=== PATIENT | male | born 1945 | race Hispanic/Latino ===

== ENCOUNTER 2018-10-29 10:38 | Inpatient (IN) | payer MEDICARE, OTHER ==
[~2018-10-29] VITALS: Ht 167.6 cm; Wt 62.6 kg
[2018-10-29] VITALS (7 sets, daily range): BP systolic 2–126; BP diastolic 56–126
[~2018-10-29 10:38] MED LIST: LORTAB 7.51 EA PO; Z.0.ASPIRIN325 MG PO; Z.0.DIOVAN HCT 3201 PO; Z.0.METOPROLOL SUCC5 PO; Z.0.NAPROXEN500 MG PO
--- OUTSIDE RECORDS SUMMARY | 2018-10-29 10:44 | XMS REPORT ---
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 Allergies, Adverse Reactions, Alerts Allergy Name Allergy Type Status Severity Reaction(s) Onset Date Inactive Date Treating Clinician Comments No Known Allergies DA Active U 2018-10-09 00:00:00 No Known Allergies DA Active U 2018-09-30 00:00:00 No Known Allergies DA Active U 2018-09-23 00:00:00 acetaminophen DA Active U 2014-04-21 00:00:00 sulfamethoxazole DA Active U 2014-04-21 00:00:00 trimethoprim DA Active U 2014-04-21 00:00:00 tramadol DA Active U 2014-04-21 00:00:00 Medications This patient has no known medications. Results Test Description Test Time Test Comments Text Results Atomic Results Result Comments CELIAC DISEASE PANEL 2018-10-28 05:09:00 IMMUNOGLOBULIN A (test code=IGA) 563 mg/dL 61-437 Performed At: [facility] [id number] Plaza MD Ph:[phone] At: [facility] [address] [id number] Salas MD Ph:[phone] TISSUE TRANSGLUTAMINASE IGA (test code=TTGIGAAB) <2 U/mL 0-3 Negative 0 - 3 Weak Positive 4 - 10 Positive >10 Tissue Transglutaminase (tTG) has been identified as the endomysial antigen. Studies have demonstr- ated that endomysial IgA antibodies have over 99% specificity for gluten sensitive enteropathy. AB ENDOMYSIAL IGA (test code=ENDOMAAB) Negative Negative TISSUE TRANSGLUTAMINASE IGG (test code=TTGIGGAB) <2 U/mL 0-5 Negative 0 - 5 Weak Positive 6 - 9 Positive >9 GLIADIN ANTIBODY, IGG (test code=GLIAB) 2 units 0-19 Negative 0 - 19 Weak Positive 20 - 30 Moderate to Strong Positive >30 GLIADIN ANTIBODY, IGA (test code=GLIAABA) 43 units 0-19 Negative 0 - 19 Weak Positive 20 - 30 Moderate to Strong Positive >30 SED [id number] 11:06:00* Test Item Value Reference Range Comments SED RATE (test code=SEDW) 6 mm/hr 0-15 WINTROBE METHOD: NORMAL RANGE FOR MEN: 0-9 MM/HR WOMAN: 0-20 MM/HR SED RATE [id number] 11:05:00* Test Item Value Reference Range Comments SED RATE WESTERGREN (test code=SEDW) 6 mm/hr 0-15 URIC [id number] 06:15:00* Test Item Value Reference Range Comments URIC ACID (test code=URIC) 4.4 mg/dL 2.6-7.2 VITAMIN [id number] 06:15:00* Test Item Value Reference Range Comments VITAMIN B12 (test code=VITB12) 405 pg/mL 193-986 THYROID PROFILE [id number] 06:15:00* Test Item Value Reference Range Comments T3 UPTAKE (test code=T3UP) 37.0 % 30.0-40.0 T4 (THYROXINE) (test code=T4) 7.3 ug/dL 4.5-13.9 T7 (FREE THYROXINE INDEX) (test code=T7) 2.70 FTI 1.3-5.1 THYROID STIMULATING HORMONE (test code=TSH) 1.610 uIU/mL 0.36-3.74 TSH REFERENCE RANGES: EUTHYROID: 0.35 - 4.3 mIU/mL HYPO : > 5.5 mIU/mL HYPER : < 0.35 mIU/mL BASIC METABOLIC [id number] 06:06:00* Test Item Value Reference Range Comments SODIUM (test code=NA) 144 mmol/L 136-145 POTASSIUM (test code=K) 3.7 mmol/L 3.5-5.1 CHLORIDE (test code=CL) 112.0 mmol/L 98-107 CARBON DIOXIDE (test code=CO2) 25.0 mmol/L 21-32 ANION GAP (test code=GAP) 10.7 10-20 GLUCOSE (test code=GLU) 96 mg/dL 74-106 BLOOD UREA NITROGEN (test code=BUN) 7 mg/dL 7-18 GLOMERULAR FILTRATION RATE (test code=GFR) > 60 mL/min >=60 Estimated GFR by using Modified MDRD formula.Chronic kidney disease is defined as either kidney damageor GFR <60 mL/min/1.73 m2 for >3 months. CREATININE (test code=CREAT) 0.60 mg/dL 0.7-1.3 BUN/CREATININE RATIO (test code=BUN/CREA) 11.0 10-20 CALCIUM (test code=CA) 8.9 mg/dL 8.5-10.1 [id number] 06:06:00* Test Item Value Reference Range Comments PHOSPHORUS (test code=PHOS) 3.5 mg/dL 2.5-4.9 [id number] 06:06:00* Test Item Value Reference Range Comments MAGNESIUM (test code=MAG) 1.6 mg/dL 1.8-2.4 FOLIC [id number] 06:06:00* Test Item Value Reference Range Comments FOLIC ACID (test code=FOL) 4.1 ng/mL 3.10-17.50 BASIC METABOLIC [id number] 05:47:00* Test Item Value Reference Range Comments SODIUM (test code=NA) 144 mmol/L 136-145 POTASSIUM (test code=K) 3.7 mmol/L 3.5-5.1 CHLORIDE (test code=CL) 112.0 mmol/L 98-107 CARBON DIOXIDE (test code=CO2) mmol/L 21-32 ANION GAP (test code=GAP) 10-20 GLUCOSE (test code=GLU) mg/dL 74-106 BLOOD UREA NITROGEN (test code=BUN) mg/dL 7-18 GLOMERULAR FILTRATION RATE (test code=GFR) mL/min >=60 CREATININE (test code=CREAT) mg/dL 0.7-1.3 BUN/CREATININE RATIO (test code=BUN/CREA) 10-20 CALCIUM (test code=CA) mg/dL 8.5-10.1 [id number] 05:47:00* Test Item Value Reference Range Comments PHOSPHORUS (test code=PHOS) mg/dL 2.5-4.9 [id number] 05:47:00* Test Item Value Reference Range Comments MAGNESIUM (test code=MAG) mg/dL 1.8-2.4 FOLIC [id number] 05:47:00* Test Item Value Reference Range Comments FOLIC ACID (test code=FOL) ng/mL 3.10-17.50 CBC W/AUTO [id number] 05:23:00* Test Item Value Reference Range Comments WHITE BLOOD CELL (test code=WBC) 11.0 K/mm3 4.5-12.5 RED BLOOD CELL (test code=RBC) 4.25 mill/mm3 4.0-5.8 HEMOGLOBIN (test code=HGB) 13.2 gram/dL 13.0-17.5 HEMATOCRIT (test code=HCT) 39.8 % 42.0-52.0 MEAN CELL VOLUME (test code=MCV) 93.6 fL 80-98 MEAN CELL HGB (test code=MCH) 31.1 picogram 27.0-33.0 MEAN CELL HGB CONCETRATION (test code=MCHC) 33.2 gram/dL 33.0-36.0 RED CELL DISTRIBUTION WIDTH (test code=RDW) 14.4 % 11.6-16.2 RED CELL DISTRIBUTION WIDTH SD (test code=RDW-SD) 49.3 fL 37.0-51.0 PLATELET COUNT (test code=PLT) 172 K/mm3 150-450 MEAN PLATELET VOLUME (test code=MPV) 11.1 fL 6.7-11.0 NEUTROPHIL % (test code=NT%) 75.5 % 39.0-69.0 IMMATURE GRANULOCYTE % (test code=IG%) 0.7 % 0.0-5.0 LYMPHOCYTE % (test code=LY%) 14.8 % 25.0-55.0 MONOCYTE % (test code=MO%) 8.0 % 0.0-10.0 EOSINOPHIL % (test code=EO%) 0.7 % 0.0-5.0 BASOPHIL % (test code=BA%) 0.3 % 0.0-1.0 NUCLEATED RBC % (test code=NRBC%) 0.0 % 0-0 NEUTROPHIL # (test code=NT#) 8.29 K/mm3 1.8-7.7 IMMATURE GRANULOCYTE # (test code=IG#) 0.08 x10 3/uL 0-0.03 LYMPHOCYTE # (test code=LY#) 1.63 K/mm3 1.0-5.0 MONOCYTE # (test code=MO#) 0.88 K/mm3 0-0.8 EOSINOPHIL # (test code=EO#) 0.08 K/mm3 0.0-0.5 BASOPHIL # (test code=BA#) 0.03 K/mm3 0.0-0.2 NUCLEATED RBC # (test code=NRBC#) 0.00 K/mm3 0.0-0.1 MANUAL DIFF REQUIRED (test code=MDIFF) NO CBC W/AUTO [id number] 05:20:00* Test Item Value Reference Range Comments WHITE BLOOD CELL (test code=WBC) K/mm3 4.5-12.5 RED BLOOD CELL (test code=RBC) mill/mm3 4.0-5.8 HEMOGLOBIN (test code=HGB) 13.2 gram/dL 13.0-17.5 HEMATOCRIT (test code=HCT) % 42.0-52.0 MEAN CELL VOLUME (test code=MCV) fL 80-98 MEAN CELL HGB (test code=MCH) picogram 27.0-33.0 MEAN CELL HGB CONCETRATION (test code=MCHC) gram/dL 33.0-36.0 RED CELL DISTRIBUTION WIDTH (test code=RDW) % 11.6-16.2 RED CELL DISTRIBUTION WIDTH SD (test code=RDW-SD) fL 37.0-51.0 PLATELET COUNT (test code=PLT) K/mm3 150-450 MEAN PLATELET VOLUME (test code=MPV) fL 6.7-11.0 NEUTROPHIL % (test code=NT%) % 39.0-69.0 IMMATURE GRANULOCYTE % (test code=IG%) % 0.0-5.0 LYMPHOCYTE % (test code=LY%) % 25.0-55.0 MONOCYTE % (test code=MO%) % 0.0-10.0 EOSINOPHIL % (test code=EO%) % 0.0-5.0 BASOPHIL % (test code=BA%) % 0.0-1.0 NEUTROPHIL # (test code=NT#) K/mm3 1.8-7.7 LYMPHOCYTE # (test code=LY#) K/mm3 1.0-5.0 MONOCYTE # (test code=MO#) K/mm3 0-0.8 EOSINOPHIL # (test code=EO#) K/mm3 0.0-0.5 BASOPHIL # (test code=BA#) K/mm3 0.0-0.2 BASIC METABOLIC [id number] 07:02:00* Test Item Value Reference Range Comments SODIUM (test code=NA) 146 mmol/L 136-145 POTASSIUM (test code=K) 3.8 mmol/L 3.5-5.1 CHLORIDE (test code=CL) 118.0 mmol/L 98-107 CARBON DIOXIDE (test code=CO2) 19.0 mmol/L 21-32 ANION GAP (test code=GAP) 12.8 10-20 GLUCOSE (test code=GLU) 99 mg/dL 74-106 BLOOD UREA NITROGEN (test code=BUN) 5 mg/dL 7-18 GLOMERULAR FILTRATION RATE (test code=GFR) > 60 mL/min >=60 Estimated GFR by using Modified MDRD formula.Chronic kidney disease is defined as either kidney damageor GFR <60 mL/min/1.73 m2 for >3 months. CREATININE (test code=CREAT) 0.60 mg/dL 0.7-1.3 BUN/CREATININE RATIO (test code=BUN/CREA) 8.3 10-20 CALCIUM (test code=CA) 8.9 mg/dL 8.5-10.1 BASIC METABOLIC [id number] 06:48:00* Test Item Value Reference Range Comments SODIUM (test code=NA) 146 mmol/L 136-145 POTASSIUM (test code=K) 3.8 mmol/L 3.5-5.1 CHLORIDE (test code=CL) 118.0 mmol/L 98-107 CARBON DIOXIDE (test code=CO2) mmol/L 21-32 ANION GAP (test code=GAP) 10-20 GLUCOSE (test code=GLU) mg/dL 74-106 BLOOD UREA NITROGEN (test code=BUN) mg/dL 7-18 GLOMERULAR FILTRATION RATE (test code=GFR) mL/min >=60 CREATININE (test code=CREAT) mg/dL 0.7-1.3 BUN/CREATININE RATIO (test code=BUN/CREA) 10-20 CALCIUM (test code=CA) mg/dL 8.5-10.1 BASIC METABOLIC [id number] 06:00:00* Test Item Value Reference Range Comments SODIUM (test code=NA) 146 mmol/L 136-145 POTASSIUM (test code=K) 3.6 mmol/L 3.5-5.1 CHLORIDE (test code=CL) 118.0 mmol/L 98-107 CARBON DIOXIDE (test code=CO2) 18.0 mmol/L 21-32 ANION GAP (test code=GAP) 13.6 10-20 GLUCOSE (test code=GLU) 95 mg/dL 74-106 BLOOD UREA NITROGEN (test code=BUN) 7 mg/dL 7-18 GLOMERULAR FILTRATION RATE (test code=GFR) > 60 mL/min >=60 Estimated GFR by using Modified MDRD formula.Chronic kidney disease is defined as either kidney damageor GFR <60 mL/min/1.73 m2 for >3 months. CREATININE (test code=CREAT) 0.60 mg/dL 0.7-1.3 BUN/CREATININE RATIO (test code=BUN/CREA) 11.9 10-20 CALCIUM (test code=CA) 9.3 mg/dL 8.5-10.1 BASIC METABOLIC [id number] 05:49:00* Test Item Value Reference Range Comments SODIUM (test code=NA) 146 mmol/L 136-145 POTASSIUM (test code=K) 3.6 mmol/L 3.5-5.1 CHLORIDE (test code=CL) 118.0 mmol/L 98-107 CARBON DIOXIDE (test code=CO2) mmol/L 21-32 ANION GAP (test code=GAP) 10-20 GLUCOSE (test code=GLU) mg/dL 74-106 BLOOD UREA NITROGEN (test code=BUN) mg/dL 7-18 GLOMERULAR FILTRATION RATE (test code=GFR) mL/min >=60 CREATININE (test code=CREAT) mg/dL 0.7-1.3 BUN/CREATININE RATIO (test code=BUN/CREA) 10-20 CALCIUM (test code=CA) mg/dL 8.5-10.1 CBC W/AUTO [id number] 05:34:00* Test Item Value Reference Range Comments WHITE BLOOD CELL (test code=WBC) 5.4 K/mm3 4.5-12.5 RED BLOOD CELL (test code=RBC) 3.97 mill/mm3 4.0-5.8 HEMOGLOBIN (test code=HGB) 12.5 gram/dL 13.0-17.5 HEMATOCRIT (test code=HCT) 37.5 % 42.0-52.0 MEAN CELL VOLUME (test code=MCV) 94.5 fL 80-98 MEAN CELL HGB (test code=MCH) 31.5 picogram 27.0-33.0 MEAN CELL HGB CONCETRATION (test code=MCHC) 33.3 gram/dL 33.0-36.0 RED CELL DISTRIBUTION WIDTH (test code=RDW) 14.4 % 11.6-16.2 RED CELL DISTRIBUTION WIDTH SD (test code=RDW-SD) 49.5 fL 37.0-51.0 PLATELET COUNT (test code=PLT) 177 K/mm3 150-450 MEAN PLATELET VOLUME (test code=MPV) 11.2 fL 6.7-11.0 NEUTROPHIL % (test code=NT%) 59.7 % 39.0-69.0 IMMATURE GRANULOCYTE % (test code=IG%) 0.6 % 0.0-5.0 LYMPHOCYTE % (test code=LY%) 26.1 % 25.0-55.0 MONOCYTE % (test code=MO%) 10.2 % 0.0-10.0 EOSINOPHIL % (test code=EO%) 2.8 % 0.0-5.0 BASOPHIL % (test code=BA%) 0.6 % 0.0-1.0 NUCLEATED RBC % (test code=NRBC%) 0.0 % 0-0 NEUTROPHIL # (test code=NT#) 3.24 K/mm3 1.8-7.7 IMMATURE GRANULOCYTE # (test code=IG#) 0.03 x10 3/uL 0-0.03 LYMPHOCYTE # (test code=LY#) 1.41 K/mm3 1.0-5.0 MONOCYTE # (test code=MO#) 0.55 K/mm3 0-0.8 EOSINOPHIL # (test code=EO#) 0.15 K/mm3 0.0-0.5 BASOPHIL # (test code=BA#) 0.03 K/mm3 0.0-0.2 NUCLEATED RBC # (test code=NRBC#) 0.00 K/mm3 0.0-0.1 MANUAL DIFF REQUIRED (test code=MDIFF) NO BASIC METABOLIC [id number] 05:38:00* Test Item Value Reference Range Comments SODIUM (test code=NA) 146 mmol/L 136-145 POTASSIUM (test code=K) 4.3 mmol/L 3.5-5.1 CHLORIDE (test code=CL) 117.0 mmol/L 98-107 CARBON DIOXIDE (test code=CO2) 21.0 mmol/L 21-32 ANION GAP (test code=GAP) 12.3 10-20 GLUCOSE (test code=GLU) 86 mg/dL 74-106 BLOOD UREA NITROGEN (test code=BUN) 3 mg/dL 7-18 GLOMERULAR FILTRATION RATE (test code=GFR) > 60 mL/min >=60 Estimated GFR by using Modified MDRD formula.Chronic kidney disease is defined as either kidney damageor GFR <60 mL/min/1.73 m2 for >3 months. CREATININE (test code=CREAT) 0.70 mg/dL 0.7-1.3 BUN/CREATININE RATIO (test code=BUN/CREA) 4.3 10-20 CALCIUM (test code=CA) 9.0 mg/dL 8.5-10.1 BASIC METABOLIC [id number] 05:27:00* Test Item Value Reference Range Comments SODIUM (test code=NA) 146 mmol/L 136-145 POTASSIUM (test code=K) 4.3 mmol/L 3.5-5.1 CHLORIDE (test code=CL) 117.0 mmol/L 98-107 CARBON DIOXIDE (test code=CO2) mmol/L 21-32 ANION GAP (test code=GAP) 10-20 GLUCOSE (test code=GLU) mg/dL 74-106 BLOOD UREA NITROGEN (test code=BUN) mg/dL 7-18 GLOMERULAR FILTRATION RATE (test code=GFR) mL/min >=60 CREATININE (test code=CREAT) mg/dL 0.7-1.3 BUN/CREATININE RATIO (test code=BUN/CREA) 10-20 CALCIUM (test code=CA) mg/dL 8.5-10.1 CBC W/AUTO [id number] 05:03:00* Test Item Value Reference Range Comments WHITE BLOOD CELL (test code=WBC) 5.7 K/mm3 4.5-12.5 RED BLOOD CELL (test code=RBC) 4.34 mill/mm3 4.0-5.8 HEMOGLOBIN (test code=HGB) 13.6 gram/dL 13.0-17.5 HEMATOCRIT (test code=HCT) 40.9 % 42.0-52.0 MEAN CELL VOLUME (test code=MCV) 94.2 fL 80-98 MEAN CELL HGB (test code=MCH) 31.3 picogram 27.0-33.0 MEAN CELL HGB CONCETRATION (test code=MCHC) 33.3 gram/dL 33.0-36.0 RED CELL DISTRIBUTION WIDTH (test code=RDW) 14.2 % 11.6-16.2 RED CELL DISTRIBUTION WIDTH SD (test code=RDW-SD) 49.3 fL 37.0-51.0 PLATELET COUNT (test code=PLT) 149 K/mm3 150-450 MEAN PLATELET VOLUME (test code=MPV) 11.5 fL 6.7-11.0 NEUTROPHIL % (test code=NT%) 47.6 % 39.0-69.0 IMMATURE GRANULOCYTE % (test code=IG%) 0.9 % 0.0-5.0 LYMPHOCYTE % (test code=LY%) 29.5 % 25.0-55.0 MONOCYTE % (test code=MO%) 13.9 % 0.0-10.0 EOSINOPHIL % (test code=EO%) 7.4 % 0.0-5.0 BASOPHIL % (test code=BA%) 0.7 % 0.0-1.0 NUCLEATED RBC % (test code=NRBC%) 0.0 % 0-0 NEUTROPHIL # (test code=NT#) 2.70 K/mm3 1.8-7.7 IMMATURE GRANULOCYTE # (test code=IG#) 0.05 x10 3/uL 0-0.03 LYMPHOCYTE # (test code=LY#) 1.67 K/mm3 1.0-5.0 MONOCYTE # (test code=MO#) 0.79 K/mm3 0-0.8 EOSINOPHIL # (test code=EO#) 0.42 K/mm3 0.0-0.5 BASOPHIL # (test code=BA#) 0.04 K/mm3 0.0-0.2 NUCLEATED RBC # (test code=NRBC#) 0.00 K/mm3 0.0-0.1 MANUAL DIFF REQUIRED (test code=MDIFF) NO CBC W/AUTO [id number] 04:52:00* Test Item Value Reference Range Comments WHITE BLOOD CELL (test code=WBC) K/mm3 4.5-12.5 RED BLOOD CELL (test code=RBC) mill/mm3 4.0-5.8 HEMOGLOBIN (test code=HGB) 13.6 gram/dL 13.0-17.5 HEMATOCRIT (test code=HCT) % 42.0-52.0 MEAN CELL VOLUME (test code=MCV) fL 80-98 MEAN CELL HGB (test code=MCH) picogram 27.0-33.0 MEAN CELL HGB CONCETRATION (test code=MCHC) gram/dL 33.0-36.0 RED CELL DISTRIBUTION WIDTH (test code=RDW) % 11.6-16.2 RED CELL DISTRIBUTION WIDTH SD (test code=RDW-SD) fL 37.0-51.0 PLATELET COUNT (test code=PLT) K/mm3 150-450 MEAN PLATELET VOLUME (test code=MPV) fL 6.7-11.0 NEUTROPHIL % (test code=NT%) % 39.0-69.0 IMMATURE GRANULOCYTE % (test code=IG%) % 0.0-5.0 LYMPHOCYTE % (test code=LY%) % 25.0-55.0 MONOCYTE % (test code=MO%) % 0.0-10.0 EOSINOPHIL % (test code=EO%) % 0.0-5.0 BASOPHIL % (test code=BA%) % 0.0-1.0 NEUTROPHIL # (test code=NT#) K/mm3 1.8-7.7 LYMPHOCYTE # (test code=LY#) K/mm3 1.0-5.0 MONOCYTE # (test code=MO#) K/mm3 0-0.8 EOSINOPHIL # (test code=EO#) K/mm3 0.0-0.5 BASOPHIL # (test code=BA#) K/mm3 0.0-0.2 AB CMV [id number] 13:09:00* Test Item Value Reference Range Comments AB CMV IGM (test code=CMVMAB) <30.0 AU/mL 0.0-29.9 Negative <30.0 Equivocal 30.0 - 34.9 Positive >34.9A positive result is generally indicative of acuteinfection, reactivation or persistent IgM production.Performed At: [facility] [id number] Plaza MD Ph:[phone] -CMVMAB-EBVABAB EBSTEIN LOVE VIRUS [id number] 13:09:00* Test Item Value Reference Range Comments EBV VIRAL CAPSID AB IGM (test code=EBVCAM) <36.0 U/mL 0.0-35.9 Negative <36.0 Equivocal 36.0 - 43.9 Positive >43.9 EBV VIRAL CAPSID AB IGG (test code=EBVCAG) >600.0 U/mL 0.0-17.9 Negative <18.0 Equivocal 18.0 - 21.9 Positive >21.9 DAT-LOVE INTERPRETATION (test code=EBVI) () EBV Interpretation ChartInterpretation EBV-IgM EA(D)-IgG VCA-IgG EBNA-IgGEBV Seronegative - - - -Early Phase + - - -Acute Primary + +or- + -InfectionConvalescence/Past - +or- + +InfectionReactivated +or- +or- + +Infection + Antibody Present - Antibody AbsentPerformed At: [facility] [id number] Kyle L MD Ph:[phone] reported result: Edited by: ALLY on 10/13/18:[id number] 1309: EBVI previously reported as: AB DAT LOVE EARLY AG (test code=EBVEAB) <9.0 U/mL 0.0-8.9 Negative < 9.0 Equivocal 9.0 - 10.9 Positive >10.9 AB DAT LOVE NUCLEAR AG (test code=EBVNAAB) 131.0 U/mL 0.0-17.9 Negative <18.0 Equivocal 18.0 - 21.9 Positive >21.9 -CMVMAB-EBVABAB CMV [id number] 12:09:00* Test Item Value Reference Range Comments AB CMV IGM (test code=CMVMAB) <30.0 AU/mL 0.0-29.9 Negative <30.0 Equivocal 30.0 - 34.9 Positive >34.9A positive result is generally indicative of acuteinfection, reactivation or persistent IgM production.Performed At: [facility] [address] [place], [place] [id number] Plaza MD Ph:[phone] -CMVMAB-EBVABAB EBSTEIN LOVE VIRUS [id number] 12:09:00* Test Item Value Reference Range Comments EBV VIRAL CAPSID AB IGM (test code=EBVCAM) U/mL EBV VIRAL CAPSID AB IGG (test code=EBVCAG) U/mL AB DAT LOVE EARLY AG (test code=EBVEAB) U/mL AB DAT LOVE NUCLEAR AG (test code=EBVNAAB) U/mL -CMVMAB-EBVABBASIC METABOLIC [id number] 08:46:00* Test Item Value Reference Range Comments SODIUM (test code=NA) 144 mmol/L 136-145 POTASSIUM (test code=K) 4.1 mmol/L 3.5-5.1 CHLORIDE (test code=CL) 118.0 mmol/L 98-107 CARBON DIOXIDE (test code=CO2) 17.0 mmol/L 21-32 ANION GAP (test code=GAP) 13.1 10-20 GLUCOSE (test code=GLU) 74 mg/dL 74-106 BLOOD UREA NITROGEN (test code=BUN) 4 mg/dL 7-18 GLOMERULAR FILTRATION RATE (test code=GFR) > 60 mL/min >=60 Estimated GFR by using Modified MDRD formula.Chronic kidney disease is defined as either kidney damageor GFR <60 mL/min/1.73 m2 for >3 months. CREATININE (test code=CREAT) 0.70 mg/dL 0.7-1.3 BUN/CREATININE RATIO (test code=BUN/CREA) 6.1 10-20 CALCIUM (test code=CA) 8.5 mg/dL 8.5-10.1 BASIC METABOLIC [id number] 08:41:00* Test Item Value Reference Range Comments SODIUM (test code=NA) 144 mmol/L 136-145 POTASSIUM (test code=K) 4.1 mmol/L 3.5-5.1 CHLORIDE (test code=CL) 118.0 mmol/L 98-107 CARBON DIOXIDE (test code=CO2) mmol/L 21-32 ANION GAP (test code=GAP) 10-20 GLUCOSE (test code=GLU) mg/dL 74-106 BLOOD UREA NITROGEN (test code=BUN) mg/dL 7-18 GLOMERULAR FILTRATION RATE (test code=GFR) mL/min >=60 CREATININE (test code=CREAT) mg/dL 0.7-1.3 BUN/CREATININE RATIO (test code=BUN/CREA) 10-20 CALCIUM (test code=CA) mg/dL 8.5-10.1 CBC W/AUTO [id number] 08:03:00* Test Item Value Reference Range Comments WHITE BLOOD CELL (test code=WBC) 5.8 K/mm3 4.5-12.5 RED BLOOD CELL (test code=RBC) 4.35 mill/mm3 4.0-5.8 HEMOGLOBIN (test code=HGB) 13.5 gram/dL 13.0-17.5 HEMATOCRIT (test code=HCT) 41.8 % 42.0-52.0 MEAN CELL VOLUME (test code=MCV) 96.1 fL 80-98 MEAN CELL HGB (test code=MCH) 31.0 picogram 27.0-33.0 MEAN CELL HGB CONCETRATION (test code=MCHC) 32.3 gram/dL 33.0-36.0 RED CELL DISTRIBUTION WIDTH (test code=RDW) 15.0 % 11.6-16.2 RED CELL DISTRIBUTION WIDTH SD (test code=RDW-SD) 53.3 fL 37.0-51.0 PLATELET COUNT (test code=PLT) 144 K/mm3 150-450 MEAN PLATELET VOLUME (test code=MPV) 11.5 fL 6.7-11.0 NEUTROPHIL % (test code=NT%) 55.8 % 39.0-69.0 IMMATURE GRANULOCYTE % (test code=IG%) 0.5 % 0.0-5.0 LYMPHOCYTE % (test code=LY%) 28.1 % 25.0-55.0 MONOCYTE % (test code=MO%) 9.4 % 0.0-10.0 EOSINOPHIL % (test code=EO%) 5.5 % 0.0-5.0 BASOPHIL % (test code=BA%) 0.7 % 0.0-1.0 NUCLEATED RBC % (test code=NRBC%) 0.0 % 0-0 NEUTROPHIL # (test code=NT#) 3.25 K/mm3 1.8-7.7 IMMATURE GRANULOCYTE # (test code=IG#) 0.03 x10 3/uL 0-0.03 LYMPHOCYTE # (test code=LY#) 1.64 K/mm3 1.0-5.0 MONOCYTE # (test code=MO#) 0.55 K/mm3 0-0.8 EOSINOPHIL # (test code=EO#) 0.32 K/mm3 0.0-0.5 BASOPHIL # (test code=BA#) 0.04 K/mm3 0.0-0.2 NUCLEATED RBC # (test code=NRBC#) 0.00 K/mm3 0.0-0.1 MANUAL DIFF REQUIRED (test code=MDIFF) NO CBC W/AUTO [id number] 08:02:00* Test Item Value Reference Range Comments WHITE BLOOD CELL (test code=WBC) K/mm3 4.5-12.5 RED BLOOD CELL (test code=RBC) mill/mm3 4.0-5.8 HEMOGLOBIN (test code=HGB) 13.5 gram/dL 13.0-17.5 HEMATOCRIT (test code=HCT) % 42.0-52.0 MEAN CELL VOLUME (test code=MCV) fL 80-98 MEAN CELL HGB (test code=MCH) picogram 27.0-33.0 MEAN CELL HGB CONCETRATION (test code=MCHC) gram/dL 33.0-36.0 RED CELL DISTRIBUTION WIDTH (test code=RDW) % 11.6-16.2 RED CELL DISTRIBUTION WIDTH SD (test code=RDW-SD) fL 37.0-51.0 PLATELET COUNT (test code=PLT) K/mm3 150-450 MEAN PLATELET VOLUME (test code=MPV) fL 6.7-11.0 NEUTROPHIL % (test code=NT%) % 39.0-69.0 IMMATURE GRANULOCYTE % (test code=IG%) % 0.0-5.0 LYMPHOCYTE % (test code=LY%) % 25.0-55.0 MONOCYTE % (test code=MO%) % 0.0-10.0 EOSINOPHIL % (test code=EO%) % 0.0-5.0 BASOPHIL % (test code=BA%) % 0.0-1.0 NEUTROPHIL # (test code=NT#) K/mm3 1.8-7.7 LYMPHOCYTE # (test code=LY#) K/mm3 1.0-5.0 MONOCYTE # (test code=MO#) K/mm3 0-0.8 EOSINOPHIL # (test code=EO#) K/mm3 0.0-0.5 BASOPHIL # (test code=BA#) K/mm3 0.0-0.2 - MRA ABD [id number] 21:16:00 FAX: Brian Lowe [phone] [place]: St: ADM Name: CHARLY GONSALVES [facility] : [birth year] Age/S: 73/M [address] [facility] Unit #: [id number] Loc: [address] [place] [id number] Phys: Brian Lowe MD Acct: [id number] Dis Date: Status: ADM IN PHONE #: [phone] Exam Date: 10/12/2018 1557 FAX #: [phone] Reason: PAIN / COLITIS EXAMS: CPT CODE: [id number] MRA ABD W/CONT 86806 HISTORY: PAIN / COLITIS TECHNIQUE: Axial T2 fat saturation, axial postcontrast fat saturation T1, and coronal postcontrast T1 fat saturation images. COMPARISON: CT of the abdomen and pelvis October 09, 2018 FINDINGS: Hepatobiliary system: There are multiple noncalcified stones within the gallbladder. The liver is within normal limits. Spleen: Grossly normal. Pancreas: Mild fatty replacement. Adrenal g lands: Grossly normal. Kidneys: Multiple simple appearing cortical cysts bilaterally. Visualized gastrointestinal tract: The stomach is within normal limits. Previously seen colonic distention has improved. For example the transverse colon previously was distended up to 5.3 cm but now measures up to 4.1 cm. There are a few fluid filled loops of small bowel but no abnormal small bowel distention. Vascular struct ures: Normal caliber of the abdominal aorta and IVC. No occlusion or steno sis is seen in the abdominal aorta or the proximal branches of the mesente pradeep arteries. Musculoskeletal structures: Degenerative changes are seen throughout the visualized spine. Peritoneum and retrop eritoneum: No abnormal-appearing fluid collections. IMPRESSION: Improvement in the previously seen colonic dist ention. No abnormal bowel wall thickening is seen on this exam to sugges t an infectious or inflammatory or ischemic process involving the bowel. No abnormal caliber, stenosis, or occlusion involving the visualized portions of the aorta or the proximal mesenteric arteries. Choleli thiasis. No pericholecystic fluid or pericholecystic PAGE 1 Signed Report (CONTINUED) FAX: Brian Lowe [phone] [place]: St: ADM Name: CHARLY FLORES [facility] : 1945 Age/S: 73/M 41 [address] [facility] Unit #: [id number] Loc: V.2064 [place] [address] Phys: Brian Lowe MD Acct: [id number] Dis Date: Status: ADM IN PHONE #: [phone] Exam Date: 10/12/2018 1557 FAX #: [phone] Reason: PAIN / COLITIS EXAMS: CPT CODE: [id number] MRA ABD W/CONT 12014 <Continued> inflammatory changes to suggest cholecystitis however. at 2115 Reported and signed by: Joon Wick MD CC: Brian Lowe Technologist: RT COLUM[facility] - TRINH Trnarrd Date/Time/By: 10/12/2018 (2115) : By: [email or web address] Orig Print D/T: S: 10/12/2018 (2118) PAGE 2 Signed Report [id number] 12:40:00* Test Item Value Reference Range Comments GLUBED (test code=GLUBED) 82 mg/dL 74-106 Performed by certified stretching machine operator at [facility] AG GIARDIA [id number] 11:09:00* Test Item Value Reference Range Comments AG GIARDIA FECES (test code=GIARDAG) Negative Negative Performed At: [facility] [address] [id number] Eduardo Salas MD Ph:[phone] SPECIMEN COMMENTS: StoolsBASIC METABOLIC [id number] 05:44:00* Test Item Value Reference Range Comments SODIUM (test code=NA) 144 mmol/L 136-145 POTASSIUM (test code=K) 4.1 mmol/L 3.5-5.1 CHLORIDE (test code=CL) 122.0 mmol/L 98-107 CARBON DIOXIDE (test code=CO2) 17.0 mmol/L 21-32 ANION GAP (test code=GAP) 9.1 10-20 GLUCOSE (test code=GLU) 78 mg/dL 74-106 BLOOD UREA NITROGEN (test code=BUN) 9 mg/dL 7-18 GLOMERULAR FILTRATION RATE (test code=GFR) > 60 mL/min >=60 Estimated GFR by using Modified MDRD formula.Chronic kidney disease is defined as either kidney damageor GFR <60 mL/min/1.73 m2 for >3 months. CREATININE (test code=CREAT) 0.80 mg/dL 0.7-1.3 BUN/CREATININE RATIO (test code=BUN/CREA) 11.2 10-20 CALCIUM (test code=CA) 8.5 mg/dL 8.5-10.1 BASIC METABOLIC [id number] 05:33:00* Test Item Value Reference Range Comments SODIUM (test code=NA) 144 mmol/L 136-145 POTASSIUM (test code=K) 4.1 mmol/L 3.5-5.1 CHLORIDE (test code=CL) 122.0 mmol/L 98-107 CARBON DIOXIDE (test code=CO2) mmol/L 21-32 ANION GAP (test code=GAP) 10-20 GLUCOSE (test code=GLU) mg/dL 74-106 BLOOD UREA NITROGEN (test code=BUN) mg/dL 7-18 GLOMERULAR FILTRATION RATE (test code=GFR) mL/min >=60 CREATININE (test code=CREAT) mg/dL 0.7-1.3 BUN/CREATININE RATIO (test code=BUN/CREA) 10-20 CALCIUM (test code=CA) mg/dL 8.5-10.1 CBC W/AUTO [id number] 05:16:00* Test Item Value Reference Range Comments WHITE BLOOD CELL (test code=WBC) 5.9 K/mm3 4.5-12.5 RED BLOOD CELL (test code=RBC) 3.92 mill/mm3 4.0-5.8 HEMOGLOBIN (test code=HGB) 12.3 gram/dL 13.0-17.5 HEMATOCRIT (test code=HCT) 38.3 % 42.0-52.0 MEAN CELL VOLUME (test code=MCV) 97.7 fL 80-98 MEAN CELL HGB (test code=MCH) 31.4 picogram 27.0-33.0 MEAN CELL HGB CONCETRATION (test code=MCHC) 32.1 gram/dL 33.0-36.0 RED CELL DISTRIBUTION WIDTH (test code=RDW) 15.3 % 11.6-16.2 RED CELL DISTRIBUTION WIDTH SD (test code=RDW-SD) 55.2 fL 37.0-51.0 PLATELET COUNT (test code=PLT) 146 K/mm3 150-450 MEAN PLATELET VOLUME (test code=MPV) 11.5 fL 6.7-11.0 NEUTROPHIL % (test code=NT%) 53.7 % 39.0-69.0 IMMATURE GRANULOCYTE % (test code=IG%) 0.5 % 0.0-5.0 LYMPHOCYTE % (test code=LY%) 27.8 % 25.0-55.0 MONOCYTE % (test code=MO%) 11.7 % 0.0-10.0 EOSINOPHIL % (test code=EO%) 5.6 % 0.0-5.0 BASOPHIL % (test code=BA%) 0.7 % 0.0-1.0 NUCLEATED RBC % (test code=NRBC%) 0.0 % 0-0 NEUTROPHIL # (test code=NT#) 3.17 K/mm3 1.8-7.7 IMMATURE GRANULOCYTE # (test code=IG#) 0.03 x10 3/uL 0-0.03 LYMPHOCYTE # (test code=LY#) 1.64 K/mm3 1.0-5.0 MONOCYTE # (test code=MO#) 0.69 K/mm3 0-0.8 EOSINOPHIL # (test code=EO#) 0.33 K/mm3 0.0-0.5 BASOPHIL # (test code=BA#) 0.04 K/mm3 0.0-0.2 NUCLEATED RBC # (test code=NRBC#) 0.00 K/mm3 0.0-0.1 MANUAL DIFF REQUIRED (test code=MDIFF) NO AB HIV 1 20:51:00* Test Item Value Reference Range Comments AB HIV 1 2 (test code=XBL75HF) Nonreactive NonReactive It is recognized that currently available assays for thedetection of antibodies to HIV-1 and/or HIV-2 may notdetect all infected individuals. A negative test result doesnot exclude the possibility of exposure to or infection withHIV. HIV antibodies may be undetectable in some stages ofthe infection and in some clinical conditions. CBC W/MANUAL [id number] 06:50:00* Test Item Value Reference Range Comments WHITE BLOOD CELL (test code=WBC) 6.2 K/mm3 4.5-12.5 RED BLOOD CELL (test code=RBC) 4.10 mill/mm3 4.0-5.8 HEMOGLOBIN (test code=HGB) 12.9 gram/dL 13.0-17.5 RESULT VERIFIED BY REPEAT ANALYSIS HEMATOCRIT (test code=HCT) 39.0 % 42.0-52.0 MEAN CELL VOLUME (test code=MCV) 95.1 fL 80-98 MEAN CELL HGB (test code=MCH) 31.5 picogram 27.0-33.0 MEAN CELL HGB CONCETRATION (test code=MCHC) 33.1 gram/dL 33.0-36.0 RED CELL DISTRIBUTION WIDTH (test code=RDW) 15.1 % 11.6-16.2 RED CELL DISTRIBUTION WIDTH SD (test code=RDW-SD) 52.6 fL 37.0-51.0 PLATELET COUNT (test code=PLT) 150 K/mm3 150-450 MEAN PLATELET VOLUME (test code=MPV) 11.5 fL 6.7-11.0 IMMATURE GRANULOCYTE % (test code=IG%) 0.3 % 0.0-5.0 NUCLEATED RBC % (test code=NRBC%) 0.0 % 0-0 NEUTROPHIL # (test code=NT#) 3.97 K/mm3 1.8-7.7 IMMATURE GRANULOCYTE # (test code=IG#) 0.02 x10 3/uL 0-0.03 LYMPHOCYTE # (test code=LY#) 1.39 K/mm3 1.0-5.0 MONOCYTE # (test code=MO#) 0.71 K/mm3 0-0.8 EOSINOPHIL # (test code=EO#) 0.06 K/mm3 0.0-0.5 BASOPHIL # (test code=BA#) 0.04 K/mm3 0.0-0.2 NUCLEATED RBC # (test code=NRBC#) 0.00 K/mm3 0.0-0.1 MANUAL DIFF REQUIRED (test code=MDIFF) YES STAIN ACCEPTABILITY (test code=STN ACCEPTABLE) STAIN ACCEPTABLE TOTAL CELLS COUNTED (test code=TCC) 115 #CELLS SEGMENTED NEUTROPHILS (test code=SEG) 65.2 % 39-69 BAND NEUTROPHIL (test code=BAND) 8.7 % 0-10 LYMPHOCYTE (test code=LYMPH) 10.4 % 25-55 REACTIVE LYMPH (test code=RELYMPH) 7.8 % MONOCYTE (test code=MON) 6.1 % 0-10 EOSINOPHIL (test code=EOS) 1.8 % 0.0-5.0 BASOPHIL (test code=BASO) 0 % 0-1.0 METAMYELOCYTE (test code=META) 0 % 0-0 MYELOCYTE (test code=MYELO) 0 % 0.0-0.0 PROMYELOCYTE (test code=PROM) 0 % 0-0 POIKILOCYTOSIS (test code=POIK) 3+ MORPHOLOGY COMMENT (test code=MOC) NORMAL PLATELET ESTIMATE (test code=PLTEST) ADEQUATE PLATELET MORPHOLOGY (test code=PLTMORPH) NORMAL IMMATURE FORMS (test code=IMMAT) 0 % 0-0 CBC W/MANUAL [id number] 05:26:00* Test Item Value Reference Range Comments WHITE BLOOD CELL (test code=WBC) 6.2 K/mm3 4.5-12.5 RED BLOOD CELL (test code=RBC) 4.10 mill/mm3 4.0-5.8 HEMOGLOBIN (test code=HGB) 12.9 gram/dL 13.0-17.5 RESULT VERIFIED BY REPEAT ANALYSIS HEMATOCRIT (test code=HCT) 39.0 % 42.0-52.0 MEAN CELL VOLUME (test code=MCV) 95.1 fL 80-98 MEAN CELL HGB (test code=MCH) 31.5 picogram 27.0-33.0 MEAN CELL HGB CONCETRATION (test code=MCHC) 33.1 gram/dL 33.0-36.0 RED CELL DISTRIBUTION WIDTH (test code=RDW) 15.1 % 11.6-16.2 RED CELL DISTRIBUTION WIDTH SD (test code=RDW-SD) 52.6 fL 37.0-51.0 PLATELET COUNT (test code=PLT) 150 K/mm3 150-450 MEAN PLATELET VOLUME (test code=MPV) 11.5 fL 6.7-11.0 IMMATURE GRANULOCYTE % (test code=IG%) 0.3 % 0.0-5.0 NUCLEATED RBC % (test code=NRBC%) 0.0 % 0-0 NEUTROPHIL # (test code=NT#) 3.97 K/mm3 1.8-7.7 IMMATURE GRANULOCYTE # (test code=IG#) 0.02 x10 3/uL 0-0.03 LYMPHOCYTE # (test code=LY#) 1.39 K/mm3 1.0-5.0 MONOCYTE # (test code=MO#) 0.71 K/mm3 0-0.8 EOSINOPHIL # (test code=EO#) 0.06 K/mm3 0.0-0.5 BASOPHIL # (test code=BA#) 0.04 K/mm3 0.0-0.2 NUCLEATED RBC # (test code=NRBC#) 0.00 K/mm3 0.0-0.1 MANUAL DIFF REQUIRED (test code=MDIFF) YES STAIN ACCEPTABILITY (test code=STN ACCEPTABLE) TOTAL CELLS COUNTED (test code=TCC) #CELLS SEGMENTED NEUTROPHILS (test code=SEG) % 39-69 LYMPHOCYTE (test code=LYMPH) % 25-55 MONOCYTE (test code=MON) % 0-10 EOSINOPHIL (test code=EOS) % 0.0-5.0 CABOT RINGS (test code=CAB) MORPHOLOGY COMMENT (test code=MOC) PLATELET ESTIMATE (test code=PLTEST) PLATELET MORPHOLOGY (test code=PLTMORPH) CBC W/MANUAL [id number] 05:26:00* Test Item Value Reference Range Comments WHITE BLOOD CELL (test code=WBC) 6.2 K/mm3 4.5-12.5 RED BLOOD CELL (test code=RBC) 4.10 mill/mm3 4.0-5.8 HEMOGLOBIN (test code=HGB) 12.9 gram/dL 13.0-17.5 RESULT VERIFIED BY REPEAT ANALYSIS HEMATOCRIT (test code=HCT) 39.0 % 42.0-52.0 MEAN CELL VOLUME (test code=MCV) 95.1 fL 80-98 MEAN CELL HGB (test code=MCH) 31.5 picogram 27.0-33.0 MEAN CELL HGB CONCETRATION (test code=MCHC) 33.1 gram/dL 33.0-36.0 RED CELL DISTRIBUTION WIDTH (test code=RDW) 15.1 % 11.6-16.2 RED CELL DISTRIBUTION WIDTH SD (test code=RDW-SD) 52.6 fL 37.0-51.0 PLATELET COUNT (test code=PLT) 150 K/mm3 150-450 MEAN PLATELET VOLUME (test code=MPV) 11.5 fL 6.7-11.0 IMMATURE GRANULOCYTE % (test code=IG%) 0.3 % 0.0-5.0 NUCLEATED RBC % (test code=NRBC%) 0.0 % 0-0 NEUTROPHIL # (test code=NT#) 3.97 K/mm3 1.8-7.7 IMMATURE GRANULOCYTE # (test code=IG#) 0.02 x10 3/uL 0-0.03 LYMPHOCYTE # (test code=LY#) 1.39 K/mm3 1.0-5.0 MONOCYTE # (test code=MO#) 0.71 K/mm3 0-0.8 EOSINOPHIL # (test code=EO#) 0.06 K/mm3 0.0-0.5 BASOPHIL # (test code=BA#) 0.04 K/mm3 0.0-0.2 NUCLEATED RBC # (test code=NRBC#) 0.00 K/mm3 0.0-0.1 MANUAL DIFF REQUIRED (test code=MDIFF) YES STAIN ACCEPTABILITY (test code=STN ACCEPTABLE) TOTAL CELLS COUNTED (test code=TCC) #CELLS SEGMENTED NEUTROPHILS (test code=SEG) % 39-69 LYMPHOCYTE (test code=LYMPH) % 25-55 MONOCYTE (test code=MON) % 0-10 EOSINOPHIL (test code=EOS) % 0.0-5.0 MORPHOLOGY COMMENT (test code=MOC) PLATELET ESTIMATE (test code=PLTEST) PLATELET MORPHOLOGY (test code=PLTMORPH) CBC W/MANUAL [id number] 05:26:00* Test Item Value Reference Range Comments WHITE BLOOD CELL (test code=WBC) 6.2 K/mm3 4.5-12.5 RED BLOOD CELL (test code=RBC) 4.10 mill/mm3 4.0-5.8 HEMOGLOBIN (test code=HGB) 12.9 gram/dL 13.0-17.5 RESULT VERIFIED BY REPEAT ANALYSIS HEMATOCRIT (test code=HCT) 39.0 % 42.0-52.0 MEAN CELL VOLUME (test code=MCV) 95.1 fL 80-98 MEAN CELL HGB (test code=MCH) 31.5 picogram 27.0-33.0 MEAN CELL HGB CONCETRATION (test code=MCHC) 33.1 gram/dL 33.0-36.0 RED CELL DISTRIBUTION WIDTH (test code=RDW) 15.1 % 11.6-16.2 RED CELL DISTRIBUTION WIDTH SD (test code=RDW-SD) 52.6 fL 37.0-51.0 PLATELET COUNT (test code=PLT) 150 K/mm3 150-450 MEAN PLATELET VOLUME (test code=MPV) 11.5 fL 6.7-11.0 IMMATURE GRANULOCYTE % (test code=IG%) 0.3 % 0.0-5.0 NUCLEATED RBC % (test code=NRBC%) 0.0 % 0-0 NEUTROPHIL # (test code=NT#) 3.97 K/mm3 1.8-7.7 IMMATURE GRANULOCYTE # (test code=IG#) 0.02 x10 3/uL 0-0.03 LYMPHOCYTE # (test code=LY#) 1.39 K/mm3 1.0-5.0 MONOCYTE # (test code=MO#) 0.71 K/mm3 0-0.8 EOSINOPHIL # (test code=EO#) 0.06 K/mm3 0.0-0.5 BASOPHIL # (test code=BA#) 0.04 K/mm3 0.0-0.2 NUCLEATED RBC # (test code=NRBC#) 0.00 K/mm3 0.0-0.1 MANUAL DIFF REQUIRED (test code=MDIFF) YES STAIN ACCEPTABILITY (test code=STN ACCEPTABLE) TOTAL CELLS COUNTED (test code=TCC) #CELLS SEGMENTED NEUTROPHILS (test code=SEG) % 39-69 LYMPHOCYTE (test code=LYMPH) % 25-55 MONOCYTE (test code=MON) % 0-10 MORPHOLOGY COMMENT (test code=MOC) PLATELET ESTIMATE (test code=PLTEST) PLATELET MORPHOLOGY (test code=PLTMORPH) BASIC METABOLIC [id number] 05:25:00* Test Item Value Reference Range Comments SODIUM (test code=NA) 149 mmol/L 136-145 POTASSIUM (test code=K) 4.1 mmol/L 3.5-5.1 CHLORIDE (test code=CL) 124.0 mmol/L 98-107 CARBON DIOXIDE (test code=CO2) 17.0 mmol/L 21-32 ANION GAP (test code=GAP) 12.1 10-20 GLUCOSE (test code=GLU) 84 mg/dL 74-106 BLOOD UREA NITROGEN (test code=BUN) 13 mg/dL 7-18 GLOMERULAR FILTRATION RATE (test code=GFR) > 60 mL/min >=60 Estimated GFR by using Modified MDRD formula.Chronic kidney disease is defined as either kidney damageor GFR <60 mL/min/1.73 m2 for >3 months. CREATININE (test code=CREAT) 1.00 mg/dL 0.7-1.3 BUN/CREATININE RATIO (test code=BUN/CREA) 12.9 10-20 CALCIUM (test code=CA) 7.9 mg/dL 8.5-10.1 [id number] 05:25:00* Test Item Value Reference Range Comments PHOSPHORUS (test code=PHOS) 3.3 mg/dL 2.5-4.9 [id number] 05:25:00* Test Item Value Reference Range Comments MAGNESIUM (test code=MAG) 1.3 mg/dL 1.8-2.4 FOLIC [id number] 05:25:00* Test Item Value Reference Range Comments FOLIC ACID (test code=FOL) 8.1 ng/mL 3.10-17.50 CBC W/MANUAL [id number] 05:25:00* Test Item Value Reference Range Comments WHITE BLOOD CELL (test code=WBC) 6.2 K/mm3 4.5-12.5 RED BLOOD CELL (test code=RBC) 4.10 mill/mm3 4.0-5.8 HEMOGLOBIN (test code=HGB) 12.9 gram/dL 13.0-17.5 RESULT VERIFIED BY REPEAT ANALYSIS HEMATOCRIT (test code=HCT) 39.0 % 42.0-52.0 MEAN CELL VOLUME (test code=MCV) 95.1 fL 80-98 MEAN CELL HGB (test code=MCH) 31.5 picogram 27.0-33.0 MEAN CELL HGB CONCETRATION (test code=MCHC) 33.1 gram/dL 33.0-36.0 RED CELL DISTRIBUTION WIDTH (test code=RDW) 15.1 % 11.6-16.2 RED CELL DISTRIBUTION WIDTH SD (test code=RDW-SD) 52.6 fL 37.0-51.0 PLATELET COUNT (test code=PLT) 150 K/mm3 150-450 MEAN PLATELET VOLUME (test code=MPV) 11.5 fL 6.7-11.0 IMMATURE GRANULOCYTE % (test code=IG%) 0.3 % 0.0-5.0 NUCLEATED RBC % (test code=NRBC%) 0.0 % 0-0 NEUTROPHIL # (test code=NT#) 3.97 K/mm3 1.8-7.7 IMMATURE GRANULOCYTE # (test code=IG#) 0.02 x10 3/uL 0-0.03 LYMPHOCYTE # (test code=LY#) 1.39 K/mm3 1.0-5.0 MONOCYTE # (test code=MO#) 0.71 K/mm3 0-0.8 EOSINOPHIL # (test code=EO#) 0.06 K/mm3 0.0-0.5 BASOPHIL # (test code=BA#) 0.04 K/mm3 0.0-0.2 NUCLEATED RBC # (test code=NRBC#) 0.00 K/mm3 0.0-0.1 MANUAL DIFF REQUIRED (test code=MDIFF) YES STAIN ACCEPTABILITY (test code=STN ACCEPTABLE) TOTAL CELLS COUNTED (test code=TCC) #CELLS SEGMENTED NEUTROPHILS (test code=SEG) % 39-69 LYMPHOCYTE (test code=LYMPH) % 25-55 MONOCYTE (test code=MON) % 0-10 EOSINOPHIL (test code=EOS) % 0.0-5.0 CABOT RINGS (test code=CAB) MORPHOLOGY COMMENT (test code=MOC) PLATELET ESTIMATE (test code=PLTEST) PLATELET MORPHOLOGY (test code=PLTMORPH) CBC W/MANUAL [id number] 05:25:00* Test Item Value Reference Range Comments WHITE BLOOD CELL (test code=WBC) 6.2 K/mm3 4.5-12.5 RED BLOOD CELL (test code=RBC) 4.10 mill/mm3 4.0-5.8 HEMOGLOBIN (test code=HGB) 12.9 gram/dL 13.0-17.5 RESULT VERIFIED BY REPEAT ANALYSIS HEMATOCRIT (test code=HCT) 39.0 % 42.0-52.0 MEAN CELL VOLUME (test code=MCV) 95.1 fL 80-98 MEAN CELL HGB (test code=MCH) 31.5 picogram 27.0-33.0 MEAN CELL HGB CONCETRATION (test code=MCHC) 33.1 gram/dL 33.0-36.0 RED CELL DISTRIBUTION WIDTH (test code=RDW) 15.1 % 11.6-16.2 RED CELL DISTRIBUTION WIDTH SD (test code=RDW-SD) 52.6 fL 37.0-51.0 PLATELET COUNT (test code=PLT) 150 K/mm3 150-450 MEAN PLATELET VOLUME (test code=MPV) 11.5 fL 6.7-11.0 IMMATURE GRANULOCYTE % (test code=IG%) 0.3 % 0.0-5.0 NUCLEATED RBC % (test code=NRBC%) 0.0 % 0-0 NEUTROPHIL # (test code=NT#) 3.97 K/mm3 1.8-7.7 IMMATURE GRANULOCYTE # (test code=IG#) 0.02 x10 3/uL 0-0.03 LYMPHOCYTE # (test code=LY#) 1.39 K/mm3 1.0-5.0 MONOCYTE # (test code=MO#) 0.71 K/mm3 0-0.8 EOSINOPHIL # (test code=EO#) 0.06 K/mm3 0.0-0.5 BASOPHIL # (test code=BA#) 0.04 K/mm3 0.0-0.2 NUCLEATED RBC # (test code=NRBC#) 0.00 K/mm3 0.0-0.1 MANUAL DIFF REQUIRED (test code=MDIFF) YES STAIN ACCEPTABILITY (test code=STN ACCEPTABLE) TOTAL CELLS COUNTED (test code=TCC) #CELLS SEGMENTED NEUTROPHILS (test code=SEG) % 39-69 LYMPHOCYTE (test code=LYMPH) % 25-55 MONOCYTE (test code=MON) % 0-10 EOSINOPHIL (test code=EOS) % 0.0-5.0 CABOT RINGS (test code=CAB) MORPHOLOGY COMMENT (test code=MOC) PLATELET ESTIMATE (test code=PLTEST) PLATELET MORPHOLOGY (test code=PLTMORPH) BASIC METABOLIC [id number] 05:04:00* Test Item Value Reference Range Comments SODIUM (test code=NA) 149 mmol/L 136-145 POTASSIUM (test code=K) 4.1 mmol/L 3.5-5.1 CHLORIDE (test code=CL) 124.0 mmol/L 98-107 CARBON DIOXIDE (test code=CO2) mmol/L 21-32 ANION GAP (test code=GAP) 10-20 GLUCOSE (test code=GLU) mg/dL 74-106 BLOOD UREA NITROGEN (test code=BUN) mg/dL 7-18 GLOMERULAR FILTRATION RATE (test code=GFR) mL/min >=60 CREATININE (test code=CREAT) mg/dL 0.7-1.3 BUN/CREATININE RATIO (test code=BUN/CREA) 10-20 CALCIUM (test code=CA) mg/dL 8.5-10.1 [id number] 05:04:00* Test Item Value Reference Range Comments PHOSPHORUS (test code=PHOS) mg/dL 2.5-4.9 [id number] 05:04:00* Test Item Value Reference Range Comments MAGNESIUM (test code=MAG) mg/dL 1.8-2.4 FOLIC [id number] 05:04:00* Test Item Value Reference Range Comments FOLIC ACID (test code=FOL) ng/mL 3.10-17.50 - XR ABD ACUTE [id number] 13:06:00 FAX: Jazzmine Coyle MD [phone] [place]: [address] St: ADM Name: Gloria [facility]LY JONES [facility] : [birth year] Age/S: 73/M [address] Unit #: [id number] Loc: [place] [address] Phys: Jazzmine Coyle MD Acct: [id number] Dis Date: Status: ADM IN PHONE #: [phone] Exam Date: 10/09/2018 1220 FAX #: [phone] Reason: abd pain EXAMS: CPT CODE: [id number] XR ABD ACUTE W/CHEST [id number] REASON FOR EXAM: abd pain Exam Order Date: 10/09/2018 10:11 AM Ordering M.DHawa: Mumtaz Coyle MD PROCEDURE: - XR ABD ACUTE W/CHEST COMPARISON: CT of the abdomen and pelvis earlier today at 12:03 PM FINDINGS: The lungs are clear. There is no pleural effusion or pneu mothorax. Pulmonary vascularity is within normal limits. Car diomediastinal silhouette is normal in size for technique. The mediastinal contours are within normal limits. Musculoskeletal structures are within normal limits. Gaseous distention of the transverse colon is present. There is also gas within the rectum and descending colon. The fluid distended loops of ascending colon and small bowel are not appreciat ed on this examination. IMPRESSION: No ac axel cardiopulmonary process. Gaseous distention of the transverse colon. There is also gas within the descending colon and rectum. These findings are better characterized on the previous CT of the abdomen and pelvis. at 1306 Reported and signed by: Joon Wick MD CC: Jazzmine Coyle MD Technologist: CINDY SALAZAR, RT(R); Aileen Hutchison RT(R) Trnscrd Date/Time/By: 10/09/2018 (2973) : By: [email or web address] Orig Print D/T: S: 10/09/2018 (2514) PAGE 1 Signed Report - CT ABD PELVIS [id number] 12:52:00 Name: CHARLY FLORES [facility] : 1945 Age/S: 73 / M [address] Unit #: [id number] Loc: [place] [address] Phys: Jazzmine Coyle MD Acct: [id number] Dis Date: Status: ADM IN PHONE #: [phone] Exam Date: 10/09/2018 1156 FAX #: [phone] Reason: PAIN, HEMATEMESIS EXAMS: CPT CODE: [id number] CT ABD PELVIS W/CONT [id number] REASON FOR EXAM: PAIN, HEMATEMESIS EXAM ORDER DATE: 10/09/2018 11:35 AM Ordering M.D.: Jazzmine Coyle MD PROCEDURE: - CT ABD PELVIS W/CONT contrast-enhanced axial CT images were acquired through the abdomen/pelvis at 5 mm intervals. Sagittal and coronal reformatted images were generated. Automated exposure control was utilized for this reduction. Phases of contrast: venous and delayed COMPARISON: Contrast-enhanced CT scan September 30, 2018 FINDINGS: Visualized thorax: There is subsegmental atelectasis in the lung bases. Hepatobiliary system: Normal Pancreas: Mild fatty replacement Spleen: Normal Adrenal glands: Normal Genitourinary system: There are multiple cysts in both kidneys. The largest cyst is located in the mid to inferior pole and measures 1.6 cm in diameter, similar to the prior exam. Bladder and prostate are within normal limits. Gastrointestinal tract and appendix: There is a copious amount of stool in the rectum. There is severe diverticulosis of the sigmoid colon with mural thickening but no pericolonic inflammatory changes. There is also a copious amount of stool and gas within the ascending and transverse and descending colon. Small bowel is distended up to 3 cm in diameter. In the distal small bowel (series 2 image 60) the small bowel caliber narrows to a diameter of 1 cm. The small bowel is distended but proximal and distal to this narrowed segment. Abdominal vascular structures: Atherosclerotic disease is scattered throughout the abdominal aorta and th e iliac arteries. PAGE 1 Signed Report (CONTINUED) Name: CHARLY FLORES [facility] : 1945 Age/S: 73 / M [address] Unit #: [id number] Loc: [place] [address] Phys: Jazzmine Coyle MD Acct: [id number] Dis Date: Status: ADM IN PHONE #: [phone] Exam Date: 10/09/2018 1156 FAX #: [phone] Reason: PAIN, HEMATEMESIS EXAMS: CPT CODE: [id number] CT ABD PELVIS W/CONT 23939 < Continued> Peritoneum and retroperitoneum: No free fluid or free air. No omental or mesenteric masses. No abnormal lymph nodes. Musculoskeletal structures and abdominal wall: Degenerative changes are scattered throughout the spine. Bilateral L5 pars defects are present and there is grade 2 anterolisthesis of L5-S1. There is also retrolisthesis of L2-L3 by distance of 6 mm and marked disc degeneration at L2-L3. Disc degeneration is also present at L4-L5. Bilateral inguinal hernias are present and contains both fat and fluid. IMPRESSION: Multiple mildly distended loops of small bowel measuring up to 2.4 cm with a segment of narrowed small bowel distally. Distal to this narrowed segment, the small bowel is distended up to 2.5 cm and there is a copious amount of stool and gas throughout the colon. These findings may represent a combination of low-grade small bowel obstruction and ileus. Diverticulosis of the sigmoid colon with mural thickening which is likely sequela of prior inflammatory episodes. No pericolonic fat stranding to suggest acute inflammation however. at 1252 Reported and signed by: Joon Wick MD CC: Jazzmine Coyle MD Technologist:Pal Lawton RT(R),(MR),(CT) CTDI: DLP: Trnscb Date/Time: 10/09/2018 (6244) [email or web address] Orig Print D/T: S: 10/09/2018 (8846) PAGE 2 Signed Report BASIC METABOLIC [id number] 10:56:00* Test Item Value Reference Range Comments SODIUM (test code=NA) 145 mmol/L 136-145 POTASSIUM (test code=K) 2.9 mmol/L 3.5-5.1 Results called to by [email or web address] 10/09/18 1056Critical results verified and read back by Nurse? Y CHLORIDE (test code=CL) 114.0 mmol/L 98-107 CARBON DIOXIDE (test code=CO2) 19.0 mmol/L 21-32 ANION GAP (test code=GAP) 14.9 10-20 GLUCOSE (test code=GLU) 121 mg/dL 74-106 BLOOD UREA NITROGEN (test code=BUN) 7 mg/dL 7-18 GLOMERULAR FILTRATION RATE (test code=GFR) > 60 mL/min >=60 Estimated GFR by using Modified MDRD formula.Chronic kidney disease is defined as either kidney damageor GFR <60 mL/min/1.73 m2 for >3 months. CREATININE (test code=CREAT) 1.00 mg/dL 0.7-1.3 BUN/CREATININE RATIO (test code=BUN/CREA) 6.7 10-20 CALCIUM (test code=CA) 9.0 mg/dL 8.5-10.1 HEPATIC FUNCTION [id number] 10:56:00* Test Item Value Reference Range Comments TOTAL PROTEIN (test code=PROT) 7.0 gram/dL 6.4-8.2 ALBUMIN (test code=ALB) 3.2 g/dL 3.4-5.0 GLOBULIN (test code=GLOB) 3.8 gram/dL 2.7-4.2 ALBUMIN/GLOBULIN RATIO (test code=A/G) 0.8 0.75-1.50 BILIRUBIN TOTAL (test code=BILT) 1.10 mg/dL 0.0-1.0 BILIRUBIN DIRECT (test code=BILD) 0.34 mg/dL 0.0-0.20 SGOT/AST (test code=AST) 39 IUnit/L 15-37 SGPT/ALT (test code=ALT) 33 IUnit/L 12-78 ALKALINE PHOSPHATASE TOTAL (test code=ALKP) 74 IUnit/L 45-117 Note change in reference range due to change in reagent. [id number] 10:56:00* Test Item Value Reference Range Comments LIPASE (test code=LIP) 243 U/L 73.0-393.0 PROTHROMBIN [id number] 10:51:00* Test Item Value Reference Range Comments PROTHROMBIN TIME PATIENT (test code=PTP) 14.4 seconds 9.0-14.0 INTERNATIONAL NORMAL RATIO (test code=INR) 1.2 0.8-1.2 The therapeutic range for oral anticoagulant therapy formost indications is an international normalized ratio (INR)of between 2.0 and 3.0. The recommended therapeutic INRrange for various clinical situations is listed below: Clinical Situation INR range Pulmonary e mbolism treatment (2.0-3.0)Venous thrombosis treatmentVenous thrombosis prophylaxis (high risk surgery)Prevention of systemic embolism from: Acute myocardial infarction Valvular heart disease Atrial fibrillation Mechanical prosthetic heart valves (2.5-3.5) IS PATIENT ON ANTICOAGULANTS? NTHROMBOPLASTIN TIME [id number] 10:51:00* Test Item Value Reference Range Comments THROMBOPLASTIN TIME PARTIAL (test code=PTT) 31.6 seconds 25.0-36.5 IS PATIENT ON ANTICOAGULANTS? NCBC W/O [id number] 10:27:00* Test Item Value Reference Range Comments WHITE BLOOD CELL (test code=WBC) 8.5 K/mm3 4.5-12.5 RED BLOOD CELL (test code=RBC) 4.77 mill/mm3 4.0-5.8 HEMOGLOBIN (test code=HGB) 15.1 gram/dL 13.0-17.5 HEMATOCRIT (test code=HCT) 45.5 % 42.0-52.0 MEAN CELL VOLUME (test code=MCV) 95.4 fL 80-98 MEAN CELL HGB (test code=MCH) 31.7 picogram 27.0-33.0 MEAN CELL HGB CONCETRATION (test code=MCHC) 33.2 gram/dL 33.0-36.0 RED CELL DISTRIBUTION WIDTH (test code=RDW) 15.0 % 11.6-16.2 PLATELET COUNT (test code=PLT) 189 K/mm3 150-450 MEAN PLATELET VOLUME (test code=MPV) 10.6 fL 6.7-11.0 COLON [id number] 14:18:00 RUN DATE: 10/08/18 [facility] PAGE 1 RUN TIME: 1418 Specimen Inqui ry RUN USER: INTERFACE PATIENT: CHARLY FLORES ACCT #: V [id number] LOC: [place] U #: [id number] AGE/SX: 73/M ROOM: [facility] RE10/01/18[facility] DR: Brian Lowe MD : 46 BED: A DIS: STATUS: ADM IN TLOC: SPEC #: [id number] RECD: 10/07/18 STATUS: KALIA REQ #: [id number] LUIS FERNANDO: 10/06/181427 [place] DR: Mohamud Gonzalez MD ENTERED: 10/07/180095 SP TYPE: COLONBX OTHR DR: Tammy Story MD ORDERED: DON COPIES TO: Mohamud Gonzalez MD [address] [address] Tammy Ordaz MD [address] 1957 #[address] [place] [id number] PROCEDURES: DON (10/08/18-1158) LOIS SUES: ASCENDING COLON - RANDOM CLINICAL HISTORY COLLECTION DATE: 10/06/2018 ANEMIA, DIARRHEA POST-OP DIAGNOSIS: INTERNAL HEMORRHOID S, COLITIS COMMENT The requisition sheet and specimen container id entified the tissue source as "random ascending colon". Review of the operativ e report indicates the biopsy was taken from the transverse colon. The finding s show biopsies of colonic mucosa with increased inflammation in the lamina pro pria with extension of lymphocytes into the glandular epithelium. Focal acute inflammation and reactive epithelial change are present as well. Pronounced gl andular changes are not noted. The changes present could be seen with microsco pic colitis or a resolving infectious colitis. Features diagnostic of inflamma tory bowel disease are not identified. Clinical correlation is necessary. I ntradepartmental consultation: DMW FINAL DIAGNOSIS Random colon, biop sy: COLITIS WITH CHRONIC AND ACUTE COMPONENTS AND REACTIVE EPITHELIAL CHANGE, see comment NO DISCRETE AREAS OF MUCOSAL EROSION/ULCERATION CONTINUED ON NEXT PAGE RUN WICHO E: 10/08/18 [place] - Lab PAGE 2 RUN TIME: 1418 Specimen Inquiry RUN USER: INTERFACE SPEC #: [id number] PATIENT: CHARLY FLORES # [id number] (Continued) FINAL DIAGNOSIS (Continu ed) NO HYPERPLASTIC OR ADENOMATOUS CHANGE PRESENT NEGATIVE FOR MA JESUS RRB/jus D 97914 MACROSCOPIC The specimen is received in formalin, labeled with the patient's name, identified as "random a scending bx", and consists of multiple valderrama biopsy tissue measuring 1.0 x 0.4 x 0.1 cm, submitted in a single cassette. GROSS PERFORMED AT [facility] [address] [place] [address] [phone])[phone] MICROSCOPIC All of the stains, in cluding any controls performed, stain appropriately. MICROSCOPIC PERFORMED AT [facility] [address] [place] [address] [phone])[phone] PERFORMING SITE Diagnosis per formed at: [facility] KATIA Wade [address] [place] [address] [phone] Signed SIGNATURE ON FILE Ginger Christina MD 10/08/18 1418 EN D OF REPORT BASIC METABOLIC [id number] 04:33:00* Test Item Value Reference Range Comments SODIUM (test code=NA) 144 mmol/L 136-145 POTASSIUM (test code=K) 3.8 mmol/L 3.5-5.1 CHLORIDE (test code=CL) 120.0 mmol/L 98-107 CARBON DIOXIDE (test code=CO2) 17.0 mmol/L 21-32 ANION GAP (test code=GAP) 10.8 10-20 GLUCOSE (test code=GLU) 97 mg/dL 74-106 BLOOD UREA NITROGEN (test code=BUN) 3 mg/dL 7-18 GLOMERULAR FILTRATION RATE (test code=GFR) > 60 mL/min >=60 Estimated GFR by using Modified MDRD formula.Chronic kidney disease is defined as either kidney damageor GFR <60 mL/min/1.73 m2 for >3 months. CREATININE (test code=CREAT) 0.90 mg/dL 0.7-1.3 BUN/CREATININE RATIO (test code=BUN/CREA) 3.4 10-20 CALCIUM (test code=CA) 8.1 mg/dL 8.5-10.1 BASIC METABOLIC [id number] 04:31:00* Test Item Value Reference Range Comments SODIUM (test code=NA) 144 mmol/L 136-145 POTASSIUM (test code=K) 3.8 mmol/L 3.5-5.1 CHLORIDE (test code=CL) 120.0 mmol/L 98-107 CARBON DIOXIDE (test code=CO2) mmol/L 21-32 ANION GAP (test code=GAP) 10-20 GLUCOSE (test code=GLU) mg/dL 74-106 BLOOD UREA NITROGEN (test code=BUN) mg/dL 7-18 GLOMERULAR FILTRATION RATE (test code=GFR) mL/min >=60 CREATININE (test code=CREAT) mg/dL 0.7-1.3 BUN/CREATININE RATIO (test code=BUN/CREA) 10-20 CALCIUM (test code=CA) 8.1 mg/dL 8.5-10.1 BASIC METABOLIC [id number] 12:16:00* Test Item Value Reference Range Comments SODIUM (test code=NA) 146 mmol/L 136-145 POTASSIUM (test code=K) 3.6 mmol/L 3.5-5.1 CHLORIDE (test code=CL) 121.0 mmol/L 98-107 CARBON DIOXIDE (test code=CO2) 16.0 mmol/L 21-32 ANION GAP (test code=GAP) 12.6 10-20 GLUCOSE (test code=GLU) 96 mg/dL 74-106 BLOOD UREA NITROGEN (test code=BUN) 5 mg/dL 7-18 GLOMERULAR FILTRATION RATE (test code=GFR) > 60 mL/min >=60 Estimated GFR by using Modified MDRD formula.Chronic kidney disease is defined as either kidney damageor GFR <60 mL/min/1.73 m2 for >3 months. CREATININE (test code=CREAT) 0.80 mg/dL 0.7-1.3 BUN/CREATININE RATIO (test code=BUN/CREA) 6.4 10-20 CALCIUM (test code=CA) 8.6 mg/dL 8.5-10.1 BASIC METABOLIC [id number] 12:10:00* Test Item Value Reference Range Comments SODIUM (test code=NA) 146 mmol/L 136-145 POTASSIUM (test code=K) 3.6 mmol/L 3.5-5.1 CHLORIDE (test code=CL) 121.0 mmol/L 98-107 CARBON DIOXIDE (test code=CO2) mmol/L 21-32 ANION GAP (test code=GAP) 10-20 GLUCOSE (test code=GLU) mg/dL 74-106 BLOOD UREA NITROGEN (test code=BUN) mg/dL 7-18 GLOMERULAR FILTRATION RATE (test code=GFR) mL/min >=60 CREATININE (test code=CREAT) mg/dL 0.7-1.3 BUN/CREATININE RATIO (test code=BUN/CREA) 10-20 CALCIUM (test code=CA) mg/dL 8.5-10.1 CBC W/O [id number] 11:13:00* Test Item Value Reference Range Comments WHITE BLOOD CELL (test code=WBC) 6.3 K/mm3 4.5-12.5 RED BLOOD CELL (test code=RBC) 4.23 mill/mm3 4.0-5.8 HEMOGLOBIN (test code=HGB) 13.2 gram/dL 13.0-17.5 HEMATOCRIT (test code=HCT) 40.2 % 42.0-52.0 MEAN CELL VOLUME (test code=MCV) 95.0 fL 80-98 MEAN CELL HGB (test code=MCH) 31.2 picogram 27.0-33.0 MEAN CELL HGB CONCETRATION (test code=MCHC) 32.8 gram/dL 33.0-36.0 RED CELL DISTRIBUTION WIDTH (test code=RDW) 14.6 % 11.6-16.2 PLATELET COUNT (test code=PLT) 205 K/mm3 150-450 MEAN PLATELET VOLUME (test code=MPV) 11.2 fL 6.7-11.0 CBC W/O [id number] 11:09:00* Test Item Value Reference Range Comments WHITE BLOOD CELL (test code=WBC) K/mm3 4.5-12.5 RED BLOOD CELL (test code=RBC) mill/mm3 4.0-5.8 HEMOGLOBIN (test code=HGB) 13.2 gram/dL 13.0-17.5 HEMATOCRIT (test code=HCT) % 42.0-52.0 MEAN CELL VOLUME (test code=MCV) fL 80-98 MEAN CELL HGB (test code=MCH) picogram 27.0-33.0 MEAN CELL HGB CONCETRATION (test code=MCHC) gram/dL 33.0-36.0 RED CELL DISTRIBUTION WIDTH (test code=RDW) % 11.6-16.2 PLATELET COUNT (test code=PLT) K/mm3 150-450 MEAN PLATELET VOLUME (test code=MPV) fL 6.7-11.0 URINALYSIS [id number] 22:38:00* Test Item Value Reference Range Comments UA COLOR (test code=COLU) YELLOW YELLOW UA APPEARANCE (test code=APPU) CLEAR CLEAR UA GLUCOSE DIPSTICK (test code=DGLUU) NEGATIVE mg/dL NEGATIVE UA BILIRUBIN DIPSTICK (test code=BILU) NEGATIVE mg/dL NEGATIVE UA KETONE DIPSTICK (test code=KETU) NEGATIVE mg/dL NEGATIVE UA SPECIFIC GRAVITY (test code=SGU) >1.050 1.001-1.035 UA BLOOD DIPSTICK (test code=GRETA) Negative mg/dL NEGATIVE UA PH DIPSTICK (test code=GIANA) 5.5 5.0-8.0 UA PROTEIN DIPSTICK (test code=PROU) 10 (Trace) mg/dL NEGATIVE UA UROBILINIOGEN DIPSTICK (test code=URO) Normal mg/dL NEGATIVE UA NITRITE DIPSTICK (test code=JESSIE) NEGATIVE NEGATIVE UA LEUKOCYTE ESTERASE W REFLEX (test code=LEUUR) NEGATIVE Suzan/uL NEGATIVE UA WBC (test code=WBCU) 0-5 per HPF 0-5 UA RBC (test code=RBCU) 0-2 #/HPF 0-5 UA EPITHELIAL CELLS (test code=EPIU) None seen per HPF FEW UA BACTERIA (test code=BACU) NONE SEEN #/HPF NONE UA MUCUS (test code=MUCU) FEW #/LPF FEW Urine Source? Clean CatchLACTIC [id number] 15:05:00* Test Item Value Reference Range Comments LACTIC ACID (test code=LACT) 1.7 mmol/L 0.4-1.9 - CT ABD PELVIS [id number] 14:42:00 Name: CHARLY FLORES [facility] : 1945 Age/S: 73 / M [address] [facility] Unit #: [id number] Loc: [place] [address] Phys: Zoey Arredondo DO Acct: [id number] Dis Date: Status: REG ER PHONE #: [phone] Exam Date: 09/30/2018 1414 FAX #: [phone] Reason: CODE SEPSIS EXAMS: CPT CODE: [id number] CT ABD PELVIS W/CONT 61757 REASON FOR EXAM: CODE SEPSIS EXAM ORDER DATE: 09/30/2018 12:17 PM Ordering M.D.: Zoey Arredondo DO PROCEDURE: - CT ABD PELVIS W/CONT COMPARISON: FINDINGS: CT images of the abdomen and pelvis were obtained with IV and without oral contrast at 5mm. Dose modulation, iterative reconstruction, and/or weight based adjustment of the MA/KV was utilized to reduce the radiation dose to as low as reasonably achievable. Intravenous contrast: 100cc of Omnipaque 370. The liver, spleen, pancreas are grossly within normal limits. The gallbladder is unremarkable by CT 2 cm cyst in the inferior pole of the right kidney. The urinary bladder is unremarkable. Minimal diffuse fluid distention of small bowel loops and of the colon. The a ppendix is unremarkable. No evidence of free air or free fluid. IMPRESSION: Minimal fluid distention of small bowel loops and colon suggestive of ileus at 1442 Reported and signed by: Shankar Louis M.D. CC: Zoey Arredondo DO Technologi st:[place] RT(R),(MR),(CT) CTDI: DLP: Trnscb Date/Time: (0184) Nereyda Orig Print D/T: S: 09/30/2018 ( 4689) PAGE 1 Signed Report LACTIC [id number] 13:39:00* Test Item Value Reference Range Comments LACTIC ACID (test code=LACT) 2.8 mmol/L 0.4-1.9 Results called to [id number] by VHawaLABBRIONNA 09/30/18 1338Critical results verified and read back by Nurse? Y BASIC METABOLIC [id number] 13:34:00* Test Item Value Reference Range Comments SODIUM (test code=NA) 145 mmol/L 136-145 POTASSIUM (test code=K) 3.4 mmol/L 3.5-5.1 CHLORIDE (test code=CL) 114.0 mmol/L 98-107 CARBON DIOXIDE (test code=CO2) 20.0 mmol/L 21-32 ANION GAP (test code=GAP) 14.4 10-20 GLUCOSE (test code=GLU) 116 mg/dL 74-106 BLOOD UREA NITROGEN (test code=BUN) 7 mg/dL 7-18 GLOMERULAR FILTRATION RATE (test code=GFR) > 60 mL/min >=60 Estimated GFR by using Modified MDRD formula.Chronic kidney disease is defined as either kidney damageor GFR <60 mL/min/1.73 m2 for >3 months. CREATININE (test code=CREAT) 1.00 mg/dL 0.7-1.3 BUN/CREATININE RATIO (test code=BUN/CREA) 7.0 10-20 CALCIUM (test code=CA) 8.8 mg/dL 8.5-10.1 HEPATIC FUNCTION [id number] 13:34:00* Test Item Value Reference Range Comments TOTAL PROTEIN (test code=PROT) 7.0 gram/dL 6.4-8.2 ALBUMIN (test code=ALB) 3.2 g/dL 3.4-5.0 GLOBULIN (test code=GLOB) 3.8 gram/dL 2.7-4.2 ALBUMIN/GLOBULIN RATIO (test code=A/G) 0.8 0.75-1.50 BILIRUBIN TOTAL (test code=BILT) 0.90 mg/dL 0.0-1.0 BILIRUBIN DIRECT (test code=BILD) 0.17 mg/dL 0.0-0.20 SGOT/AST (test code=AST) 50 IUnit/L 15-37 SGPT/ALT (test code=ALT) 36 IUnit/L 12-78 ALKALINE PHOSPHATASE TOTAL (test code=ALKP) 69 IUnit/L 45-117 Note change in reference range due to change in reagent. [id number] 13:34:00* Test Item Value Reference Range Comments TROPONIN-I (test code=TROPI) <0.015 ng/mL 0-0.045 BASIC METABOLIC [id number] 13:23:00* Test Item Value Reference Range Comments SODIUM (test code=NA) 145 mmol/L 136-145 POTASSIUM (test code=K) 3.4 mmol/L 3.5-5.1 CHLORIDE (test code=CL) 114.0 mmol/L 98-107 CARBON DIOXIDE (test code=CO2) mmol/L 21-32 ANION GAP (test code=GAP) 10-20 GLUCOSE (test code=GLU) mg/dL 74-106 BLOOD UREA NITROGEN (test code=BUN) mg/dL 7-18 GLOMERULAR FILTRATION RATE (test code=GFR) mL/min >=60 CREATININE (test code=CREAT) mg/dL 0.7-1.3 BUN/CREATININE RATIO (test code=BUN/CREA) 10-20 CALCIUM (test code=CA) mg/dL 8.5-10.1 HEPATIC FUNCTION [id number] 13:23:00* Test Item Value Reference Range Comments TOTAL PROTEIN (test code=PROT) gram/dL 6.4-8.2 ALBUMIN (test code=ALB) g/dL 3.4-5.0 GLOBULIN (test code=GLOB) gram/dL 2.7-4.2 ALBUMIN/GLOBULIN RATIO (test code=A/G) 0.75-1.50 BILIRUBIN TOTAL (test code=BILT) mg/dL 0.0-1.0 BILIRUBIN DIRECT (test code=BILD) mg/dL 0.0-0.20 SGOT/AST (test code=AST) IUnit/L 15-37 SGPT/ALT (test code=ALT) IUnit/L 12-78 ALKALINE PHOSPHATASE TOTAL (test code=ALKP) IUnit/L 45-117 [id number] 13:23:00* Test Item Value Reference Range Comments TROPONIN-I (test code=TROPI) ng/mL 0-0.045 - XR CHEST 1 [id number] 13:19:00 FAX: Zoey Arredondo DO [place]: B St: REG Name: CHARLY GONSALVES [facility] : [birth year] Age/S: 73/M [address] Unit #: [id number] Loc: ROSI [place] [address] Phys: Zoey Arredondo DO Acct: [id number] Dis Date: Status: REG ER PHONE #: [phone] Exam Date: 09/30/2018 1230 FAX #: [phone] Reason: CODE SEPSIS EXAMS: CPT CODE: [id number] XR CHEST 1 V 72961 REASON FOR EXAM: CODE SEPSIS Exam Order Date: 09/30/2018 12:17 PM Ordering M.Gulshan.: Zoey Arredondo DO PROCEDURE: - XR CHEST 1 V COMP ARISON: Frontal chest radiograph September 27, 2018 FINDINGS: The lungs are clear. There is no pleural effusion or pneumothorax. Pulmon cuong vascularity is within normal limits. Cardiomediastinal silhoue tte is normal in size for technique. Mild tortuosity of the thoracic aorta is unchanged. Musculoskeletal structures are within normal limits. The visualized upper abdomen is within normal limits. IMPRESSION: No acute cardiopulmonary process. Electron ically Signed by Joon Wick MD on 09/30/2018 at 3621 Re ported and signed by: Joon Wick MD CC: Zoey Arredondo DO Technologist: SNEHA MURRELL JR Trnscrd Date/Time/By: 09/30/2018 (8220) : By: [email or web address] Orig Print D/T: S: 09/30/2018 (2338) PAGE 1 Signed Report CBC W/AUTO DIFF 2018-09-30 12:33:00* Test Item Value Reference Range Comments WHITE BLOOD CELL (test code=WBC) 7.2 K/mm3 4.5-12.5 RED BLOOD CELL (test code=RBC) 4.79 mill/mm3 4.0-5.8 HEMOGLOBIN (test code=HGB) 14.9 gram/dL 13.0-17.5 HEMATOCRIT (test code=HCT) 46.7 % 42.0-52.0 MEAN CELL VOLUME (test code=MCV) 97.5 fL 80-98 MEAN CELL HGB (test code=MCH) 31.1 picogram 27.0-33.0 MEAN CELL HGB CONCETRATION (test code=MCHC) 31.9 gram/dL 33.0-36.0 RED CELL DISTRIBUTION WIDTH (test code=RDW) 14.5 % 11.6-16.2 RED CELL DISTRIBUTION WIDTH SD (test code=RDW-SD) 52.1 fL 37.0-51.0 PLATELET COUNT (test code=PLT) 209 K/mm3 150-450 MEAN PLATELET VOLUME (test code=MPV) 10.8 fL 6.7-11.0 NEUTROPHIL % (test code=NT%) 78.6 % 39.0-69.0 IMMATURE GRANULOCYTE % (test code=IG%) 0.8 % 0.0-5.0 LYMPHOCYTE % (test code=LY%) 10.6 % 25.0-55.0 MONOCYTE % (test code=MO%) 7.9 % 0.0-10.0 EOSINOPHIL % (test code=EO%) 1.5 % 0.0-5.0 BASOPHIL % (test code=BA%) 0.6 % 0.0-1.0 NUCLEATED RBC % (test code=NRBC%) 0.0 % 0-0 NEUTROPHIL # (test code=NT#) 5.66 K/mm3 1.8-7.7 IMMATURE GRANULOCYTE # (test code=IG#) 0.06 x10 3/uL 0-0.03 LYMPHOCYTE # (test code=LY#) 0.76 K/mm3 1.0-5.0 MONOCYTE # (test code=MO#) 0.57 K/mm3 0-0.8 EOSINOPHIL # (test code=EO#) 0.11 K/mm3 0.0-0.5 BASOPHIL # (test code=BA#) 0.04 K/mm3 0.0-0.2 NUCLEATED RBC # (test code=NRBC#) 0.00 K/mm3 0.0-0.1 MANUAL DIFF REQUIRED (test code=MDIFF) NO POC LACTIC [id number] 12:24:00* Test Item Value Reference Range Comments POC LACTIC ACID (test code=POCLAC) 2.92 MMOL/L 0.4-2.2 DUODENUM,[id number] 10:33:00 RUN DATE: 09/29/18 [place] [facility] PAGE 1 RUN TIME: 1033 Specimen Inqui ry RUN USER: INTERFACE PATIENT: CHARLY FLORES ACCT #: [id number] LOC: [place] U #: [id number] AGE/SX: 73/M ROOM: [facility] RE09/24/18REG DR: Pavan Spivey MD : 47 BED: 4 DIS: 09/26/18 STATUS: DIS IN TLOC: SPEC #: [id number] RECD: 09/25/18 STATUS: KALIA KRUGER #: [id number] LUIS FERNANDO: 09/25/[address] [place] [address]: Pavan Spivey MD ENTERED: 09/25/18144 SP TYPE: BX DUODEN OTHR DR: Doris Kyleigh isabella or Family Physician Mohamud Gonzalez MDORDERED: GROSS COPIES TO: Doris Primary or Family Physician Pavan Spivey MD [address] [place] [address]. [address] [address] Mohamud Gonzalez MD [address] [place], [place] [id number] PROCEDURES: GROSS (09/28/18-153) TISSUES: 1. DUODENUM, NOS - BX 2. ANTRUM - BX 3. FUNDUS - NODULE BX 4. FUNDUS - AND PYLORI BX 5. CECUM, NOS - POLYP HS 6. ASCENDING COLON - BX 7. ASCENDING COLON - POLYP BX 8. COLON, NOS - RANDOM BX CLINICAL HISTORY COLLECTION DATE: 09/25/2018 DIARRHEA, GATROENTENTIS POST-OP DIAGNOSIS:GASTRITIS, HIATAL HERNIAGASTRIC NODULE AND FUNDUS: INTERNAL HEMORRHOIDS DIVERTICULOSIS, COLON P[OLYP, COLITIS COMMENT Mixed inflammation is seen in biopsies from the colon. The inflammatory infiltrate p resent consists of lymphocytes, plasma cells, patchy increased neutrophils and eosinophils. Acute inflammatory cells extend into the glandular epithelium in s ome areas but well formed crypt abscess are not seen. No granulomas are identi fied. Scattered branched glands and slightly curved glands are present. Rach er, the glands CONTINUED ON NEXT PAGE ----- -------RUN DATE: 09/29/18 [place] [facility] PAGE 2 RUN TIME: 1033 Specimen Inquiry RUN USER: INTERFACE SPEC #: [id number] PATIENT: CHARLY FLORES #[id number] (Continued) COMMENT (Continued) are not markedly shortened. The inflammtory changes are more marked in the ascending colon biopsy compared to the random colon biopsies. A lthough the features are somewhat nonspecific, they are suggestive of an infect ious etiology. The mild glandular changes suggest some chronicity to the proce ss and inflammatory bowel disease is not entirely excluded. Clinical correlati on is necessary. Intradepartmental consultation: DMW. FINAL DIAGNOSI S Duodenum, biopsy: DUODENAL MUCOSA WITH MILD VILLOUS BLUNTING, MODERA TE MIXED INFLAMMATION AND REACTIVE EPITHELIAL CHANGE (PEPTIC DUODENITI S) NEGATIVE FOR MALIGNANCY Gastric antrum and body, biopsy: CHRONIC ACTIVE GASTRITIS WITH REACTIVE EPITHELIAL CHANGE NEGATIVE FOR INT ESTINAL METAPLASIA NO HELICOBACTER ORGANISMS IDENTIFIED BY GIEMSA STAIN IMMUNOPEROXIDASE STAIN FOR HELICOBACTER ORGANISMS PENDING, ADDENDUM REPORT TO FOLLOW NEGATIVE FOR MALIGNANCY Fundus nodule, biopsy: GASTRIC MUCOSA WITH MODERATE ACUTE INFLAMMATION, MILD CHRONIC IN FLAMMATION AND EDEMA NEGATIVE FOR INTESTINAL METAPLASIA NEGATIVE F OR MALIGNANCY Fundus and pylori's, biopsy: CHRONIC ACTIVE GASTRITIS WITH REACTIVE EPITHELIAL CHANGE NEGATIVE FOR INTESTINAL METAPLASIA NO HELICOBACTER ORGANISMS IDENTIFIED BY GIEMSA STAIN IMMUNOPEROXIDASE S TAIN FOR HELICOBACTER ORGANISMS PENDING, ADDENDUM REPORT TO FOLLOW NEGATIVE FOR MALIGNANCY Cecal polyp, hot snare: TUBULAR ADENOMA NEGATIVE FOR HIGH GRADE DYSPLASIA AND MALIGNANCY Ascending colon, b iopsy: ACUTE COLITIS WITH MILD CRYPTITIS, MILD GLANDULAR DISTORTION AND F OCAL MUCOSAL EROSION, see comment NEGATIVE FOR DYSPLASIA AND MAL IGNANCY Ascending colon polyp, biopsy: TUBULAR ADENOMA NEGAT BIBI FOR HIGH GRADE DYSPLASIA AND MALIGNANCY CO NTINUED ON NEXT PAGE RUN DATE: 09/29/18 [facility] RUN TIME: 1033 Specimen Inquiry RUN USER: INTERFACE SPEC #: [id number] PATIENT: CHARLY FLORES #[id number] (Continued) FINAL DIAGNOSIS (Continued) Random colon, biopsy: COLONIC MUCOSA WITH MODERATE CHRONIC INFLAMMATION, PATCHY ACUTE INFLAMMATION AND FIBROSIS, see comment MILD GLANDULAR DISTORTION AND JORDANA CTIVE EPITHELIAL CHANGE PRESENT NEGATIVE FOR MALIGNANCY RRB/sm D [id number], [id number], [id number] MACROSCOPIC The first specimen is r eceived in formalin, labeled with the patient's name, identified as "duodenum" , and consists of pink-valderrama biopsy tissue measuring 0.35 cm in aggregate, submi tted as (1). The second specimen is received in formalin, labeled with the patient's name, identified as "antrum and body", and consists of pink biopsy tissue measuring 0.35 cm in aggregate, submitted as (2) for H E and Giemsa sta ins. The third specimen is received in formalin, labeled with the patient' s name, identified as "fundus nodule", and consists of a single red-pink biops y tissue measuring 0.25 cm, submitted as (3). The fourth specimen is rec eived in formalin, labeled with the patient's name, identified as "fundus and poloris", and consists of pink biopsy tissue measuring 0.35 cm in aggregate, s ubmitted as (4) for H E and Giemsa stains. The fifth specimen is received in formalin, labeled with the patient's name, identified as "cecal polyp ", an d consists of a nodular red-pink biopsy tissue measuring 0.3 cm, bisected and submitted as (5). The sixth specimen is received in formalin, labeled with the patient's name, identified as "ascending colon", and consists of valderrama-pink biopsy tissue measuring 0.35 cm in aggregate, submitted as (6). The sev enth specimen is received in formalin, labeled with the patient's name, identi fied as "ascending colon polyp", and consists of valderrama-pink biopsy tissue measur ing 0.2 cm, submitted as (7). The eight specimen is received in formalin, labeled with the patient's name, identified as "random colon", and consists of multiple valderrama-pink biopsy tissue measuring 0.5 cm in aggregate, submitted as ( 8). GROSS PERFORMED AT [facility] [address] [facility] CONTIN[facility] D ON NEXT PAGE RUN DATE: 09/29/18 [facility] PAGE 4 RUN TIME: 1033 Specimen Inquiry RUN USER: INTERFACE SPEC #: [id number] [facility]: CHARLY FLORES #[id number] (Continued) MACROSCOPIC (Continued) [place] [address] (P)[phone] MICROSCOPIC All of the stains, including any controls performed, jamison mattson appropriately. MICROSCOPIC PERFORMED AT [facility] [address] [place] [address] (P) PERFORMING SITE Diagnosis performed at: [facility] [address] [facility] [place] [address] Signed SIGNATU RE ON FILE Edilson Christina MD 09/29/18 1033 - END OF REPORT DUODENUM,[id number] 10:33:00 RUN DATE: 10/02/18 [facility] PAGE 1 RUN TIME: 1336 Specimen Inqui ry RUN USER: INTERFACE PATIENT: CHARLY FLORES ACCT #: V [id number] LOC: FIONAROBERTA U #: [id number] AGE/SX: 73/M ROOM: MARIELLA RE09/24/18REG DR: Pavan Spivey MD : 47 BED: 4 DIS: 09/26/18 STATUS: DIS IN TLOC: SPEC #: [id number] RECD: 09/25/187305 STATUS: KALIA KRUGER #: [id number] LUIS FERNANDO: 09/25/[address] [place] [address]: Pavan Spivey MD ENTERED: 09/25/184345 SP TYPE: CHALO SHEEHAN DR: Doris mason or Family Physician Mohamud Gonzalez MDORDERED: GROSS COPIES TO: No Primary or Family Physici an Stephon Diaz,Pavan I MD [address] [place] [address]. #[place] [address] Mohamud Gonzalez MD [address] [place], [place] [id number] PROCEDURES: GROSS (09/28/18-1539) TISSUES: 1. DUODENUM, NOS - BX 2. ANTRUM - BX 3. FUNDUS - NODULE BX 4. FUNDUS - AND PYLORI BX 5. CECUM, NOS - POLYP HS 6. ASCENDING COLON - BX 7. ASCENDING COLON - POLYP BX 8. COLON, NOS - RANDOM BX ADDENDUM FINDINGS Addendum #1 Entered: 10/02/18 Immunoperox idase stains for helicobacter pylori were performed on specimens 2 and 4. The slides were reviewed at [facility]. The controls stain a ppropriately. No organisms are identified. The diagnosis remains otherwise unc hanged. Addendum Signed SIGNATURE ON FILE Edilson Christina MD 11/12 1336 CONTINUED ON NEXT PA GE RUN DATE: 10/02/18 [place] [facility] [facility] PAGE 2 RUN TIME: 1335 Specimen Inquiry RUN USER: INTERFACE SPEC #: [id number] PATIENT: CHARLY FLORES #[id number] (Continued) CLINICAL HISTORY COLLECTION DATE: 09/25/2018 DIARRHEA, GATROENTENTIS POST-OP DIAGNOSIS:GASTRITIS, HIATAL HERNIAGASTRIC NODULE AND FUNDUS: INTERNAL HEMORRH OIDS DIVERTICULOSIS, COLON P[OLYP, COLITIS COMMENT Mixed inflammat ion is seen in biopsies from the colon. The inflammatory infiltrate present co nsists of lymphocytes, plasma cells, patchy increased neutrophils and eosinophi ls. Acute inflammatory cells extend into the glandular epithelium in some area s but well formed crypt abscess are not seen. No granulomas are identified. S cattered branched glands and slightly curved glands are present. However, the g lands are not markedly shortened. The inflammtory changes are more marked in th e ascending colon biopsy compared to the random colon biopsies. Although the f eatures are somewhat nonspecific, they are suggestive of an infectious etiology . The mild glandular changes suggest some chronicity to the process and inflam matory bowel disease is not entirely excluded. Clinical correlation is necessa ry. Intradepartmental consultation: [facility]. FINAL DIAGNOSIS Duodenum , biopsy: DUODENAL MUCOSA WITH MILD VILLOUS BLUNTING, MODERATE MIXED INFL AMMATION AND REACTIVE EPITHELIAL CHANGE (PEPTIC DUODENITIS) NEG ATIVE FOR MALIGNANCY Gastric antrum and body, biopsy: CHRONIC ACTIV E GASTRITIS WITH REACTIVE EPITHELIAL CHANGE NEGATIVE FOR INTESTINAL METAP LASIA NO HELICOBACTER ORGANISMS IDENTIFIED BY GIEMSA STAIN IMMUNOP EROXIDASE STAIN FOR HELICOBACTER ORGANISMS PENDING, ADDENDUM REPORT TO FOLLOW NEGATIVE FOR MALIGNANCY Fundus nodule, biopsy: GASTRI C MUCOSA WITH MODERATE ACUTE INFLAMMATION, MILD CHRONIC INFLAMMATION AN D EDEMA NEGATIVE FOR INTESTINAL METAPLASIA NEGATIVE FOR MALIGNANCY Fundus and pylori's, biopsy: CHRONIC ACTIVE GASTRITIS WITH REACTIV E EPITHELIAL CHANGE NEGATIVE FOR INTESTINAL METAPLASIA NO HELICOBA CTER ORGANISMS IDENTIFIED BY GIEMSA STAIN IMMUNOPEROXIDASE STAIN FOR ZAIRE COBACTER ORGANISMS PENDING, ADDENDUM REPORT TO FOLLOW CONTINUED ON NEXT PAGE RUN DATE: 10/02/18 [place] [facility] PAGE 3 RUN TIME: 133 6 Specimen Inquiry RUN USER: INTER FACE SPEC #: [id number] PATIENT: CHARLY FLORES #[id number] (Con tinued) FINAL DIAGNOSIS (Continued) NEGATI VE FOR MALIGNANCY Cecal polyp, hot snare: TUBULAR ADENOMA NE GATIVE FOR HIGH GRADE DYSPLASIA AND MALIGNANCY Ascending colon, biopsy: ACUTE COLITIS WITH MILD CRYPTITIS, MILD GLANDULAR DISTORTION AND FOCAL MUCOSAL EROSION, see comment NEGATIVE FOR DYSPLASIA AND MALIGNANCY Ascending colon polyp, biopsy: TUBULAR ADENOMA NEGATIVE FOR H IGH GRADE DYSPLASIA AND MALIGNANCY Random colon, biopsy: COLONI C MUCOSA WITH MODERATE CHRONIC INFLAMMATION, PATCHY ACUTE INFLAMMATION AND FIBROSIS, see comment MILD GLANDULAR DISTORTION AND REACTIVE EPITHEL IAL CHANGE PRESENT NEGATIVE FOR MALIGNANCY RRB/sm D [id number] , [id number], [id number] MACROSCOPIC The first specimen is received in fo rmalin, labeled with the patient's name, identified as "duodenum", and consist s of pink-valderrama biopsy tissue measuring 0.35 cm in aggregate, submitted as (1). The second specimen is received in formalin, labeled with the patient's na me, identified as "antrum and body", and consists of pink biopsy tissue measur ing 0.35 cm in aggregate, submitted as (2) for H E and Giemsa stains. Th e third specimen is received in formalin, labeled with the patient's name, chris ntified as "fundus nodule", and consists of a single red-pink biopsy tissue me asuring 0.25 cm, submitted as (3). The fourth specimen is received in form zaida, labeled with the patient's name, identified as "fundus and poloris", and consists of pink biopsy tissue measuring 0.35 cm in aggregate, submitted as ( 4) for H E and Giemsa stains. The fifth specimen is received in formalin, labeled with the patient's name, identified as "cecal polyp ", and consists of a nodular red-pink biopsy tissue measuring 0.3 cm, bisected and submitted as (5). The sixth specimen is received in formalin, labeled with the patient' s name, CONTINUED ON NEXT PAGE RUN DATE: 10/02/18 [facility] PAGE 4 RUN TIME: 1336 Specimen Inquiry RUN USER: INTERFACE SPEC #: [id number] PATIENT: MARKCHARLY #[id number] (Continued) MACROSCOPIC ( Continued) identified as "ascending colon", and consists of valderrama-pink biopsy t issue measuring 0.35 cm in aggregate, submitted as (6). The seventh spec imen is received in formalin, labeled with the patient's name, identified as " ascending colon polyp", and consists of valderrama-pink biopsy tissue measuring 0.2 c m, submitted as (7). The eight specimen is received in formalin, labeled w ith the patient's name, identified as "random colon", and consists of multiple valderrama-pink biopsy tissue measuring 0.5 cm in aggregate, submitted as (8). GROSS PERFORMED AT [facility] [address] [place] [id number] [phone])[phone] [place] CROSCOPIC All of the stains, including any controls performed, stain appropri ately. MICROSCOPIC PERFORMED AT [facility] [address] [place] [address] [phone])[phone] PERFORMING SITE Diagnosis performed at: [facility] [address] [place] [address] Signed SIGNATURE ON FILE Edilson Christina MD 09/29/18 1033 END OF REPORT BASIC METABOLIC PANEL 2018-09-28 03:12:00* Test Item Value Reference Range Comments SODIUM (test code=NA) 146 mmol/L 136-145 POTASSIUM (test code=K) 3.6 mmol/L 3.5-5.1 CHLORIDE (test code=CL) 116.7 mmol/L 98-107 CARBON DIOXIDE (test code=CO2) 19.0 mmol/L 21-32 ANION GAP (test code=GAP) 13.9 10-20 GLUCOSE (test code=GLU) 87 mg/dL 74-106 BLOOD UREA NITROGEN (test code=BUN) 8 mg/dL 7-18 GLOMERULAR FILTRATION RATE (test code=GFR) > 60 mL/min >=60 Estimated GFR by using Modified MDRD formula.Chronic kidney disease is defined as either kidney damageor GFR <60 mL/min/1.73 m2 for >3 months. CREATININE (test code=CREAT) 0.70 mg/dL 0.7-1.3 BUN/CREATININE RATIO (test code=BUN/CREA) 11.4 10-20 CALCIUM (test code=CA) 7.9 mg/dL 8.5-10.1 CBC W/AUTO [id number] 02:19:00* Test Item Value Reference Range Comments WHITE BLOOD CELL (test code=WBC) 4.0 K/mm3 4.5-12.5 RED BLOOD CELL (test code=RBC) 3.90 mill/mm3 4.0-5.8 HEMOGLOBIN (test code=HGB) 12.0 gram/dL 13.0-17.5 RESULT VERIFIED BY REPEAT ANALYSIS HEMATOCRIT (test code=HCT) 36.8 % 42.0-52.0 MEAN CELL VOLUME (test code=MCV) 94.4 fL 80-98 MEAN CELL HGB (test code=MCH) 30.8 picogram 27.0-33.0 MEAN CELL HGB CONCETRATION (test code=MCHC) 32.6 gram/dL 33.0-36.0 RED CELL DISTRIBUTION WIDTH (test code=RDW) 14.6 % 11.6-16.2 RED CELL DISTRIBUTION WIDTH SD (test code=RDW-SD) 50.7 fL 37.0-51.0 PLATELET COUNT (test code=PLT) 189 K/mm3 150-450 RESULT VERIFIED BY REPEAT ANALYSIS MEAN PLATELET VOLUME (test code=MPV) 11.6 fL 6.7-11.0 NEUTROPHIL % (test code=NT%) 55.5 % 39.0-69.0 IMMATURE GRANULOCYTE % (test code=IG%) 0.8 % 0.0-5.0 LYMPHOCYTE % (test code=LY%) 28.3 % 25.0-55.0 MONOCYTE % (test code=MO%) 10.1 % 0.0-10.0 EOSINOPHIL % (test code=EO%) 4.8 % 0.0-5.0 BASOPHIL % (test code=BA%) 0.5 % 0.0-1.0 NUCLEATED RBC % (test code=NRBC%) 0.0 % 0-0 NEUTROPHIL # (test code=NT#) 2.20 K/mm3 1.8-7.7 IMMATURE GRANULOCYTE # (test code=IG#) 0.03 x10 3/uL 0-0.03 LYMPHOCYTE # (test code=LY#) 1.12 K/mm3 1.0-5.0 MONOCYTE # (test code=MO#) 0.40 K/mm3 0-0.8 EOSINOPHIL # (test code=EO#) 0.19 K/mm3 0.0-0.5 BASOPHIL # (test code=BA#) 0.02 K/mm3 0.0-0.2 NUCLEATED RBC # (test code=NRBC#) 0.00 K/mm3 0.0-0.1 MANUAL DIFF REQUIRED (test code=MDIFF) NO LACTIC [id number] 18:40:00* Test Item Value Reference Range Comments LACTIC ACID (test code=LACT) 1.5 mmol/L 0.4-1.9 LACTIC [id number] 15:23:00* Test Item Value Reference Range Comments LACTIC ACID (test code=LACT) 1.3 mmol/L 0.4-1.9 - CT ABD PELVIS [id number] 14:30:00 Name: CHARLY FLORES [facility] : 1945 Age/S: 73 / M [address] [facility] Unit #: [id number] Loc: [place] [address] Phys: Damon Portillo DO Acct: [id number] Dis Date: Status: REG ER PHONE #: [phone] Exam Date: 09/27/2018 1405 FAX #: [phone] Reason: lower abd pain EXAMS: CPT CODE: [id number] CT ABD PELVIS W/CONT 70771 HISTORY: lower abdominal pain TECHNIQUE: Immediate and delayed [address] images were obtained through the abdomen and pelvis after IV administration of 100 mL of Isovue-370 contrast. Sagittal and coronal reformatted images were generated. Automated exposure control for dose reduction. COMPAR RONNY: 09/23/18 FINDINGS: Bibasilar dependent subsegm ental atelectasis. Cardiomegaly. Liver, gallbladder, pancreas, spl een, adrenal glands are unremarkable. Bilateral renal cysts measuring up t o 1.8 cm. Limited evaluation the GI tract without oral contrast. S tomach, small bowel, and appendix are unremarkable. Fluid-filled ascending colon with mild wall thickening. Severe distal colon diverticulosis. No free air or free fluid. No lymphadenopathy. Aortoiliac athero sclerotic vascular calcification without aneurysm. Urinary bladder is unremarkable. Seminal vesicles and prostate gland are unremarkable. No pelvic free fluid. Fat-containing left inguinal hernia. Gra de 2 spondylolisthesis at L5-S1. Degenerative changes of the spine, sacroi liac joints, and hips. IMPRESSION: Fl uid-filled ascending colon with mild wall thickening. Correlate with cli nical evidence of colitis. Severe distal colon diverticulosis without evidence of acute diverticulitis. * * at 1430 Reported and signed by: Sita Villasenor D.O. PAGE 1 Signed Report (CONTINUED) Name: CHARLY FLORES [facility] : 1945 Age/S: 73 / M [address] Unit #: [id number] Loc: [place] [address] Phys: Damon Portillo DO Acct: [id number] Dis Date: Status: REG ER PHONE #: [phone] Exam Date: 2018 1405 FAX #: [phone] Reason: lower abd pain EXAMS: CPT CODE: [id number] CT ABD PELVIS W/CONT 741 77 <Continued> CC: Damon Portillo DO Technologist:Barbie Dobson RT(R)(CT) CTDI: DLP: Trnscb Date/Time: 09/27/2018 (1430) [email or web address] Orig Print D/T: S: 09/27/2018 (1065) PAGE 2 Signed Report URINALYSIS [id number] 13:58:00* Test Item Value Reference Range Comments UA COLOR (test code=COLU) Light-Yellow YELLOW UA APPEARANCE (test code=APPU) CLEAR CLEAR UA GLUCOSE DIPSTICK (test code=DGLUU) NEGATIVE mg/dL NEGATIVE UA BILIRUBIN DIPSTICK (test code=BILU) NEGATIVE mg/dL NEGATIVE UA KETONE DIPSTICK (test code=KETU) NEGATIVE mg/dL NEGATIVE UA SPECIFIC GRAVITY (test code=SGU) 1.009 1.001-1.035 UA BLOOD DIPSTICK (test code=GRETA) 0.03 mg/dL (Trace) mg/dL NEGATIVE UA PH DIPSTICK (test code=GIANA) 6.0 5.0-8.0 UA PROTEIN DIPSTICK (test code=PROU) NEGATIVE mg/dL NEGATIVE UA UROBILINIOGEN DIPSTICK (test code=URO) Normal mg/dL NEGATIVE UA NITRITE DIPSTICK (test code=JESSIE) NEGATIVE NEGATIVE UA LEUKOCYTE ESTERASE W REFLEX (test code=LEUUR) NEGATIVE Suzan/uL NEGATIVE UA WBC (test code=WBCU) 0-5 per HPF 0-5 UA RBC (test code=RBCU) 3-5 #/HPF 0-5 UA EPITHELIAL CELLS (test code=EPIU) FEW per HPF FEW UA BACTERIA (test code=BACU) FEW #/HPF NONE UA MUCUS (test code=MUCU) FEW #/LPF FEW Urine Source? Clean CatchLACTIC [id number] 13:41:00* Test Item Value Reference Range Comments LACTIC ACID (test code=LACT) 2.1 mmol/L 0.4-1.9 Results called to [id number] by NAY 09/27/18 1336Critical results verified and read back by Nurse? Y BASIC METABOLIC [id number] 13:41:00* Test Item Value Reference Range Comments SODIUM (test code=NA) 144 mmol/L 136-145 POTASSIUM (test code=K) 3.1 mmol/L 3.5-5.1 CHLORIDE (test code=CL) 112.0 mmol/L 98-107 CARBON DIOXIDE (test code=CO2) 21.0 mmol/L 21-32 ANION GAP (test code=GAP) 14.1 10-20 GLUCOSE (test code=GLU) 121 mg/dL 74-106 BLOOD UREA NITROGEN (test code=BUN) 10 mg/dL 7-18 GLOMERULAR FILTRATION RATE (test code=GFR) > 60 mL/min >=60 Estimated GFR by using Modified MDRD formula.Chronic kidney disease is defined as either kidney damageor GFR <60 mL/min/1.73 m2 for >3 months. CREATININE (test code=CREAT) 1.10 mg/dL 0.7-1.3 BUN/CREATININE RATIO (test code=BUN/CREA) 8.8 10-20 CALCIUM (test code=CA) 9.0 mg/dL 8.5-10.1 HEPATIC FUNCTION [id number] 13:41:00* Test Item Value Reference Range Comments TOTAL PROTEIN (test code=PROT) 7.3 gram/dL 6.4-8.2 ALBUMIN (test code=ALB) 3.1 g/dL 3.4-5.0 GLOBULIN (test code=GLOB) 4.2 gram/dL 2.7-4.2 ALBUMIN/GLOBULIN RATIO (test code=A/G) 0.7 0.75-1.50 BILIRUBIN TOTAL (test code=BILT) 0.70 mg/dL 0.0-1.0 BILIRUBIN DIRECT (test code=BILD) 0.21 mg/dL 0.0-0.20 SGOT/AST (test code=AST) 30 IUnit/L 15-37 SGPT/ALT (test code=ALT) 32 IUnit/L 12-78 ALKALINE PHOSPHATASE TOTAL (test code=ALKP) 74 IUnit/L 45-117 Note change in reference range due to change in reagent. [id number] 13:41:00* Test Item Value Reference Range Comments LIPASE (test code=LIP) 537 U/L 73.0-393.0 [id number] 13:41:00* Test Item Value Reference Range Comments TROPONIN-I (test code=TROPI) <0.015 ng/mL 0-0.045 BASIC METABOLIC [id number] 13:28:00* Test Item Value Reference Range Comments SODIUM (test code=NA) 144 mmol/L 136-145 POTASSIUM (test code=K) 3.1 mmol/L 3.5-5.1 CHLORIDE (test code=CL) 112.0 mmol/L 98-107 CARBON DIOXIDE (test code=CO2) mmol/L 21-32 ANION GAP (test code=GAP) 10-20 GLUCOSE (test code=GLU) mg/dL 74-106 BLOOD UREA NITROGEN (test code=BUN) mg/dL 7-18 GLOMERULAR FILTRATION RATE (test code=GFR) mL/min >=60 CREATININE (test code=CREAT) mg/dL 0.7-1.3 BUN/CREATININE RATIO (test code=BUN/CREA) 10-20 CALCIUM (test code=CA) mg/dL 8.5-10.1 HEPATIC FUNCTION [id number] 13:28:00* Test Item Value Reference Range Comments TOTAL PROTEIN (test code=PROT) gram/dL 6.4-8.2 ALBUMIN (test code=ALB) g/dL 3.4-5.0 GLOBULIN (test code=GLOB) gram/dL 2.7-4.2 ALBUMIN/GLOBULIN RATIO (test code=A/G) 0.75-1.50 BILIRUBIN TOTAL (test code=BILT) mg/dL 0.0-1.0 BILIRUBIN DIRECT (test code=BILD) mg/dL 0.0-0.20 SGOT/AST (test code=AST) IUnit/L 15-37 SGPT/ALT (test code=ALT) IUnit/L 12-78 ALKALINE PHOSPHATASE TOTAL (test code=ALKP) IUnit/L 45-117 [id number] 13:28:00* Test Item Value Reference Range Comments LIPASE (test code=LIP) U/L 73.0-393.0 [id number] 13:28:00* Test Item Value Reference Range Comments TROPONIN-I (test code=TROPI) ng/mL 0-0.045 CBC W/O [id number] 13:21:00* Test Item Value Reference Range Comments WHITE BLOOD CELL (test code=WBC) 7.7 K/mm3 4.5-12.5 RED BLOOD CELL (test code=RBC) 4.97 mill/mm3 4.0-5.8 HEMOGLOBIN (test code=HGB) 15.3 gram/dL 13.0-17.5 HEMATOCRIT (test code=HCT) 47.6 % 42.0-52.0 MEAN CELL VOLUME (test code=MCV) 95.8 fL 80-98 MEAN CELL HGB (test code=MCH) 30.8 picogram 27.0-33.0 MEAN CELL HGB CONCETRATION (test code=MCHC) 32.1 gram/dL 33.0-36.0 RED CELL DISTRIBUTION WIDTH (test code=RDW) 14.6 % 11.6-16.2 PLATELET COUNT (test code=PLT) 258 K/mm3 150-450 MEAN PLATELET VOLUME (test code=MPV) 10.4 fL 6.7-11.0 CBC W/O [id number] 13:20:00* Test Item Value Reference Range Comments WHITE BLOOD CELL (test code=WBC) K/mm3 4.5-12.5 RED BLOOD CELL (test code=RBC) mill/mm3 4.0-5.8 HEMOGLOBIN (test code=HGB) 15.3 gram/dL 13.0-17.5 HEMATOCRIT (test code=HCT) 47.6 % 42.0-52.0 MEAN CELL VOLUME (test code=MCV) fL 80-98 MEAN CELL HGB (test code=MCH) picogram 27.0-33.0 MEAN CELL HGB CONCETRATION (test code=MCHC) gram/dL 33.0-36.0 RED CELL DISTRIBUTION WIDTH (test code=RDW) % 11.6-16.2 PLATELET COUNT (test code=PLT) K/mm3 150-450 MEAN PLATELET VOLUME (test code=MPV) fL 6.7-11.0 - XR CHEST 1 [id number] 13:20:00 FAX: Damon Portillo DO [place]: B St: REG Name: CHARLY GONSALVES [facility] : [birth year] Age/S: 73/M [address] Unit #: [id number] Loc: [place] [address] Phys: Damon Portillo DO Acct: [id number] Dis Date: Status: REG ER PHONE #: [phone] Exam Date: 09/27/2018 1301 FAX #: [phone] Reason: CODE SEPSIS EXAMS: CPT CODE: [id number] XR CHEST 1 V 84331 HISTORY: CODE SEPSIS TECHNIQUE: AP chest x-ray COMPARISON: 09/23/18 FINDI NGS: No airspace consolidation or pleural effusion. Normal heart s ize. Mediastinal silhouette is unremarkable. Visualized osseous structures are grossly intact. IMPRESSION: No radi ographic evidence of acute cardiopulmonary process. Electronically S igned by Sita Villasenor D.O. on 09/27/2018 at 1320 Reported a nd signed by: Sita Villasenor D.O. CC: Damon Portillo DO Technologist: CHANTELLE NEGRON (R) Trnscrd Date/Time/By: 09/27/2018 (1320) : By: [email or web address] Orig Print D/T: S: 09/27/2018 (1204) PAGE 1 Signed Report POC LACTIC ACID 2018-09-27 13:13:00* Test Item Value Reference Range Comments POC LACTIC ACID (test code=POCLAC) 2.10 MMOL/L 0.4-2.2 AG GIARDIA [id number] 15:08:00* Test Item Value Reference Range Comments AG GIARDIA FECES (test code=GIARDAG) Negative Negative Performed At: [facility] [id number] Kyle L MD Ph:[phone] BASIC METABOLIC [id number] 02:03:00* Test Item Value Reference Range Comments SODIUM (test code=NA) 142 mmol/L 136-145 POTASSIUM (test code=K) 3.6 mmol/L 3.5-5.1 CHLORIDE (test code=CL) 115.0 mmol/L 98-107 CARBON DIOXIDE (test code=CO2) 22.0 mmol/L 21-32 ANION GAP (test code=GAP) 8.6 10-20 GLUCOSE (test code=GLU) 104 mg/dL 74-106 BLOOD UREA NITROGEN (test code=BUN) 8 mg/dL 7-18 GLOMERULAR FILTRATION RATE (test code=GFR) > 60 mL/min >=60 Estimated GFR by using Modified MDRD formula.Chronic kidney disease is defined as either kidney damageor GFR <60 mL/min/1.73 m2 for >3 months. CREATININE (test code=CREAT) 0.80 mg/dL 0.7-1.3 BUN/CREATININE RATIO (test code=BUN/CREA) 10.1 10-20 CALCIUM (test code=CA) 8.3 mg/dL 8.5-10.1 [id number] 02:03:00* Test Item Value Reference Range Comments MAGNESIUM (test code=MAG) 1.6 mg/dL 1.8-2.4 BASIC METABOLIC [id number] 02:02:00* Test Item Value Reference Range Comments SODIUM (test code=NA) 142 mmol/L 136-145 POTASSIUM (test code=K) 3.6 mmol/L 3.5-5.1 CHLORIDE (test code=CL) 115.0 mmol/L 98-107 CARBON DIOXIDE (test code=CO2) mmol/L 21-32 ANION GAP (test code=GAP) 10-20 GLUCOSE (test code=GLU) mg/dL 74-106 BLOOD UREA NITROGEN (test code=BUN) mg/dL 7-18 GLOMERULAR FILTRATION RATE (test code=GFR) mL/min >=60 CREATININE (test code=CREAT) mg/dL 0.7-1.3 BUN/CREATININE RATIO (test code=BUN/CREA) 10-20 CALCIUM (test code=CA) 8.3 mg/dL 8.5-10.1 [id number] 02:02:00* Test Item Value Reference Range Comments MAGNESIUM (test code=MAG) mg/dL 1.8-2.4 LIPID PROFILE (CORONARY RISK)2018-09-24 03:37:00* Test Item Value Reference Range Comments TRIGLYCERIDES (test code=TRIG) 66 mg/dL 20-150 CHOLESTEROL (test code=CHOL) 75 mg/dL 0-200 CHOLESTEROL/HDL RATIO (test code=CHOLHDL) 2.0 RATIO 0-4.9 RISK ASSOCIATED WITH CHOL/HDL RATIOS: Risk Male Female1/2 AVERAGE 3.43 3.27AVERAGE 4.97 4.442X AVERAGE 9.55 7.053X AVERAGE 23.39 11.04 REFERENCE VALUE IS RELATED TO RISK LEVELS ASRECOMMENDED BY THE DAY. HEART, LUNG, AND BLOOD INST. HDL CHOLESTEROL (test code=HDL) 27 mg/dL 40-60 LIPOPROTEIN LDL (test code=LDL) 53 mg/dL 100-129 Reference Interval: mg/dL mmol/L Optimal <100 <2.6Near/above optimal 100-129 2.6- 3.3Borderline High 130-159 3.4-4.1High 160-189 4.1-4.9Very High >=190 >=4.9=========This LDL result is a direct measurement.========= [id number] 03:37:00* Test Item Value Reference Range Comments LIPASE (test code=LIP) 576 U/L 73.0-393.0 THYROID PROFILE [id number] 03:37:00* Test Item Value Reference Range Comments T3 UPTAKE (test code=T3UP) 34.0 % 30.0-40.0 T4 (THYROXINE) (test code=T4) 9.4 ug/dL 4.5-13.9 T7 (FREE THYROXINE INDEX) (test code=T7) 3.19 FTI 1.3-5.1 THYROID STIMULATING HORMONE (test code=TSH) 1.580 uIU/mL 0.36-3.74 TSH REFERENCE RANGES: EUTHYROID: 0.35 - 4.3 mIU/mL HYPO : > 5.5 mIU/mL HYPER : < 0.35 mIU/mL - CT ABD PELVIS [id number] 19:40:00 Name: CHARLY FLORES [facility] : 1945 Age[facility]S: 73 [facility] M [address] [facility] [id number] Loc: [place] [address] Phys: Tawnya Morel MD Acct: [id number] Dis Date: Status: REG ER PHONE #: [phone] Exam Date: 09/23/2018 193 FAX #: [phone] Reason: vomiting, weakness EXAMS: CPT CODE: [id number] CT ABD PELVIS W/CONT 09657 REASON FOR EXAM: vomiting, weakness EXAM ORDER DATE: 09/23/2018 6:58 PM Ordering Jocelyn: Tawnya Morel MD PROCEDURE: - CT ABD PELVIS W/CONT COMPARISON: FINDINGS: CT images of the abdomen and pelvis were obtained with IV and without oral contrast at 5mm. Dose modulation, iterative reconstruction, and/or weight based adjustment of the MA/KV was utilized to reduce the radiation dose to as low as reasonably achievable. Intravenous contrast: 100cc of Omnipaque 370. The liver, spleen, pancreas are grossly within normal limits. The gallbladder is unremarkable by CT Small bilateral renal cysts with the largest cyst measures 2 cm in the midpole the right kidney The urinary bladder is unremarkable. The colon and stomach are within normal limits without evidence of obstruction. The appendix is unremark able. Diffuse sigmoid colon diverticulosis without evidence of acute dive rticulitis No evidence of free air or free fluid. IMPRESSION: Nonspecific minimal fluid distention of small bowel loops rebollar ggestive of ileus Electronically Signed by Jocelyn Louis on 9 at 1940 Reported and signed by: Shankar Louis M.D. CC: Tawnya Morel MD Technologist:Nancy patel RT(R) CTDI: DLP: Trnscb Date/Time: 09/23/2018 (194 0) MoniqueVTL Orig Print D/T: S: 09/23/2018 (194) KATIA GE 1 Signed Report URINALYSIS [id number] 19:22:00* Test Item Value Reference Range Comments UA COLOR (test code=COLU) YELLOW YELLOW UA APPEARANCE (test code=APPU) Cloudy CLEAR UA GLUCOSE DIPSTICK (test code=DGLUU) NEGATIVE mg/dL NEGATIVE UA BILIRUBIN DIPSTICK (test code=BILU) NEGATIVE mg/dL NEGATIVE UA KETONE DIPSTICK (test code=KETU) NEGATIVE mg/dL NEGATIVE UA SPECIFIC GRAVITY (test code=SGU) 1.015 1.001-1.035 UA BLOOD DIPSTICK (test code=GRETA) 1.0 mg/dL (3+) mg/dL NEGATIVE UA PH DIPSTICK (test code=GIANA) 5.5 5.0-8.0 UA PROTEIN DIPSTICK (test code=PROU) 30 (1+) mg/dL NEGATIVE UA UROBILINIOGEN DIPSTICK (test code=URO) Normal mg/dL NEGATIVE UA NITRITE DIPSTICK (test code=JESSIE) NEGATIVE NEGATIVE UA LEUKOCYTE ESTERASE W REFLEX (test code=LEUUR) NEGATIVE Suzan/uL NEGATIVE UA WBC (test code=WBCU) 6-10 per HPF 0-5 UA RBC (test code=RBCU) 25-50 #/HPF 0-5 UA EPITHELIAL CELLS (test code=EPIU) FEW per HPF FEW UA BACTERIA (test code=BACU) FEW #/HPF NONE UA HYALINE CAST (test code=HYALU) 3-5 #/LPF 0-5 UA MUCUS (test code=MUCU) FEW #/LPF FEW Urine Source? Clean CatchBASIC METABOLIC [id number] 16:02:00* Test Item Value Reference Range Comments SODIUM (test code=NA) 143 mmol/L 136-145 POTASSIUM (test code=K) 3.2 mmol/L 3.5-5.1 CHLORIDE (test code=CL) 113.0 mmol/L 98-107 CARBON DIOXIDE (test code=CO2) 21.0 mmol/L 21-32 ANION GAP (test code=GAP) 12.2 10-20 GLUCOSE (test code=GLU) 108 mg/dL 74-106 BLOOD UREA NITROGEN (test code=BUN) 10 mg/dL 7-18 GLOMERULAR FILTRATION RATE (test code=GFR) > 60 mL/min >=60 Estimated GFR by using Modified MDRD formula.Chronic kidney disease is defined as either kidney damageor GFR <60 mL/min/1.73 m2 for >3 months. CREATININE (test code=CREAT) 1.10 mg/dL 0.7-1.3 BUN/CREATININE RATIO (test code=BUN/CREA) 8.8 10-20 CALCIUM (test code=CA) 9.0 mg/dL 8.5-10.1 HEPATIC FUNCTION [id number] 16:02:00* Test Item Value Reference Range Comments TOTAL PROTEIN (test code=PROT) 7.5 gram/dL 6.4-8.2 ALBUMIN (test code=ALB) 3.4 g/dL 3.4-5.0 GLOBULIN (test code=GLOB) 4.1 gram/dL 2.7-4.2 ALBUMIN/GLOBULIN RATIO (test code=A/G) 0.8 0.75-1.50 BILIRUBIN TOTAL (test code=BILT) 0.50 mg/dL 0.0-1.0 BILIRUBIN DIRECT (test code=BILD) 0.17 mg/dL 0.0-0.20 SGOT/AST (test code=AST) 39 IUnit/L 15-37 SGPT/ALT (test code=ALT) 39 IUnit/L 12-78 ALKALINE PHOSPHATASE TOTAL (test code=ALKP) 77 IUnit/L 45-117 Note change in reference range due to change in reagent. CREATINE KINASE (CK)2018-09-23 16:02:00* Test Item Value Reference Range Comments CREATINE KINASE (CK) (test code=CK) 56 IUnit/L 26-208 [id number] 16:02:00* Test Item Value Reference Range Comments LIPASE (test code=LIP) 806 U/L 73.0-393.0 [id number] 16:02:00* Test Item Value Reference Range Comments MAGNESIUM (test code=MAG) 1.9 mg/dL 1.8-2.4 [id number] 16:02:00* Test Item Value Reference Range Comments TROPONIN-I (test code=TROPI) <0.015 ng/mL 0-0.045 BASIC METABOLIC [id number] 15:49:00* Test Item Value Reference Range Comments SODIUM (test code=NA) 143 mmol/L 136-145 POTASSIUM (test code=K) 3.2 mmol/L 3.5-5.1 CHLORIDE (test code=CL) 113.0 mmol/L 98-107 CARBON DIOXIDE (test code=CO2) mmol/L 21-32 ANION GAP (test code=GAP) 10-20 GLUCOSE (test code=GLU) mg/dL 74-106 BLOOD UREA NITROGEN (test code=BUN) mg/dL 7-18 GLOMERULAR FILTRATION RATE (test code=GFR) mL/min >=60 CREATININE (test code=CREAT) mg/dL 0.7-1.3 BUN/CREATININE RATIO (test code=BUN/CREA) 10-20 CALCIUM (test code=CA) mg/dL 8.5-10.1 HEPATIC FUNCTION [id number] 15:49:00* Test Item Value Reference Range Comments TOTAL PROTEIN (test code=PROT) gram/dL 6.4-8.2 ALBUMIN (test code=ALB) g/dL 3.4-5.0 GLOBULIN (test code=GLOB) gram/dL 2.7-4.2 ALBUMIN/GLOBULIN RATIO (test code=A/G) 0.75-1.50 BILIRUBIN TOTAL (test code=BILT) mg/dL 0.0-1.0 BILIRUBIN DIRECT (test code=BILD) mg/dL 0.0-0.20 SGOT/AST (test code=AST) IUnit/L 15-37 SGPT/ALT (test code=ALT) IUnit/L 12-78 ALKALINE PHOSPHATASE TOTAL (test code=ALKP) IUnit/L 45-117 CREATINE KINASE (CK)2018-09-23 15:49:00* Test Item Value Reference Range Comments CREATINE KINASE (CK) (test code=CK) IUnit/L 26-208 [id number] 15:49:00* Test Item Value Reference Range Comments LIPASE (test code=LIP) U/L 73.0-393.0 [id number] 15:49:00* Test Item Value Reference Range Comments MAGNESIUM (test code=MAG) mg/dL 1.8-2.4 [id number] 15:49:00* Test Item Value Reference Range Comments TROPONIN-I (test code=TROPI) ng/mL 0-0.045 CBC W/O [id number] 15:38:00* Test Item Value Reference Range Comments WHITE BLOOD CELL (test code=WBC) 5.9 K/mm3 4.5-12.5 RED BLOOD CELL (test code=RBC) 4.78 mill/mm3 4.0-5.8 HEMOGLOBIN (test code=HGB) 15.0 gram/dL 13.0-17.5 HEMATOCRIT (test code=HCT) 46.6 % 42.0-52.0 MEAN CELL VOLUME (test code=MCV) 97.5 fL 80-98 MEAN CELL HGB (test code=MCH) 31.4 picogram 27.0-33.0 MEAN CELL HGB CONCETRATION (test code=MCHC) 32.2 gram/dL 33.0-36.0 RED CELL DISTRIBUTION WIDTH (test code=RDW) 15.2 % 11.6-16.2 PLATELET COUNT (test code=PLT) 265 K/mm3 150-450 MEAN PLATELET VOLUME (test code=MPV) 10.4 fL 6.7-11.0 CBC W/O [id number] 15:36:00* Test Item Value Reference Range Comments WHITE BLOOD CELL (test code=WBC) K/mm3 4.5-12.5 RED BLOOD CELL (test code=RBC) mill/mm3 4.0-5.8 HEMOGLOBIN (test code=HGB) 15.0 gram/dL 13.0-17.5 HEMATOCRIT (test code=HCT) 46.6 % 42.0-52.0 MEAN CELL VOLUME (test code=MCV) fL 80-98 MEAN CELL HGB (test code=MCH) picogram 27.0-33.0 MEAN CELL HGB CONCETRATION (test code=MCHC) gram/dL 33.0-36.0 RED CELL DISTRIBUTION WIDTH (test code=RDW) % 11.6-16.2 PLATELET COUNT (test code=PLT) K/mm3 150-450 MEAN PLATELET VOLUME (test code=MPV) fL 6.7-11.0 - XR CHEST 1 [id number] 15:33:00 FAX: Tawnya Alicea [phone] [place]: [address]: REG Name: CHARLY GONSALVES [facility] : [birth year] Age/S: 73/M [address] Unit #: [id number] Loc: [place] [address] Phys: Tawnya Morel Acct: [id number] Dis Date: Status: REG ER PHONE #: [phone] Exam Date: 09/23/2018 1532 FAX #: [phone] Reason: weakness EXAMS: CPT CODE: [id number] XR CHEST 1 V [id number] REASON FOR EXAM: weakness EXAM ORDER DATE: 09/23/2018 3:16 PM Ordering Jocelyn: Shakeel Morel MD PROCEDURE: - XR CHEST 1 V COMP ARISON: FINDINGS: Portable AP frontal view of the chest obtained at 3:27 PM shows clear lungs without evidence of consolidation. There is n o evidence of effusion. The heart size is within normal limits. Pulm onary vasculatures are unremarkable. IMPRESSION: No active dise ase. at 1533 Reported and signed by: Shankar Louis M.D. CC: Tawnya Morel MD Technologist: Mendoza Hutchison RT(R) Trnscrd Date/Time/By: 09/24/19 19 (1533) : By: Nereyda Orig Print D/T: S: 09/23/2018 (0191) PAGE 1 Signed Report
[2018-10-29] MEDS ORDERED: SODIUM CHLORIDE 0.9% 1000ML 1,000 ML IV STA ×2 (10:48→14:25)
[2018-10-29] MEDS ORDERED: ONDANSETRON HCL INJ 2MG/ML 2ML 2 MG/ML VIAL IV NR (11:00)
[2018-10-29] MEDS ORDERED: PANTOPRAZOLE 40 MG 10ML VIAL IV NR (11:00)
--- NOTE | 2018-10-29 11:30 | NUR ---
PATIENT INCONTINENT OF STOOL. HIS ENTIRE SET OF CLOTHING (WHITE T-SHIRT, JUARES JOGGING PANTS, UNDERWEAR, JUARES SOCKS) WERE COVERED WITH STOOL. PER DAUGHTER BREANN, SHE STATED, "THROW IT AWAY". PATIENT DOES HAVE HIS JUARES JACKET AND PHONE WITH HIM
--- NOTE | 2018-10-29 12:41 | NUR ---
pt moved to room 9
--- NOTE | 2018-10-29 12:55 | NUR ---
straight cath inserted for ua via aseptic technique per md orders; urine output approx 30 cc; urine collected and sent to lab
[2018-10-29] MEDS ORDERED: SODIUM CHLORIDE 0.9% 1000ML 1,000 ML ONE ×2 (13:07→14:31)
[2018-10-29] MEDS ORDERED: ACETAMINOPHEN 1000 MG/100 ML IV NR (13:15)
[2018-10-29 13:16] LABS: OCCULT BLOOD STOOL POSITIVE (NEGATIVE)
[2018-10-29 13:26] LABS: BASOPHILS % 0.3 % (0.0-1.0); EOSINOPHILS % 0.4 % (0.0-6.0); HEMATOCRIT 41.3 % (38.2-49.6); HEMOGLOBIN 13.6 g/dL (14.0-18.0); LYMPHOCYTES # (AUTO) 0.3 (1.0-3.2); MEAN CORPUSCULAR HEMOGLOBIN 31.4 pg (28-32); MEAN CORPUSCULAR HGB CONC 32.9 g/dL (31-35); MEAN CORPUSCULAR VOLUME 95.4 fL (81-99); MONOCYTES # (AUTO) 0.6 (0.2-0.8); MONOCYTES % 8.2 % (4.4-11.3); NEUTROPHILS # (AUTO) 5.9 (2.1-6.9); NEUTROPHILS % 86.4 % (38.7-80.0); PLATELET COUNT 160 x10e3/uL (140-360); RED BLOOD COUNT 4.33 x10e6/uL (4.3-5.7); RED CELL DISTRIBUTION WIDTH 13.6 % (11.7-14.4)
--- NOTE | 2018-10-29 13:30 | Diagnostic Imaging Report ---
EXAMINATION: CHEST SINGLE (PORTABLE) INDICATION: Syncope COMPARISON: None FINDINGS: LINES/TUBES:EKG leads overlie the chest. LUNGS:The lungs are well-inflated. No focal consolidation or pulmonary edema. PLEURA:No pleural effusion or pneumothorax. MEDIASTINUM:The cardiomediastinal silhouette appears normal in size and shape. BONES/SOFT TISSUES:No acute osseous injury. ABDOMEN:No free air under the diaphragm. IMPRESSION: No focal pneumonia or pulmonary edema. Signed by: Edison Espinosa MD on 10/29/2018 1:26 PM
[2018-10-29 13:39] LABS: INR 1.25; PROTHROMBIN TIME 16.3 seconds (11.9-14.5)
[2018-10-29 13:40] LABS: PARTIAL THROMBOPLASTIN TIME 32.8 seconds (23.8-35.5)
[2018-10-29 13:48] LABS: ALANINE AMINOTRANSFERASE 22 IU/L (0-55); ALBUMIN 2.7 g/dL (3.5-5.0); ALBUMIN/GLOBULIN RATIO 0.9 (0.8-2.0); ALKALINE PHOSPHATASE 75 IU/L (40-150); ANION GAP 14.8 mmol/L (8-16); BLOOD UREA NITROGEN 12 mg/dL (7-26); BUN/CREATININE RATIO 11 (6-25); CALCIUM 8.5 mg/dL (8.4-10.2); CARBON DIOXIDE 19 mmol/L (22-29); CHLORIDE 109 mmol/L (98-107); CREATINE KINASE 32 IU/L (30-200); CREATININE, SERUM 1.14 mg/dL (0.72-1.25); EST GLOMERULAR FILTRATION RATE > 60 ML/MIN (60-); GLUCOSE 104 mg/dL (74-118); LIPASE 16 U/L (8-78); MAGNESIUM 1.4 MG/DL (1.3-2.1); POTASSIUM 3.8 mmol/L (3.5-5.1); SODIUM 139 mmol/L (136-145)
[2018-10-29 13:53] LABS: BILIRUBIN,URINE NEGATIVE (NEGATIVE); CLARITY,URINE CLEAR (CLEAR); COLOR,URINE YELLOW (YELLOW); KETONES,URINE NEGATIVE (NEGATIVE); LEUKOCYTE ESTERASE ,URINE NEGATIVE (NEGATIVE); NITRITE,URINE NEGATIVE (NEGATIVE); PROTEIN,URINE DIPSTICK NEGATIVE (NEGATIVE); URINE UROBILINOGEN 0.2 mg/dL (0.2 - 1)
[2018-10-29 13:55] LABS: B-TYPE NATRIURETIC PEPTIDE2 245.5 pg/mL (0-100)
[2018-10-29 14:14] LABS: BACTERIA,URINE FEW /HPF; EPITHELIAL CELLS,URINE FEW /LPF
[2018-10-29 14:14] LABS: C DIFFICILE TOXIN A&B AMP PROB NEGATIVE (NEGATIVE)
[2018-10-29] MEDS ORDERED: ONDANSETRON HCL INJ 2MG/ML 2ML 2 MG/ML VIAL IV PRN (14:45)
--- NOTE | 2018-10-29 15:00 | NUR ---
pt daughter signs consent for central line; culturalink used to translate for kat Ambriz and Dr Martini; pt and daughter given opportunity to ask questions and both acknowledge need for central line due to pt being hypotensive
[2018-10-29] MEDS: SODIUM CHLORIDE 0.9% 1000ML 1,000 ML IV SCH (15:25)
[2018-10-29] MEDS ORDERED: NOREPINEPHRINE INJ 4MG/4ML 8 MG in DEXTROSE 5% 250ML 250 ML IV SCH (15:30)
[2018-10-29] MEDS ORDERED: NOREPINEPHRINE 8 MG/D5W 250 ML 250 ML IV PRN (15:45)
--- NOTE | 2018-10-29 15:56 | Diagnostic Imaging Report ---
EXAMINATION: CHEST XRAY LINE PLACEMENT INDICATION: Line placement COMPARISON: Chest radiograph 10/29/2018 FINDINGS: LINES/TUBES:Interval placement of right IJ nontunneled central venous catheter terminating in the superior vena cava. EKG leads overlie the chest. LUNGS:The lungs are moderately inflated. Mild left basilar subsegmental atelectasis. PLEURA:No pleural effusion or pneumothorax. MEDIASTINUM:The cardiomediastinal silhouette appears unchanged in size and shape. BONES/SOFT TISSUES:No acute osseous injury. ABDOMEN:No free air under the diaphragm. IMPRESSION: Interval placement of right IJ nontunneled central venous catheter terminating in the superior vena cava. Signed by: Edison Espinosa MD on 10/29/2018 3:52 PM
[2018-10-29] MEDS: CEFEPIME 2 GM/NS 0.9% 100 ML 100 ML IV SCH (16:42)
[2018-10-29] MEDS: METRONIDAZOLE 500MG/NS 100ML 100 ML IV SCH ×2 (16:47→21:00)
--- NOTE | 2018-10-29 16:57 | NUR ---
dr walls at pt bedside
[2018-10-29] MEDS ORDERED: PANTOPRAZOLE 40 MG 10ML VIAL IV SCH (17:00)
--- NOTE | 2018-10-29 17:21 | Diagnostic Imaging Report ---
EXAM: CT Abdomen and Pelvis WITH intravenous contrast INDICATION: Abdominal pain, syncope COMPARISON: None. TECHNIQUE: Abdomen and pelvis were scanned utilizing a multidetector helical scanner from the lung base to the pubic symphysis after administration of IV contrast. Coronal and sagittal reformations were obtained. Routine protocol was performed. Scan was performed during portal venous phase. IV CONTRAST: 100mL of Isovue 370 ORAL CONTRAST: Water RADIATION DOSE: Total DLP: 642.3 mGy*cm Dose modulation, iterative reconstruction, and/or weight based adjustment of the mA/kV was utilized to reduce the radiation dose to as low as reasonably achievable. FINDINGS: LOWER THORAX: Bibasilar dependent subsegmental atelectasis. No focal consolidation. HEPATOBILIARY: No focal hepatic lesions. No biliary ductal dilatation. The gallbladder appears unremarkable. SPLEEN: No splenomegaly. PANCREAS: No focal masses or ductal dilatation. ADRENALS: No adrenal nodules. KIDNEYS/URETERS: No hydronephrosis, stones, or solid mass lesions. Bilateral subcentimeter renal cysts. PELVIC ORGANS/BLADDER: Prostate is mildly enlarged, measuring up to 4.7 cm with coarse internal calcifications. It appears unremarkable. PERITONEUM / RETROPERITONEUM: No free air or fluid. LYMPH NODES: No lymphadenopathy. VESSELS: Mild scattered atherosclerotic calcifications of the nonaneurysmal abdominal aorta and major branches. GI TRACT: Colonic diverticulosis with no CT evidence of diverticulitis. No abnormal bowel wall thickening. No bowel obstruction. Normal appendix. BONES AND SOFT TISSUES: No acute osseous injury. Degenerative changes of the visualized spine. Grade 1/2 anterolisthesis at L5-S1 with associated bilateral L5 pars interarticularis defects. Grade 1 retrolisthesis at L2-3. IMPRESSION: No acute findings in the abdomen or pelvis. Colonic diverticulosis with no CT evidence of diverticulitis. Lumbar spine degenerative changes most notably with grade 1/2 anterolisthesis at L5-S1 with associated bilateral L5 pars interarticularis defects. Signed by: Edison Espinosa MD on 10/29/2018 5:18 PM
[2018-10-29] MEDS: VANCOMYCIN 1GM/NS 250 ML 250 ML IV SCH (17:23)
[2018-10-29] MEDS ORDERED: XIFAXAN550 MG PO (17:29)
[2018-10-29] MEDS ORDERED: ONDANSETRON ODT8 MG PO (17:29)
[2018-10-29] MEDS ORDERED: BUDESONIDE EC3 MG PO (17:29)
[2018-10-29] MEDS ORDERED: DIPHENOXYLATE-1 EACH PO (17:29)
[2018-10-29] MEDS ORDERED: ACIDOPHILUS1 EAC1 PO (17:29)
--- NOTE | 2018-10-29 17:54 | Diagnostic Imaging Report ---
History: Syncope Comparison studies: None Technique: Axial images were obtained from the skull base to the vertex. Coronal and sagittal reconstructions obtained from the axial data. Dose modulation, iterative reconstruction, and/or weight based adjustment of the mA/kV was utilized to reduce the radiation dose to as low as reasonably achievable. Findings: Scalp/skull: No abnormalities. No fractures, blastic or lytic lesions. Extra-axial spaces: No masses. No fluid collections. Brain sulci: Appropriate for age. Ventricles: Normal in size and configuration. No hydrocephalus. Parenchyma: Cortical based hypodensity at the right orbital frontal gyrus with associated volume loss, related to remote insult. No other abnormal density. No masses, hemorrhage or acute cortical vascular insults. Sellar/suprasellar region: No abnormalities Craniocervical junction: Patent foramen magnum. No Chiari one malformation. Partially visualized opacification of the right maxillary sinus with periosteal thickening, likely related to chronic inflammation. IMPRESSION: No acute abnormalities . Signed by: DR Giovanny Webb M.D. on 10/29/2018 5:50 PM
--- NOTE | 2018-10-29 21:07 | NUR ---
Paged new consults, Dr. Hernandez, covered by Dr. Moss, and Dr. Piedra.
[2018-10-29 21:11] LABS: CREATINE KINASE 38 IU/L (30-200)
--- NOTE | 2018-10-29 21:11 | NUR ---
Dr. Alanis at pt bedside.
--- NOTE | 2018-10-29 23:49 | History and Physical ---
CHIEF COMPLAINT: Diarrhea. HISTORY OF PRESENT ILLNESS: This patient who is a 73-year-old male. The patient for the last six weeks or so after a trip, he has been in the hospital in [place] for 4 times with diarrhea and abdominal pain. No fever. No chills. The patient was admitted, started on antibiotic. He had a colonoscopy. He had CAT scans, all negative. He also had an MRA which was negative. The patient will be given antibiotic, but all his stool tests come back negative. Blood cultures are negative, and then switched to Questran and discharged home and he comes back again with nausea and vomiting. He has come here again with nausea, vomiting, and abdominal pain. The patient was seen in the emergency room. He is lying in bed comfortably. His is at the bedside. PAST MEDICAL HISTORY: Denies. PAST SURGICAL HISTORY: Denies. ALLERGIES: NKA. SOCIAL HISTORY: There is no smoking, drug abuse, or alcohol abuse. FAMILY HISTORY: Unremarkable. LABORATORY DATA: White count 6.83, hemoglobin of 13, and hematocrit of 41. His sodium 139, potassium 3.6, and creatinine 1.14. Lactic acid 24. BNP 246. Lipase is 16. CAT scan of the abdomen and pelvis was done, still pending. Chest x-ray was negative. PHYSICAL EXAMINATION: GENERAL: He is alert and oriented. He is having fever 101.9. HEENT: Not icteric. NECK: Supple. CHEST: Clear. HEART: No murmur. ABDOMEN: Soft. Bowel sounds present, no tenderness. EXTREMITIES: No edema. IMPRESSION: Recurrent abdominal pain and diarrhea, no clear source. Recommended to do colonoscopy, small intestine video workup, rule out Crohn, rule out ulcerative colitis. Obtain stools for O and P. Stools for AFB. We have checked him before for other stool pathogen, all came back negative including Escherichia coli. We will order blood cultures. We will follow. MD PARUL Costa/DIYA /[id number]
[2018-10-30] VITALS (14 sets, daily range): BP systolic 101–143; BP diastolic 61–84
[2018-10-30] MEDS: CEFEPIME 2 GM/NS 0.9% 100 ML 100 ML IV SCH (02:32)
[2018-10-30] MEDS: VANCOMYCIN 1GM/NS 250 ML 250 ML IV SCH (02:50)
--- NOTE | 2018-10-30 03:29 | History and Physical ---
This is GI CONSULT REFERRING PHYSICIAN: Mumtaz Martini MD. REASON FOR CONSULT: Nausea, vomiting, diarrhea, and profound hypotension. HISTORY OF PRESENTING ILLNESS: A 73 years old male with a history of hypertension, who is very well known to me from his admission in [place] last week. He got admitted there with recurrent bouts of nausea, vomiting, and several episodes of diarrhea every day for last one month. He has had a colonoscopy performed by my associate, Dr. Gonzalez, that showed some patchy colitis, random colon biopsies were negative for any microscopic colitis. However, there was a lymphocytic infiltration noted in lamina propria, suggestive of possible lymphocytic colitis. Based upon this biopsy result, the patient was started on budesonide, he took budesonide for few days while being in [facility]. This decreased the frequency of watery diarrhea to one or two a day. His stool was still not formed. It was also thought over that the patient might be having irritable bowel syndrome with diarrhea. Therefore, Xifaxan was also added. The patient's diarrhea almost resolved, he had one or two BM daily. After this, he was discharged from [facility] last week. Now he is coming to [facility] with one or two bouts of nausea and vomiting at home followed by one or two loose stools. His checked his blood pressure at home and he was noted to have a significant hypotension with systolic blood pressure in 80s. His decided to bring him to emergency room. Here, his blood pressure was noted 87/64 and he was tachycardiac with a heart rate of 101. Blood work revealed no significant electrolyte disbalance. Potassium level was noted normal and his creatinine was also 1.14, which is close to baseline. CT of the abdomen and pelvis with IV contrast showed no acute finding. He has colonic diverticulosis without any diverticulitis. The patient reports no associated abdominal pain. On further questioning, the patient's stated that he is not having any significant diarrhea at home, usually one or two loose stools a day. No associated fever or chills. He was taking budesonide and Xifaxan as prescribed when he was discharged from [facility]. REVIEW OF SYSTEMS: Twelve point system reviewed, symptomatology is limited to GI system. PAST MEDICAL HISTORY: Hypertension and recent chronic diarrhea. PAST SURGICAL HISTORY: Upper endoscopy and colonoscopy in [facility] a couple of weeks ago. FAMILY HISTORY: Noncontributory. SOCIAL HISTORY: No smoking, alcohol, or any illicit drug use. and lives with his . ALLERGIES: NO KNOWN DRUG ALLERGIES. HOME MEDICATION: Budesonide 3 mg three tablets daily, atropine/diphenoxylate one tablet twice daily, lactobacillus two capsules twice daily, Zofran 4 mg every 4 hours as needed, Xifaxan 550 mg twice daily, valsartan/hydrochlorothiazide one tablet daily. Inpatient medication: Currently getting vancomycin and metronidazole, as well as cefepime. He is also on norepinephrine as well. Urine culture and blood culture drawn. PHYSICAL EXAMINATION: VITAL SIGNS: Temperature 100.2, pulse 101, respirations 18. Blood pressure 87/64, this has gone to 91/64. GENERAL: Not in any acute distress. Mentating very well. HEENT: Oral mucosa is moist. Anicteric sclerae. CARDIOVASCULAR SYSTEM: S1, S2. Regular, but with 2/6 flow murmur. LUNGS: Bilaterally grossly clear. ABDOMEN: Soft, nondistended, nontender. No palpable mass or hernia. Bowel sounds slightly hyperactive. EXTREMITIES: Warm. No leg edema. LABORATORY DATA: Sodium 139, potassium 3.8, chloride 109, bicarb 19, BUN 12, creatinine 1.14. Liver enzymes normal. WBC 6.83, hemoglobin 13.6, hematocrit 41.3, MCV 95.4, and platelet count 160. PT 16.3 and INR 1.25. Urinalysis negative. Stool Clostridium difficile negative. Stool occult blood positive. Celiac serology is pending. CT of the abdomen and pelvis with IV contrast showed no acute finding in the abdomen or pelvis, no pancreatitis, colonic diverticulosis without any diverticulitis. IMPRESSION: A 73 years old male with nausea, vomiting, diarrhea, and profound hypotension. Exact cause of diarrhea is still not clear. Colonoscopy performed in [place] with colon biopsies showed some evidence of lymphocytic colitis, he has already been started on budesonide, which he has been taking close to two weeks now. There was also thought of irritable bowel syndrome diarrhea. Therefore, he is also on Xifaxan. He does not have any significant electrolyte disbalance. However, he is having significant hypotension. Although he did not have any excessive amount of watery diarrhea at home. As per patient's , he has had only one or two loose BM at home before coming to the emergency room. PLAN: Since extensive workup has already been done in [place] and those were nonconclusive except some suggestion of lymphocytic colitis, which is already being treated. Given the profound hypotension, I would like to rule out systemic disease such as Seferino. Therefore, we will check cortisol level. I do not suspect the patient is having any celiac disease, but the upper endoscopy and small bowel biopsies were negative when performed in [place]. I do not suspect the patient as the patient is already being treated with multiple broad-spectrum antibiotics for working diagnosis of any occult sepsis. I will continue to follow along with you. I thank Dr. Martini for allowing me to participate in the care of this patient. Arash Alanis MD SA/DIYA /[id number] BRANDON
[2018-10-30] MEDS: METRONIDAZOLE 500MG/NS 100ML 100 ML IV SCH (03:59)
[2018-10-30] MEDS: SODIUM CHLORIDE 0.9% 1000ML 1,000 ML IV SCH ×4 (04:05→22:16)
[2018-10-30] MEDS: PANTOPRAZOLE 40 MG 10ML VIAL IV SCH (06:31)
[2018-10-30 08:20] LABS: BASOPHILS % 0.2 % (0.0-1.0); EOSINOPHILS # (AUTO) 0.2 (0.0-0.4); EOSINOPHILS % 3.9 % (0.0-6.0); HEMATOCRIT 35.8 % (38.2-49.6); HEMOGLOBIN 11.9 g/dL (14.0-18.0); LYMPHOCYTES % 24.5 % (18.0-39.1); MEAN CORPUSCULAR HEMOGLOBIN 31.3 pg (28-32); MEAN CORPUSCULAR HGB CONC 33.2 g/dL (31-35); MEAN CORPUSCULAR VOLUME 94.2 fL (81-99); MONOCYTES # (AUTO) 0.6 (0.2-0.8); MONOCYTES % 14.5 % (4.4-11.3); NEUTROPHILS # (AUTO) 2.3 (2.1-6.9); NEUTROPHILS % 56.4 % (38.7-80.0); PLATELET COUNT 136 x10e3/uL (140-360); RED CELL DISTRIBUTION WIDTH 14.1 % (11.7-14.4)
[2018-10-30] MEDS: BUDESONIDE 3 MG CAPCR PO SCH (08:30)
[2018-10-30] MEDS: RIFAXIMIN 550 MG TABLET PO SCH ×2 (08:30→17:27)
[2018-10-30 08:37] LABS: ALANINE AMINOTRANSFERASE 19 IU/L (0-55); ALBUMIN 2.2 g/dL (3.5-5.0); ALBUMIN/GLOBULIN RATIO 0.8 (0.8-2.0); ALKALINE PHOSPHATASE 54 IU/L (40-150); ANION GAP 8.5 mmol/L (8-16); BLOOD UREA NITROGEN 12 mg/dL (7-26); BUN/CREATININE RATIO 16 (6-25); CALCIUM 8.4 mg/dL (8.4-10.2); CARBON DIOXIDE 20 mmol/L (22-29); CHLORIDE 114 mmol/L (98-107); CHOL/HDL RATIO 2.7 (3.9-4.7); CHOLESTEROL 78 MD/DL (0-199); CREATINE KINASE 34 IU/L (30-200); CREATININE, SERUM 0.76 mg/dL (0.72-1.25); EST GLOMERULAR FILTRATION RATE > 60 ML/MIN (60-); GLUCOSE 93 mg/dL (74-118); HDL CHOLESTEROL 29 MG/DL (40-60); LDL CHOLESTEROL 40 MG/DL (60-130); POTASSIUM 3.5 mmol/L (3.5-5.1); SODIUM 139 mmol/L (136-145); TRIGLYCERIDES 44 MG/DL (0-149)
[2018-10-30] MEDS ORDERED: GADOBENATE DIMEGLUMINE 1 ML IV ONE (09:30)
[2018-10-30 10:46] LABS: EOSINOPHILS % (MANUAL) 5 % (0-7); LYMPHOCYTES % (MANUAL) 10 % (19-48); MONOCYTES % (MANUAL) 9 % (3.4-9.0); NEUTROPHILS % (MANUAL) 75 % (40-74)
[2018-10-30 10:47] LABS: PLATELET ESTIMATE ADEQUATE; PLATELET MORPHOLOGY COMMENT NORMAL; RBC MORPHOLOGY COMMENT NORMAL
--- NOTE | 2018-10-30 13:01 | Consultation ---
DATE OF CONSULTATION: Pulmonary Critical Care Consultation REASON FOR THE CONSULT: ICU management. HISTORY OF PRESENT ILLNESS: Mr. Sepulveda is a 73-year-old male, who presented to the emergency room with complaints of diarrhea. The patient has been diagnosed with celiac disease. He had a colonoscopy performed by Dr. Gonzalez and there was a questionable lymphocytic colitis versus celiac disease. The patient denies any complaints. The patient was dehydrated and required multiple fluid boluses and also required Levophed, so he was transferred to ICU and hence, critical care consultation was done. He is stable now and off Levophed. His blood pressure has been stable. In the ER, the blood pressure went down to 87/64. He was tachycardic. He received IV fluid and central line was placed and IV Levophed was started. CT abdomen and pelvis done in the emergency room showed evidence of colonic diverticulosis with no evidence of diverticulitis. No acute finding in the abdomen and pelvis. REVIEW OF SYSTEMS: GENERAL: Denies any fever or chills. HEAD: Denies any head trauma. ENT: Denies any earache. CVS: Denies any chest pain. RESPIRATORY: Denies any shortness of breath. The rest of the review of systems are negative except as in HPI. PAST MEDICAL HISTORY: None. PAST SURGICAL HISTORY: Two knee surgeries and back surgery. FAMILY AND SOCIAL HISTORY: He does not smoke. Does not drink. PHYSICAL EXAMINATION: VITAL SIGNS: Temperature 98.3, pulse of 60, blood pressure 142/75, respiratory rate of 18, and O2 saturation 99% on 2 L. HEENT: Head is atraumatic and normocephalic. NECK: Supple. CHEST: Clear to auscultation bilaterally. No wheezing. HEART: S1 and S2 audible. ABDOMEN: Soft. EXTREMITIES: No pedal edema. NEUROLOGIC: Awake and alert. LABORATORY DATA: White count of 4.13, hemoglobin 11.9, and platelets 136. Chemistries within normal limits. ASSESSMENT/PLAN: Mr. Sepulveda is a 73-year-old male, who presented to the emergency room because of dizziness. The patient was hypotensive and required vasopressors. He has history of celiac disease and was having diarrhea, now doing better. Continue the patient on IV fluids. The patient is off Levophed and can be transferred out of ICU. Lactic acid is trended down to 11.4. MD JANETH Chance/DIYA /[id number]
--- NOTE | 2018-10-30 15:43 | History and Physical ---
PRIMARY CARE PHYSICIAN: Dr. Tex Sen. CONSULTANTS: 1. Dr. Cr Hernandez. 2. Dr. Kelsey Carvajal. 3. Dr. Pablo Piedra. CHIEF COMPLAINT: Hypotensive shock associated with severe dehydration secondary to acute on chronic diarrhea. SUMMARY: The patient is a 73-year-old male, known to the service. The patient had multiple readmission at [facility] for recurrent diarrhea. Extensive workup was done including multiple imaging tests. The patient had recurrent diarrhea, multiple tests were done. The patient celiac IgA is 563, which is higher than from 61 to 437 normal range and the gliadin antibody IgA is 43, normal is 0 to 219, endomysial IgA is negative, antibody TIG is less than 2 and antibody to gliadin is less than 2. The patient was started on a celiac diet at [facility] and his diarrhea completely resolved. His stool was formed. He did well, went home with a celiac diet instruction along with rifaximin and steroids, budesonide. The patient did well for a week and then yesterday the patient came in the evening with profound diarrhea. Blood pressure dropped down in the 80 to 90 systolic. The patient received multiple boluses. Noticed that the patient also was on Diovan HCT, not sure if that is correct, but that was on his home medication list. The patient is otherwise stable now. His blood pressure is maintained at 142/75. He is off pressure support. He is afebrile. He is tolerating oral intake, and he does not have any pain. The patient seemed to be stable. PAST MEDICAL HISTORY: Recurrent diarrhea since early September. Extensive workup was done. Recurrent dehydration, hypotension, nausea and vomiting. The patient already had endoscopy done, both upper and lower endoscopy. SOCIAL HISTORY: The patient does not smoke or use alcohol. No regular drugs. ALLERGIES: NO KNOWN ALLERGIES. HOME MEDICATIONS: , Zofran ODT p.r.n., rifaximin 550 mg twice a day and Diovan HCTZ 320/25 daily. REVIEW OF SYSTEMS: As above. PHYSICAL EXAMINATION: VITAL SIGNS: Temperature is 98, blood pressure 142/75, pulse rate is 59, respirations 18. GENERAL: The patient seems more comfortable now. He denies any distress. HEENT: Normocephalic, atraumatic. Pupils are reactive, anicteric. NECK: Supple grossly. PULMONARY: Clear. CARDIOVASCULAR: S1, S2. Regular rate and rhythm. ABDOMEN: Soft, non-distention. EXTREMITIES: No cyanosis or edema. NEUROLOGIC: No gross focal deficit. LABORATORY DATA: Sodium is 139, potassium 3.8, chloride 109, bicarb 19, BUN 12, creatinine 1.1, glucose 104. WBC 6.8, hemoglobin 13.6, hematocrit 41.3, platelets is 160. Imaging tests including abdominal pelvic CT, brain CT, chest x-ray otherwise all are unremarkable. IMPRESSION: 1. Acute dehydration associated with acute on chronic diarrhea superimposed on possibility of the patient taking blood pressure medication, Diovan HCTZ, not sure how he gets the prescription for blood pressure medication. Previously did instruct the patient to stop all his blood pressure medication. 2. Possible celiac disease or celiac like syndrome versus lymphocytic enteritis. We will check serologies further. PLAN: Continue with management. IV fluids. Start on celiac diet. Consultation with emotionally impaired teacher. Stop all the antibiotics for now. We will monitor the patient closely. MD JEANETTE Dickson/LISETHL /[id number]
--- NOTE | 2018-10-30 17:53 | NUR ---
Nutrition Education Notes The patient celiac IgA is 563, which is higher than from 61 to 437 normal range and the gliadin antibody IgA is 43, normal is 0 to 219, endomysial IgA is negative, antibody TIG is less than 2 and antibody to gliadin is less than 2.Pt was started on celiac diet at [facility]. Pt was given diet instruction upon discharge. Visited pt in the room today. Albanian speaking only. [employer] was used to translate. Pt had some questions regarding gluten free diet. Answered all his questions. However, pt would like RD to return for education when daughter is present. Will leave a note to RD tomorrow AM. Learner(s): pt Time spent: 30minutes Barriers: No barriers identified. Cultural/Language Modifications: Pt speaks Albanian only. [employer] service was used. Readiness: Pt eager to learn. Method: Handouts, explanation Topics: Celiac disease nutrition therapy Gluten free diet Understanding/Compliance: Expect fair understanding/compliance from pt. Will benefit from reinforcement. All questions have been answered. Signed by Katty Levy, , RD, LD
--- NOTE | 2018-10-30 18:14 | NUR ---
RECEIVED PATIENT FROM ICU. PATIENT A/O X3, EVEN RESPIRATIONS ON RA. BOWEL SOUNDS ACTIVE. SKIN INTACT, NO EDEMA. RIGHT IJ AND RIGHT EJ 18 GAUGE. NS @ 75 CC/HR. PATIENT AMBULATES INDEPENDENTLY AND VOIDS IN TOILET. NO PAIN AT THIS TIME. FAMILY AT BEDSIDE. CALL LIGHT IN REACH WILL CONTINUE TO MONITOR PATIENT.
--- NOTE | 2018-10-30 19:00 | NUR ---
RECEIVED PATIENT IN BEDSIDE REPORT. PATIENT AMBULATING AROUND ROOM, STEADY GAIT NOTED. NO PAIN REPORTED. NO S&S OF DISTRESS NOTED. BED LOCKED IN LOWEST POSITION, SIDE RAILS UPX2, CALL LIGHT IN REACH.
--- NOTE | 2018-10-30 23:59 | Progress Note ---
DATE: 10/30/2018 GI Progress Report SUBJECTIVE: The patient was successfully transferred from ICU to the medical floor. He is no longer on any vasopressors. He is maintaining systolic blood pressure above 120. He is on GI soft diet. He has had seven watery stools today. No associated abdominal pain. No nausea or vomiting. REVIEW OF SYSTEMS: GENERAL: Admits to some weakness and fatigue. No fever or chills. CVS: No chest pain or palpitation. RESPIRATORY: No cough or expectoration. MEDICATIONS: Reviewed as per APR, antibiotics which was started yesterday, all of them has been discontinued. He is on budesonide as well as Xifaxan. OBJECTIVE: VITAL SIGNS: Temperature 98.2, pulse 60, respirations 16, blood pressure 143/84, oxygen saturation 100% on room air. GENERAL: Not in any acute distress. HEENT: Oral mucosa is moist. Anicteric sclerae. CVS: S1, S2. Regular. LUNGS: Bilaterally grossly clear. ABDOMEN: Soft, nondistended, nontender. No palpable mass or hernia. Bowel sounds slightly hyperactive. No other mass or hernia. EXTREMITIES: Warm. No leg edema. LABORATORY DATA: WBC 4.13, hemoglobin 11.9 down from 13.6, hematocrit 35.8, MCV 94.2, and platelet count 136. Sodium 139, potassium 3.5, chloride 114, bicarb 20, BUN 12 and creatinine 0.76. Liver enzymes normal. Total bilirubin is 1.5. Albumin level is 2.2. TSH is 0.998. Cortisol level is pending. ASSESSMENT: Profuse watery diarrhea, likely secretory. Exact cause of diarrhea is still unknown. Budesonide is being continued based upon colon biopsies, which was performed in [facility], was suspicious for lymphocytic infiltration. There is no definite diagnosis of lymphocytic colitis. Small bowel biopsies were also negative. Celiac serology is pending. PLAN: Continue IV fluids, regular diet, follow up cortisol level. Check chromogranin level for any occult neuroendocrine tumor such as VIPoma or carcinoid. The patient will benefit from octreotide scan. If cortisone level remains normal and diarrhea still continues. I recommend the patient is to be transferred to a tertiary medical center for further evaluation and workup. The case was discussed with Dr. Carvajal over the phone. Arash Alanis MD SA/DIYA /[id number]
[2018-10-31] VITALS (8 sets, daily range): BP systolic 130–168; BP diastolic 76–92
[2018-10-31] MEDS: PANTOPRAZOLE 40 MG 10ML VIAL IV SCH (05:24)
[2018-10-31 05:30] LABS: BASOPHILS % 0.2 % (0.0-1.0); EOSINOPHILS # (AUTO) 0.1 (0.0-0.4); EOSINOPHILS % 1.8 % (0.0-6.0); HEMOGLOBIN 11.2 g/dL (14.0-18.0); LYMPHOCYTES # (AUTO) 1.2 (1.0-3.2); LYMPHOCYTES % 22.1 % (18.0-39.1); MEAN CORPUSCULAR HEMOGLOBIN 31.3 pg (28-32); MEAN CORPUSCULAR HGB CONC 32.9 g/dL (31-35); MONOCYTES # (AUTO) 0.6 (0.2-0.8); MONOCYTES % 10.6 % (4.4-11.3); NEUTROPHILS # (AUTO) 3.6 (2.1-6.9); NEUTROPHILS % 64.8 % (38.7-80.0); PLATELET COUNT 156 x10e3/uL (140-360); RED BLOOD COUNT 3.58 x10e6/uL (4.3-5.7); RED CELL DISTRIBUTION WIDTH 13.9 % (11.7-14.4)
[2018-10-31 05:47] LABS: MAGNESIUM 1.6 MG/DL (1.3-2.1); PHOSPHORUS 2.5 MG/DL (2.3-4.7)
[2018-10-31 06:02] LABS: ANION GAP 13.2 mmol/L (8-16); BLOOD UREA NITROGEN 8 mg/dL (7-26); BUN/CREATININE RATIO 11 (6-25); CALCIUM 8.7 mg/dL (8.4-10.2); CARBON DIOXIDE 16 mmol/L (22-29); CHLORIDE 117 mmol/L (98-107); CREATININE, SERUM 0.74 mg/dL (0.72-1.25); EST GLOMERULAR FILTRATION RATE > 60 ML/MIN (60-); GLUCOSE 99 mg/dL (74-118); POTASSIUM 3.2 mmol/L (3.5-5.1); SODIUM 143 mmol/L (136-145)
--- NOTE | 2018-10-31 06:18 | NUR ---
SPOKE WITH MD CAMARILLO. PATIENT REQUESTING TYLENOL FOR MILD PAIN IN NECK FROM IJ CENTRAL LINE AND IV, SITES ASSESSED, ASYMPTOMATIC, INTACT, AND PATENT. NEW ORDERS RECEIVED.
[2018-10-31] MEDS: ACETAMINOPHEN 325 MG TAB PO PRN (06:27)
--- NOTE | 2018-10-31 07:08 | NUR ---
RECEIVED PATIENT RESTING IN BED NO S/S OF DISTRESS. BED LOW, WHEELS LOCKED, SIDE RAILS X2. CALL LIGHT IN REACH WILL CONTINUE TO MONITOR PATIENT.
[2018-10-31] MEDS: RIFAXIMIN 550 MG TABLET PO SCH ×2 (08:34→16:55)
[2018-10-31] MEDS: BUDESONIDE 3 MG CAPCR PO SCH (08:34)
--- NOTE | 2018-10-31 09:40 | NUR ---
PATIENT A/O X3, EVEN RESPIRATIONS ON RA. BOWEL SOUNDS ACTIVE. SKIN INTACT, NO EDEMA. RIGHT IJ AND RIGHT EJ 18 GAUGE. NS @ 75 CC/HR. PATIENT AMBULATES INDEPENDENTLY AND VOIDS IN TOILET. NO PAIN AT THIS TIME. PATIENT HAD ONE LIQUID BOWEL MOVEMENT THIS MORNING. VITAL SIGNS STABLE. CALL LIGHT IN REACH WILL CONTINUE TO MONITOR PATIENT.
[2018-10-31] MEDS: SODIUM CHLORIDE 0.9% 1000ML 1,000 ML IV SCH (11:21)
[2018-10-31] MEDS ORDERED: MAGNESIUM SULFATE 2GM/50ML IV NR (14:45)
--- NOTE | 2018-10-31 16:40 | NUR ---
REMOVED PATIENTS CENTRAL LINE. CATHETER TIP INTACT ON REMOVAL AND PRESSURE DRESSING APPLIED.
[2018-10-31] MEDS: SOD CHL 0.45%/POT CHL 20MEQ 1,000 ML IV SCH (16:55)
--- NOTE | 2018-10-31 17:23 | Progress Note ---
DATE: SUBJECTIVE: I have been discussing his case with GI as well as with Internal Medicine almost every day. The patient is feeling better today. There is no more diarrhea. REVIEW OF SYSTEMS: Otherwise unremarkable. Apparently, he did not took any of his medications once he went home. His review of systems otherwise unremarkable. PHYSICAL EXAMINATION: GENERAL: He is currently alert, oriented, does not seem in acute distress. No fevers since admission. VITALS: Stable, currently afebrile. HEENT: Not icteric. NECK: Supple. CHEST: Clear. HEART: S1 and S2. ABDOMEN: Soft. Bowel sounds present. EXTREMITIES: No edema. LABORATORY DATA: Reviewed. White count is 5.48, hemoglobin 11. Sodium . C diff is negative. IMPRESSION: Diarrhea, etiology unclear. I do not think it is infectious. Extensive workup done here. Discussed with GI. Discussed with Internal Medicine. May need to get referral in the Medical Center for second opinion. MD PARUL Costa/DIYA /[id number]
[2018-11-01] VITALS (8 sets, daily range): BP systolic 125–167; BP diastolic 65–89
[2018-11-01] MEDS: SOD CHL 0.45%/POT CHL 20MEQ 1,000 ML IV SCH ×3 (00:45→20:45)
[2018-11-01 05:53] LABS: ANION GAP 13.1 mmol/L (8-16); BLOOD UREA NITROGEN 5 mg/dL (7-26); BUN/CREATININE RATIO 7 (6-25); CALCIUM 8.6 mg/dL (8.4-10.2); CARBON DIOXIDE 20 mmol/L (22-29); CHLORIDE 113 mmol/L (98-107); EST GLOMERULAR FILTRATION RATE > 60 ML/MIN (60-); GLUCOSE 93 mg/dL (74-118); POTASSIUM 3.1 mmol/L (3.5-5.1); SODIUM 143 mmol/L (136-145)
--- NOTE | 2018-11-01 07:15 | NUR ---
RECEIVED PATIENT RESTING IN BED NO S/S OF DISTRESS. BED LOW, WHEELS LOCKED ,SIDE RAILS X2. CALL LIGHT IN REACH WILL CONTINUE TO MONITOR PATIENT.
[2018-11-01] MEDS: BUDESONIDE 3 MG CAPCR PO SCH (08:09)
[2018-11-01] MEDS: RIFAXIMIN 550 MG TABLET PO SCH ×2 (08:09→16:35)
[2018-11-01] MEDS ORDERED: POTASSIUM CHLORIDE 10MEQ EA PO NR (09:00)
[2018-11-01] MEDS: MAGNESIUM OXIDE 400 MG TAB PO SCH ×2 (09:47→16:35)
[2018-11-01] MEDS: ACETAMINOPHEN 325 MG TAB PO PRN ×2 (09:51→16:39)
--- NOTE | 2018-11-01 10:00 | NUR ---
PATIENT A/O X3, EVEN RESPIRATIONS ON RA. BOWEL SOUNDS ACTIVE. SKIN INTACT, NO EDEMA. RIGHT EJ 18 GAUGE. IVF @ 100 CC/HR. PATIENT AMBULATES INDEPENDENTLY AND VOIDS IN TOILET. NO PAIN AT THIS TIME. PATIENT HAD BM LAST NIGHT, STATED IT WAS LIQUID AND FORMED. VITAL SIGNS STABLE. CALL LIGHT IN REACH WILL CONTINUE TO MONITOR PATIENT.
--- NOTE | 2018-11-01 13:30 | NUR ---
Visit made by the Spiritual Care Department Pastoral Visitor, Ajay Saldaña. PV provided pastoral presence, communion, hospitality, and supportive listening. Pastoral Visitor informed pt/family of the scope of Administrative Professional Services and availability. PRINCE FRASER Players Assistant Spiritual Care Department O: [phone] Pager: [phone] ([phone] number calling from)
[2018-11-01 19:08] LABS: ENDOMYSIAL ANTIBODIES, IGA Negative (Negative)
[2018-11-02] VITALS (8 sets, daily range): BP systolic 134–175; BP diastolic 79–94
[2018-11-02] MEDS: ACETAMINOPHEN 325 MG TAB PO PRN (01:37)
--- NOTE | 2018-11-02 02:15 | NUR ---
Patient complaint of pain to EJ site swelling to the neck noted. No blood return. EJ pulled out. IV gauge 20 inserted to right wrist.
[2018-11-02 06:46] LABS: ANION GAP 13.2 mmol/L (8-16); BLOOD UREA NITROGEN 7 mg/dL (7-26); BUN/CREATININE RATIO 10 (6-25); CALCIUM 8.7 mg/dL (8.4-10.2); CARBON DIOXIDE 23 mmol/L (22-29); CHLORIDE 109 mmol/L (98-107); CREATININE, SERUM 0.72 mg/dL (0.72-1.25); EST GLOMERULAR FILTRATION RATE > 60 ML/MIN (60-); GLUCOSE 90 mg/dL (74-118); POTASSIUM 3.2 mmol/L (3.5-5.1); SODIUM 142 mmol/L (136-145)
[2018-11-02 07:31] LABS: MAGNESIUM 1.6 MG/DL (1.3-2.1); PHOSPHORUS 2.9 MG/DL (2.3-4.7)
--- NOTE | 2018-11-02 07:33 | NUR ---
received report from pharmacy cashier RN, pt resting in bed, no distress noted, will continue to monitor.
[2018-11-02] MEDS ORDERED: MAGNESIUM SULFATE 2GM/50ML IV ONE (08:45)
[2018-11-02] MEDS ORDERED: MAGNESIUM SULFATE 2GM/50ML 50 ML IV ONE (09:00)
[2018-11-02] MEDS: RIFAXIMIN 550 MG TABLET PO SCH ×2 (09:10→17:36)
[2018-11-02] MEDS: BUDESONIDE 3 MG CAPCR PO SCH (09:10)
[2018-11-02] MEDS: MAGNESIUM OXIDE 400 MG TAB PO SCH ×2 (09:10→17:36)
[2018-11-02] MEDS: SOD CHL 0.45%/POT CHL 20MEQ 1,000 ML IV SCH ×3 (09:12→19:41)
[2018-11-02] MEDS ORDERED: POTASSIUM CHLORIDE 10MEQ EA PO ONE (09:30)
--- NOTE | 2018-11-02 12:03 | NUR ---
EDUCATED ABOUT IMM, SIGNED, FILED IN CHART, WITH COPY LEFT WITH FAMILY AT BEDSIDE.
[2018-11-02] MEDS ORDERED: ONDANSETRON HCL 4 MG ORAL DISINTEGRATING TAB PO PRN (12:15)
--- NOTE | 2018-11-02 16:05 | NUR ---
Nutrition Screen Note RD Recommendation for Physician: - Continue current diet Plan of Care: RD following, monitoring for tolerance and adequacy Nutrition reason for involvement: RN Consult- diet education Primary Diagnose(s): hypotension, nausea, celiac disease, sepsis, diarrhea PMH: No hx per pt Ht: 66 in Wt: 138 lb BMI: 22.3 kg/m2 IBW: [address] Assessment: (11/02) 73 YOM admitted for GI distress and hypotension found to have celiac disease per antibody testing. Pt seen per diet education consult. Celiac diet education materials in Surinamese provided to pt, pt previously educated on 10/30. Pt with no questions or concerns at this time. Pt discussed during am rounds. Pt with very good po intake, 100% of meals per chart. Diarrhea has resolved. Lytes replaced today. Chart reviewed. Labs and meds reviewed. 10/30: The patient celiac IgA is 563, which is higher than from 61 to 437 normal range and the gliadin antibody IgA is 43, normal is 0 to 219, endomysial IgA is negative, antibody TIG is less than 2 and antibody to gliadin is less than 2.Pt was started on celiac diet at [facility]. Pt was given diet instruction upon discharge. Visited pt in the room today. Surinamese speaking only. [facility] Staff Nurse was used to translate. Pt had some questions regarding gluten free diet. Answered all his questions. However, pt would like RD to return for education when daughter is present. Will leave a note to RD tomorrow AM. Learner(s): pt Time spent: 30minutes Barriers: No barriers identified. Cultural/Language Modifications: Pt speaks Surinamese only. [facility] Staff Nurse service was used. Readiness: Pt eager to learn. Method: Handouts, explanation Topics: Celiac disease nutrition therapy Gluten free diet Understanding/Compliance: Expect fair understanding/compliance from pt. Will benefit from reinforcement. All questions have been answered. Current Diet: Gluten free/celiac Malnutrition Evaluation (11/02/18) The patient does not meet criteria for a specified degree of malnutrition at this time. Will re-evaluate at follow-up as appropriate. Diet Education Needs Assessment: Diet education indicated, pt receptive and additional materials provided 11/02. Learner(s): pt Barriers: language Cultural/Language Modifications: handouts provided in Surinamese Readiness: eager Method: handouts Topics: Celiac disease nutrition therapy, label reading Understanding/Compliance: UTD Nutrition Care Level: Low Signed: Jennifer Javier RD, YU, [facility]
--- NOTE | 2018-11-02 18:56 | NUR ---
report given to oncoming assistant shift supervisor RN, pt ambulating well, no distress noted, call light within reach, family at bedside, in stable condition
--- NOTE | 2018-11-02 19:08 | Diagnostic Imaging Report ---
CARDIOVASCULAR MRI & MRA OF THE ABDOMEN Comparison: CT abdomen and pelvis 10/29/2018 Indication: ^r/o ischemic colitis Technique: Siemens Espree 1.5 T MRI scanner. * T2 Haste imaging for anatomic definition. * Contrast-enhanced volume sets acquired for three-dimensional MRA reconstructions after injection of gadolinium-chelate (Multihance, 13 cc). * For more optimal morphologic evaluation, off-line advanced post-processing of the 3-D data was performed (using multiplanar, cbykutr-rrbhcvcyy-dleclssyol, and/or volume-rendered reconstructions). FINDINGS: ABDOMINAL AORTA: The abdominal aorta is normal in course, caliber and contour. There is no evidence for acute aortic pathology. The celiac artery and SMA are widely patent. Minimal atherosclerotic changes of the proximal celiac artery without stenosis. Focal atherosclerotic plaque in the MATTHEW results at least a moderate stenosis (50-69%). Renal arteries: bilateral single renal arteries are normal in caliber and widely patent. No atherosclerotic changes or wall thickening identified. The abdominal aorta measures: 2.5 cm at the supramesenteric segment 2.7 cm at the mesenteric segment 2.2 cm at the renal segment 2.2 cm at the mid infrarenal segment 1.8 cm at the aortic bifurcation. LOWER CHEST: Unremarkable. ABDOMEN: The liver, gallbladder, spleen, and adrenal glands appear unremarkable. Few scattered subcentimeter bilateral renal cysts and unchanged. BONES AND SOFT TISSUES: Unremarkable on limited evaluation. IMPRESSION: Normal abdominal aorta. Widely patent celiac artery and SMA. At least moderate stenosis of the proximal MATTHEW (50-69%), unchanged when compared to 10/29/2018. Signed by: Dr. Osiris Garcia M.D. on 11/02/2018 7:05 PM
--- NOTE | 2018-11-02 23:25 | Progress Note ---
DATE: 11/02/2018 SUBJECTIVE: The patient reports only one bowel movement, stool soft brown. He took the picture and showed it to me. No longer having any watery diarrhea. REVIEW OF SYSTEMS: GENERAL: No fever or chills. CVS: No chest pain or palpitations. RESPIRATORY: No cough or expectoration. MEDICATIONS: Reviewed as per APR. PHYSICAL EXAMINATION: VITAL SIGNS: Temperature 97.2, pulse 54, respirations 18, blood pressure 134/91, and oxygen saturation 100% on room air. GENERAL: Not in any acute distress. HEENT: Oral mucosa is moist. Anicteric sclerae. ABDOMEN: Soft, nondistended, and nontender. No mass or hernia. Positive bowel sounds. LABORATORY DATA: WBC 5.48, hemoglobin 11.2, hematocrit 34, MCV 95, and platelet count 156. Sodium 142, potassium 3.2, chloride 109, bicarb 23, BUN 7, creatinine 0.72, glucose 90. PT 16. Serum cortisol level is still pending. Celiac serology is negative. Stool C diff toxin negative. Stool occult blood positive. IMPRESSION: 1. Diarrhea, unclear etiology has resolved. 2. Continues to have hypokalemia. PLAN: I called the Lab to find out when the cortisol level will become available. Continue present medication. Arash Alanis MD SA/DIYA /[id number] MTDD
[2018-11-03] VITALS (9 sets, daily range): BP systolic 123–164; BP diastolic 75–93
[2018-11-03 06:50] LABS: ANION GAP 13.7 mmol/L (8-16); BLOOD UREA NITROGEN 8 mg/dL (7-26); BUN/CREATININE RATIO 11 (6-25); CALCIUM 9.4 mg/dL (8.4-10.2); CARBON DIOXIDE 26 mmol/L (22-29); CHLORIDE 108 mmol/L (98-107); CREATININE, SERUM 0.73 mg/dL (0.72-1.25); EST GLOMERULAR FILTRATION RATE > 60 ML/MIN (60-); GLUCOSE 89 mg/dL (74-118); POTASSIUM 3.7 mmol/L (3.5-5.1); SODIUM 144 mmol/L (136-145)
--- NOTE | 2018-11-03 07:05 | NUR ---
pt awake resp even and unlabored at this time, pt able to make needs known no c/o pain at this time no distress noted, call light in reach.
[2018-11-03] MEDS: MAGNESIUM OXIDE 400 MG TAB PO SCH ×2 (08:28→17:05)
[2018-11-03] MEDS: BUDESONIDE 3 MG CAPCR PO SCH (08:28)
[2018-11-03] MEDS: RIFAXIMIN 550 MG TABLET PO SCH ×2 (08:28→17:05)
--- NOTE | 2018-11-03 19:00 | NUR ---
RECEIVED PATIENT IN BEDSIDE REPORT. PATIENT SITTING ON COUCH AT BEDSIDE. NO PAIN REPORTED. NO S&S OF DISTRESS NOTED. BED LOCKED IN LOWEST POSITION, SIDE RAILS UPX2, CALL LIGHT IN REACH.
--- NOTE | 2018-11-03 19:25 | NUR ---
Report given to oncoming nurse pt stable.
[2018-11-04] VITALS (9 sets, daily range): BP systolic 137–156; BP diastolic 76–87
--- NOTE | 2018-11-04 01:23 | Progress Note ---
DATE: 11/03/2018 SUBJECTIVE: The patient has had a too soft bowel movement, stool brown. Diarrhea has completely resolved. Tolerating oral diet. No nausea or vomiting. REVIEW OF SYSTEMS: GENERAL: No fever or chills. CVS: No chest pain or palpitation. RESPIRATORY: No cough or expectoration. MEDICATIONS: Reviewed as per APR. He is on budesonide and rifaximin along with acetaminophen as well as magnesium oxide. PHYSICAL EXAMINATION: VITAL SIGNS: Temperature 96.2, pulse 60, respirations 16, blood pressure 163/91, oxygen saturation 96% on room air. GENERAL: Not in any acute distress. Oral mucosa is moist. EYES: Anicteric sclerae. ABDOMEN: Soft, nondistended, nontender. No palpable mass or hernia. Positive bowel sounds. LABORATORY DATA: Electrolytes showed sodium 144, potassium 3.7, chloride 108, bicarb 26. BUN 8, creatinine 0.73. IMPRESSION: Diarrhea is due to lymphocytic colitis. PLAN: I discussed the case with Dr. Lowe today. I found out that the patient could not refill budesonide when he was discharged from the hospital. He was not able to afford it. It was too expensive for him. Ever since he is hospitalized here, after starting budesonide, his diarrhea has resolved. Therefore, this establishes the diagnosis of lymphocytic colitis. Since the patient cannot afford budesonide, therefore alternative would be to use mesalamine or Pepto-Bismol. I suggested Dr. Lowe that when he discharged the patient home, then he advises the patient to take [id number] Pepto-Bismol tablets or liquids. I would prefer tablets. The patient also has a followup appointment to see my associate, Dr. Gonzalez within one week. The patient can be discharged home from GI standpoint. Arash Alanis MD SA/DIYA /[id number]
[2018-11-04 06:24] LABS: ANION GAP 13.8 mmol/L (8-16); BLOOD UREA NITROGEN 10 mg/dL (7-26); BUN/CREATININE RATIO 13 (6-25); CALCIUM 9.1 mg/dL (8.4-10.2); CARBON DIOXIDE 26 mmol/L (22-29); CHLORIDE 107 mmol/L (98-107); CREATININE, SERUM 0.76 mg/dL (0.72-1.25); EST GLOMERULAR FILTRATION RATE > 60 ML/MIN (60-); GLUCOSE 90 mg/dL (74-118); POTASSIUM 3.8 mmol/L (3.5-5.1); SODIUM 143 mmol/L (136-145)
[2018-11-04 06:44] LABS: MAGNESIUM 1.8 MG/DL (1.3-2.1); PHOSPHORUS 3.7 MG/DL (2.3-4.7)
--- NOTE | 2018-11-04 07:13 | NUR ---
RECEIVED PATIENT RESTING IN BED NO SIGNS OF DISTRESS. BED LOW, WHEELS LOCKED, SIDE RAILS X2. CALL LIGHT IN REACH WILL CONTINUE TO MONITOR PATIENT.
[2018-11-04] MEDS: RIFAXIMIN 550 MG TABLET PO SCH (08:10)
[2018-11-04] MEDS: MAGNESIUM OXIDE 400 MG TAB PO SCH ×2 (08:10→17:09)
[2018-11-04] MEDS: BUDESONIDE 3 MG CAPCR PO SCH (08:10)
--- NOTE | 2018-11-04 09:18 | NUR ---
EDUCATED ABOUT IMM, SIGNED, FILED IN CHART, WITH COPY LEFT WITH FAMILY AT BEDSIDE.
--- NOTE | 2018-11-04 10:16 | NUR ---
PATIENT A/O X3, EVEN RESPIRATIONS ON RA. BOWEL SOUNDS ACTIVE, SKIN INTACT, NO EDEMA. RIGHT WRIST 20 GAUGE IV SL. IV INTACT AND PATENT. PATIENT AMBULATORY. NO PAIN OR DISCOMFORT AT THIS TIME. VS STABLE. CALL LIGHT IN REACH WILL CONTINUE TO MONITOR PATIENT.
[2018-11-04] MEDS: BISMUTH SUBSALICYLATE 262 MG TAB PO SCH ×3 (13:06→21:02)
--- NOTE | 2018-11-04 18:45 | NUR ---
Received bedside report from day RN. The patient is sitting up on the chair, not in distress. Family member at bedside. Call light within reach, bed height low, side rails up x2 and wheels lock.
[2018-11-05] VITALS (9 sets, daily range): BP systolic 139–178; BP diastolic 77–86
--- NOTE | 2018-11-05 07:08 | NUR ---
RECEIVED PATIENT RESTING IN BED NO S/S OF DISTRESS. BED LOW, WHEELS LOCKED, SIDE RAILS X2. CALL LIGHT IN REACH WILL CONTINUE TO MONITOR PATIENT.
[2018-11-05] MEDS: MAGNESIUM OXIDE 400 MG TAB PO SCH ×2 (08:42→16:46)
[2018-11-05] MEDS: BUDESONIDE 3 MG CAPCR PO SCH (08:42)
[2018-11-05] MEDS: BISMUTH SUBSALICYLATE 262 MG TAB PO SCH ×3 (08:42→22:47)
[2018-11-05] MEDS: ACETAMINOPHEN 325 MG TAB PO PRN ×2 (08:54→23:16)
--- NOTE | 2018-11-05 14:45 | NUR ---
spoke to [facility] about prescription for entocort xr 9mg capsule. Birdie Inman at [facility] states that budeside dr 3 mg is on formulary and gave contreras of $331.34 for 90 tablets ( ). notified dr. paez of need for new prescription and to expect patient to come to clinic for it. 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 md calls for d/c order just now and states he will come in and d/c patient and provide new prescription. nurse states patient's daughter states she is looking for drug in [place]. patient given pharmacies in area that are in network.
--- NOTE | 2018-11-05 19:11 | NUR ---
received patient aaox3, ambulating hallways- steady gait. resp even and unlabored. family members in room. no needs voiced at this time.
--- NOTE | 2018-11-06 01:24 | Progress Note ---
DATE: 11/05/2018 SUBJECTIVE: The patient reports no more diarrhea. One or two soft brown stool daily. Tolerating oral diet. Anxious to go home. REVIEW OF SYSTEMS: GENERAL: No fever or chills. CVS: No chest pain or palpitation. RESPIRATORY: No cough or expectoration. MEDICINES: Reviewed the MAR. He is getting magnesium oxide 400 mg twice daily, Pepto-Bismol 524 mg q.8 hours daily, acetaminophen 650 mg q.6 hours as needed, budesonide 9 mg p.o. daily, and Zofran 4 mg every 4 hours as needed. PHYSICAL EXAMINATION: VITAL SIGNS: Temperature 97.4, pulse 64, respirations 16, blood pressure 147/82, oxygen saturation 98% on room air. GENERAL: Not in any acute distress. HEENT: Oral mucosa is moist. Anicteric sclerae. ABDOMEN: Soft, nondistended, nontender. No mass or hernia. LABORATORY DATA: The patient's current cortisol level on 10/30/2018 was noted normal. IMPRESSION: Lymphocytic colitis, responding very well to budesonide, this is being switched with Pepto-Bismol. PLAN: The patient can be discharged home on Pepto-Bismol if he cannot afford budesonide. He already has a followup appointment to see my associate, Dr. Gonzalez next week. Arash Alanis MD SA/DIYA /[id number]
[2018-11-06 04:00] VITALS: BP 150/81
[2018-11-06] MEDS: BISMUTH SUBSALICYLATE 262 MG TAB PO SCH (06:32)
[2018-11-06] MEDS: ACETAMINOPHEN 325 MG TAB PO PRN (06:37)
--- NOTE | 2018-11-06 07:00 | NUR ---
received report from safety net maker RN, pt laying in bed, awake, alert, oriented, no distress noted, call light within reach, will continue to monitor.
[2018-11-06 08:25] VITALS: BP 117/59
[2018-11-06 08:27] VITALS: BP 155/71
[2018-11-06] MEDS: MAGNESIUM OXIDE 400 MG TAB PO SCH (08:38)
[2018-11-06] MEDS: BUDESONIDE 3 MG CAPCR PO SCH (08:38)
[2018-11-06 08:46] VITALS: BP 155/71
--- NOTE | 2018-11-06 11:59 | NUR ---
EDUCATED ABOUT IMM, SIGNED, FILED IN CHART, WITH COPY LEFT WITH FAMILY AT BEDSIDE.
[2018-11-06 12:50] VITALS: BP 161/85
--- NOTE | 2018-11-06 19:15 | Discharge Summary ---
FINAL DIAGNOSES: 1. Recurrent profound diarrhea. The patient apparently was not able to receive Entocort medication that he was given previously for possibility of lymphocytic colitis. 2. Multiple serology workup including IgA repeated for 14, endomysial IgA antibody is negative and the patient's cortisone a.m. level was normal. SUMMARY: This is a 73-year-old male came in with repeated diarrhea. This is his 5th admission within the past 1 or 2 months. The patient had an extensive workup including two colonoscopy and EGD done as well. Multiple imaging testing with MRI, MRA, CAT scan of abdomen and pelvis, and subsequent serology test. Repeated serology IgA endomysial and IgA antibody and IgA all otherwise within normal limits. The patient did better. However, the diarrhea improved with Entocort EC 9 mg once a day. Apparently, last admission, he was without diarrhea. Stool was firm when he was on the medication. When he went home, he was unable to get the medication due to the cost of the medication. Now, the patient is able to get approval authorization for 1 month supply and we will continue with medication and then follow up with Dr. Gonzalez within a week after his discharge for the patient to continue with treatment. The patient is stable, discharged home today. Discussed with patient and daughter at length. Medication has been adjusted. Discharge medication as follows. The patient can take the budesonide EC 3 mg capsule, 3 capsules daily. The Lomotil p.r.n. The acidophilus two caps b.i.d. The patient's Zofran p.r.n. He will stop the Rifaximin and the Diovan HCT. The patient may take Norvasc 5 mg daily. The patient is stable, discharged home. Follow up as an outpatient with Dr. Gonzalez within a week. MD JEANETTE Dickson/DIYA /[id number]
== END 2018-11-06 14:06 | disposition home or self-care (01) | DRG 391 ==
LOC: ER 10:38 → ERHOLD 12:05 → ICU 19:45 → MED/SURG 10-30 18:15
PROVIDERS: ADMIT Internal Medicine; ATTEND Internal Medicine
PROC: 02HV33Z Insertion of Infusion Device into Superior Vena Cava, Percutaneous Approach (ICD-10-PCS; principal; 2018-10-29)
PROC: B548ZZA Ultrasonography of Superior Vena Cava, Guidance (ICD-10-PCS; 2018-10-29)
DX: K52.832 Lymphocytic colitis (principal); R57.1 Hypovolemic shock; I10 Essential (primary) hypertension; I95.9 Hypotension, unspecified; E87.6 Hypokalemia; I95.2 Hypotension due to drugs; T50.2X5A Adverse effect of carbonic-anhydrase inhibitors, benzothiadiazides and other diuretics, initial encounter; R53.81 Other malaise
CPT/HCPCS: 36415; 36556; 70450; 71045; 74177; 74185; 80048; 80053; 80061; 81001; 82270; 82533; 82550; 82553; 82784; 83516; 83605; 83690; 83735; 83880; 84100; 84443; 84484; 85025; 85610; 85730; 86256; 87040; 87045; 87071; 87086; 87205; 87328; 87493; 93005; 93306; 96366; 99285; J2405; J3370; J3475; J7030

== ENCOUNTER 2018-11-27 10:24 | Observation (INO) | payer OTHER ==
[~2018-11-27] VITALS: Ht 162.6 cm; Wt 64.6 kg
[~2018-11-27 10:24] MED LIST changes: +ACIDOPHILUS1 EAC1 PO; +BUDESONIDE EC3 MG PO; +DIPHENOXYLATE-1 EACH PO; +ONDANSETRON ODT8 MG PO; +XIFAXAN550 MG PO
[2018-11-27] MEDS ORDERED: ONDANSETRON HCL INJ 2MG/ML 2ML 2 MG/ML VIAL IV STA (10:46)
[2018-11-27] MEDS ORDERED: SODIUM CHLORIDE 0.9% 1000ML 1,000 ML IV STA (10:46)
--- NOTE | 2018-11-27 10:47 | NUR ---
SEEN IN TRIAGE BY WAREHOUSE TRAINER
--- NOTE | 2018-11-27 10:55 | NUR ---
MD/ENROLLMENT MANAGEMENT MANAGER EVAL IN TRIAGE. VOMITING WITH FLECKS OF RED UNK SUBSTANCE NOTED. OTHERWISE YELLOW BILE LIKE FLUID VOMITED.
[2018-11-27 11:06] LABS: BASOPHILS % 0.2 % (0.0-1.0); EOSINOPHILS # (AUTO) 0.1 (0.0-0.4); EOSINOPHILS % 0.9 % (0.0-6.0); HEMATOCRIT 48.6 % (38.2-49.6); LYMPHOCYTES # (AUTO) 1.8 (1.0-3.2); LYMPHOCYTES % 21.2 % (18.0-39.1); MEAN CORPUSCULAR HEMOGLOBIN 31.3 pg (28-32); MEAN CORPUSCULAR HGB CONC 32.9 g/dL (31-35); MEAN CORPUSCULAR VOLUME 94.9 fL (81-99); MONOCYTES # (AUTO) 0.1 (0.2-0.8); MONOCYTES % 1.7 % (4.4-11.3); NEUTROPHILS # (AUTO) 6.4 (2.1-6.9); NEUTROPHILS % 75.5 % (38.7-80.0); PLATELET COUNT 147 x10e3/uL (140-360); RED BLOOD COUNT 5.12 x10e6/uL (4.3-5.7); RED CELL DISTRIBUTION WIDTH 13.9 % (11.7-14.4)
--- NOTE | 2018-11-27 11:12 | Diagnostic Imaging Report ---
EXAMINATION: CHEST SINGLE (PORTABLE) INDICATION: Hypertension COMPARISON: None FINDINGS: LINES/TUBES:None LUNGS:The lungs are well-inflated. No focal consolidation or pulmonary edema. PLEURA:No pleural effusion or pneumothorax. MEDIASTINUM:The cardiomediastinal silhouette appears normal in size and shape. The thoracic aorta appears tortuous. BONES/SOFT TISSUES:No acute osseous injury. ABDOMEN:No free air under the diaphragm. IMPRESSION: No focal pneumonia or pulmonary edema. Signed by: Edison Espinosa MD on 11/27/2018 11:09 AM
[2018-11-27 11:22] LABS: INR 0.93; PARTIAL THROMBOPLASTIN TIME 20.9 seconds (23.8-35.5)
[2018-11-27 11:30] LABS: ALANINE AMINOTRANSFERASE 35 IU/L (0-55); ALBUMIN 3.6 g/dL (3.5-5.0); ALKALINE PHOSPHATASE 86 IU/L (40-150); ANION GAP 15.7 mmol/L (8-16); BLOOD UREA NITROGEN 13 mg/dL (7-26); BUN/CREATININE RATIO 15 (6-25); CALCIUM 9.6 mg/dL (8.4-10.2); CARBON DIOXIDE 20 mmol/L (22-29); CHLORIDE 109 mmol/L (98-107); CREATININE, SERUM 0.84 mg/dL (0.72-1.25); EST GLOMERULAR FILTRATION RATE > 60 ML/MIN (60-); GLUCOSE 101 mg/dL (74-118); SODIUM 142 mmol/L (136-145)
[2018-11-27 11:35] LABS: POTASSIUM 2.7 mmol/L (3.5-5.1)
[2018-11-27] MEDS ORDERED: POTASSIUM CHLORIDE 20MEQ/100ML 200 ML IV ONE ×2 (12:00→14:30)
[2018-11-27 12:04] LABS: CREATINE KINASE MB 2.1 ng/mL (0-5.0)
--- NOTE | 2018-11-27 13:37 | NUR ---
lemon swabs to pt-npo
[2018-11-27] MEDS ORDERED: ONDANSETRON HCL INJ 2MG/ML 2ML 2 MG/ML VIAL IV PRN (14:30)
[2018-11-27] MEDS ORDERED: POTASSIUM CHLORIDE 10MEQ/100ML 200 ML IV ONE (14:30)
[2018-11-27] MEDS ORDERED: MORPHINE SULFATE 2 MG/ML SYR 1ML IV PRN (14:30)
[2018-11-27] MEDS ORDERED: MORPHINE SULFATE INJ 4 MG/ML INJ 1ML IV PRN (14:45)
[2018-11-27] MEDS ORDERED: NORVASC5 MG PO (14:54)
[2018-11-27] MEDS ORDERED: BENICAR HCT 401 EACH (14:54)
[2018-11-27] MEDS ORDERED: METOPROLOL TART25 MG PO (14:54)
--- NOTE | 2018-11-27 14:55 | NUR ---
nurse unable to take report, ophelia notified
[2018-11-27] MEDS: FAMOTIDINE 20 MG/2 ML VIAL IV SCH (15:30)
[2018-11-27] MEDS: SODIUM CHLORIDE 0.9% 1000ML 1,000 ML IV SCH ×2 (15:30→22:54)
--- NOTE | 2018-11-27 16:25 | NUR ---
Received patient from ER. Patient alert and oriented, in stable condition, no signs of distress or c/o pain at this time. All safety measures in place. Family at bedside. Will continue to monitor.
[2018-11-27] MEDS ORDERED: CHOLESTYRAMINE L4 GM PO (17:04)
--- NOTE | 2018-11-27 17:06 | NUR ---
Called Dr. Lowe for admission orders. Received orders to resume budesonide 3 mg tid. Will continue to monitor patient.
[2018-11-27 17:13] VITALS: BP 139/96
[2018-11-27 17:17] VITALS: BP 139/96
[2018-11-27 17:18] VITALS: BP 139/96
--- NOTE | 2018-11-27 19:11 | NUR ---
Bedside report given to night nurse. Patient in stable condition, no c/o pain or signs of distress at this time. All safety measures in place.
[2018-11-27 20:05] VITALS: BP 133/88
[2018-11-27] MEDS ORDERED: BUDESONIDE 3 MG CAPCR PO SCH (21:00)
[2018-11-28] VITALS (8 sets, daily range): BP systolic 110–189; BP diastolic 73–99
[2018-11-28] MEDS ORDERED: BUDESONIDE 3 MG CAPCR PO ONE
[2018-11-28] MEDS ORDERED: POTASSIUM CHLORIDE 40 MEQ in SODIUM CHLORIDE 0.45% 1,000 ML IV SCH ×2
[2018-11-28] MEDS ORDERED: SOD CHL 0.45%/POT CHL 20MEQ 1,000 ML IV SCH (00:45)
--- NOTE | 2018-11-28 02:50 | Consultation ---
DATE OF CONSULTATION: 11/27/2018 GI consult Note REASON FOR CONSULT: Multiple episodes of nausea and vomiting x1 day. HISTORY OF PRESENTING ILLNESS: A 73-year-old male, who is very well known to me. He has lymphocytic colitis. He was in this hospital last month. His diarrhea had resolved after he was started on budesonide. He has very well established histological diagnosis of lymphocytic colitis. He had a colonoscopy in [place] couple of months ago with colonic biopsies, biopsies were consistent with lymphocytic colitis. The patient has had a flu shot yesterday. He went to see his primary care doctor because his blood pressure was running high. He was started on amlodipine and metoprolol. He took just one dose of both medications today. Few hours after that he started feeling nausea, vomited couple of times. His brought him to the emergency room for further evaluation. He got admitted. He is denying any increase in the frequency of diarrhea. He has had only two loose bowel movement today. Denies any extraintestinal complaints. REVIEW OF SYSTEMS: Twelve point system reviewed. Symptomatology is limited to GI system. PAST MEDICAL HISTORY: Lymphocytic colitis, hypertension. PAST SURGICAL HISTORY: Colonoscopy done in [place] a couple of months ago. 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 SOCIAL HISTORY: , lives with his . No smoking, alcohol, or any illicit drug use. HOME MEDICATIONS: Amlodipine, metoprolol, Zofran, budesonide. INPATIENT MEDICATIONS: Famotidine, normal saline, IV fluid, budesonide, Zofran, and morphine. PHYSICAL EXAMINATION: VITAL SIGNS: Temperature 98.3, pulse 82, respiration 18, blood pressure 133/88, oxygen saturation 99% on room air. GENERAL: Not in any acute distress. HEENT: Oral mucosa is moist. Anicteric sclerae. CVS: S1, S2 regular. LUNGS: Bilaterally grossly clear. ABDOMEN: Soft, nondistended, nontender. No palpable mass or hernia. Positive bowel sounds. EXTREMITIES: Warm. No leg edema. LABORATORY DATA: WBC 8.46, hemoglobin 16, hematocrit 48.6, MCV 94.9, and platelet count 147. Sodium 142, potassium 2.7, chloride 109, bicarb 20, BUN 13, creatinine 0.84, glucose 101. Liver enzymes normal. PT 30, INR 0.93, PTT 20.9. Chest x-ray normal. IMPRESSION: 1. Acute nausea, vomiting, this has not been witnessed while he is in the hospital. This could be due to possible acute gastritis, likely due to blood pressure medication, which he started today. 2. Lymphocytic colitis, very well controlled with budesonide 3 mg three tablets daily. PLAN: Observe, IV fluids, replace potassium, PPI daily. Allow low-salt diet. If the patient do not develop further episode of any nausea, vomiting, then he can be discharged home. I thank Dr. Lowe for allowing me to participate in the care of this patient. Arash Alanis MD SA/DIYA /[id number]
[2018-11-28 05:41] LABS: BASOPHILS % 0.2 % (0.0-1.0); EOSINOPHILS # (AUTO) 0.1 (0.0-0.4); EOSINOPHILS % 1.2 % (0.0-6.0); HEMATOCRIT 40.4 % (38.2-49.6); HEMOGLOBIN 13.5 g/dL (14.0-18.0); LYMPHOCYTES # (AUTO) 1.2 (1.0-3.2); LYMPHOCYTES % 17.9 % (18.0-39.1); MEAN CORPUSCULAR HEMOGLOBIN 31.4 pg (28-32); MEAN CORPUSCULAR HGB CONC 33.4 g/dL (31-35); MONOCYTES # (AUTO) 0.5 (0.2-0.8); MONOCYTES % 8.2 % (4.4-11.3); NEUTROPHILS # (AUTO) 4.6 (2.1-6.9); PLATELET COUNT 125 x10e3/uL (140-360); RED CELL DISTRIBUTION WIDTH 14.4 % (11.7-14.4)
[2018-11-28 05:55] LABS: MAGNESIUM 1.5 MG/DL (1.3-2.1); PHOSPHORUS 2.9 MG/DL (2.3-4.7)
[2018-11-28 06:03] LABS: ALANINE AMINOTRANSFERASE 24 IU/L (0-55); ALBUMIN 2.5 g/dL (3.5-5.0); ALBUMIN/GLOBULIN RATIO 0.9 (0.8-2.0); ALKALINE PHOSPHATASE 64 IU/L (40-150); ANION GAP 10.5 mmol/L (8-16); BLOOD UREA NITROGEN 12 mg/dL (7-26); BUN/CREATININE RATIO 16 (6-25); CALCIUM 8.4 mg/dL (8.4-10.2); CARBON DIOXIDE 22 mmol/L (22-29); CHLORIDE 114 mmol/L (98-107); CREATININE, SERUM 0.74 mg/dL (0.72-1.25); EST GLOMERULAR FILTRATION RATE > 60 ML/MIN (60-); GLUCOSE 111 mg/dL (74-118); POTASSIUM 3.5 mmol/L (3.5-5.1); SODIUM 143 mmol/L (136-145)
[2018-11-28 06:04] LABS: LIPASE < 4 U/L (8-78)
--- NOTE | 2018-11-28 06:58 | NUR ---
BEDSIDE SHIFT REPORT GIVEN TO ONCOMING NURSE.PT RESTING IN BED WITH NO S/S OF DISTRESS.
--- NOTE | 2018-11-28 07:28 | NUR ---
Received bedside report from night nurse. Patient resting in bed, no signs of distress or c/o pain at this time. All safety measures in place. Family at bedside. Will continue to monitor.
[2018-11-28] MEDS ORDERED: AMLODIPINE BESYLATE 5 MG TAB PO SCH (09:00)
[2018-11-28] MEDS: FAMOTIDINE 20 MG/2 ML VIAL IV SCH (09:55)
[2018-11-28] MEDS: BUDESONIDE 3 MG CAPCR PO SCH (09:55)
[2018-11-28] MEDS ORDERED: HYDRALAZINE HCL 25 MG TAB PO PRN (11:15)
--- NOTE | 2018-11-28 13:07 | History and Physical ---
PRIMARY CARE PHYSICIAN: Tex Sen MD. BANKING ASSISTANT: Mohamud Gonzalez MD. CHIEF COMPLAINT: Nausea and vomiting and low blood pressure along with low potassium level. HISTORY OF PRESENT ILLNESS: The patient is a 73-year-old male, who is on steroids for lymphocytic colitis. The patient's colitis is stable. No diarrhea. He is on Norvasc 5 mg and increased to 10 mg daily. Apparently, the patient's blood pressure was elevated, went to see primary care physician, was told to resume metoprolol and Benicar HCT. The patient after taking those medications, blood pressure dropped down to less than 100 systolic and the patient started to have nausea and vomiting. The patient came in with basically low potassium of 2.7. His sodium level went up to 142. BUN and creatinine are 13 and 0.8 respectively. The patient was having nausea and vomiting quite a bit with blood. The patient was stable, however, IV fluids initiated and the patient is comfortable. He is not having any nausea and vomiting now. The patient is on Entocort for his lymphocytic colitis, may have increase in his blood pressure, but also at baseline, the patient is very anxious to get blood pressure monitored at home on a constant basis and blood pressure was elevated and went to PCP and reason for resume on his other blood pressure medication, which dropped the blood pressure. Discussed with the patient and his daughter numerous time repeatedly that those 3 medications, the Benicar HCT and the Lopressor should not be taken anymore, sent a note to primary and pharmacy as well. Adjustment of his blood pressure medication need to be taken from other medication, but not those 2 combination medications that was resumed. The patient is otherwise stable at this time. PAST MEDICAL HISTORY: Lymphocytic colitis and hypertension, fluctuating due to anxiety. SOCIAL HISTORY: The patient does not smoke or use alcohol. No regular drug. ALLERGIES: TO NO KNOWN ALLERGIES. HOME MEDICATIONS: List is reviewed. REVIEW OF SYSTEMS: The patient is completely asymptomatic at this time. PHYSICAL EXAMINATION: VITAL SIGNS: Temperature is 98, blood pressure 142/95 on IV fluid normal saline, pulse rate 50, and respirations 18. GENERAL: The patient is not in acute distress. He is awake. HEENT: Normocephalic and atraumatic. Pupils reactive. Anicteric. NECK: Supple grossly. PULMONARY: Clear. CARDIOVASCULAR: Regular rate and rhythm. ABDOMEN: Soft and unremarkable. EXTREMITIES: No cyanosis or edema. NEUROLOGIC: No focal deficit. LABORATORY DATA: Sodium is 143, potassium 3.5, chloride 114, bicarb 22, BUN 12, creatinine 0.7, and glucose 111. WBC 6.4, hemoglobin 13.5, hematocrit 40.4, and platelets 125. IMPRESSION: Hypokalemia secondary to nausea and vomiting and Benicar HCT-induced blood pressure low, nausea, vomiting, and bradycardia. PLAN: Adjustment of his Norvasc 10 mg once a day. Stop the IV fluids after the current bag. Replace potassium. Repeat lab work in the morning. Stop the metoprolol and the Benicar HCT and when he go home, we will give the patient as needed medication such as hydralazine for high blood pressure if he checked them. The patient is otherwise stable at this time. MD JEANETTE Dickson/DIYA /[id number]
[2018-11-28] MEDS ORDERED: AMLODIPINE BESYLATE 5 MG TAB PO NR (17:00)
--- NOTE | 2018-11-28 18:52 | NUR ---
Bedside report given to night nurse. Patient resting in bed, no s/s of distress or c/o pain at this time. All safety measures in place. Family at bedside.
--- NOTE | 2018-11-28 22:44 | Progress Note ---
DATE: 11/28/2018 SUBJECTIVE: The patient reports no nausea or vomiting. Tolerating low-sodium diet. REVIEW OF SYSTEMS: GENERAL: No fever or chills. CVS: No chest pain or palpitation. RESPIRATORY: No cough or expectoration. MEDICATIONS: Reviewed as per APR. He is getting hydralazine, budesonide, amlodipine and Zofran. OBJECTIVE: VITAL SIGNS: Temperature 95.6, pulse 55, respirations 18-20, blood pressure 189/99, oxygen saturation 100% on room air. GENERAL: Not in any acute distress. HEENT: Oral mucosa is moist. ABDOMEN: Soft, nondistended, nontender. No mass or hernia. Positive bowel sounds. LABORATORY DATA: WBC 6.44, hemoglobin down to 13.5 from 16, hematocrit 40.4, MCV 94 and platelet count 125. Sodium 143, potassium 3.5, up from 2.7, chloride 114, bicarb 22, BUN 12, creatinine 0.74 and glucose 111. Liver enzymes showed total bilirubin 2.9 up from 1.8, AST 18, ALT 24, alkaline phosphatase 64. ASSESSMENT: 1. Nausea, vomiting, likely related to medication, this has resolved. 2. Lymphocytic colitis, diarrhea, very well controlled on budesonide. PLAN: Continue low-salt diet and all outpatient medications. The patient can be discharged home from GI standpoint. Arash Alanis MD SA/DIYA /[id number]
[2018-11-29 00:22] VITALS: BP 144/87
[2018-11-29 05:38] VITALS: BP 139/85
[2018-11-29] MEDS ORDERED: AMLODIPINE BESYLATE 10 MG TAB PO SCH (06:00)
[2018-11-29 06:50] LABS: ANION GAP 10.9 mmol/L (8-16); BLOOD UREA NITROGEN 7 mg/dL (7-26); BUN/CREATININE RATIO 10 (6-25); CALCIUM 9.1 mg/dL (8.4-10.2); CARBON DIOXIDE 20 mmol/L (22-29); CHLORIDE 114 mmol/L (98-107); CREATININE, SERUM 0.73 mg/dL (0.72-1.25); EST GLOMERULAR FILTRATION RATE > 60 ML/MIN (60-); GLUCOSE 112 mg/dL (74-118); SODIUM 142 mmol/L (136-145)
--- NOTE | 2018-11-29 07:00 | NUR ---
BEDSIDE SHIFT REPORT FROM LGSW RN. PT DENIES NEEDS AT THIS TIME.
[2018-11-29 07:04] LABS: POTASSIUM 2.9 mmol/L (3.5-5.1)
[2018-11-29 08:29] VITALS: BP 159/96
[2018-11-29] MEDS: BUDESONIDE 3 MG CAPCR PO SCH (08:51)
[2018-11-29 09:00] VITALS: BP 159/96
[2018-11-29] MEDS ORDERED: MAGNESIUM SULFATE 2GM/50ML IV NR (10:00)
--- NOTE | 2018-11-29 10:28 | NUR ---
Met with Dr. Lowe to discuss plan of care. Pt remains in observation at this time. K+ has dropped again to 2.9. Dr. Lowe is having redraw at around 1:30pm. DC pending results. Nurse to call him with results.
[2018-11-29] MEDS: POTASSIUM CHLORIDE 10MEQ EA PO SCH ×2 (10:46→11:59)
[2018-11-29 11:45] VITALS: BP 145/84
[2018-11-29] MEDS ORDERED: POTASSIUM CHLORIDE 10MEQ EA PO NR (12:00)
[2018-11-29 14:48] LABS: ANION GAP 11.2 mmol/L (8-16); BLOOD UREA NITROGEN 9 mg/dL (7-26); BUN/CREATININE RATIO 14 (6-25); CALCIUM 8.9 mg/dL (8.4-10.2); CARBON DIOXIDE 22 mmol/L (22-29); CHLORIDE 114 mmol/L (98-107); CREATININE, SERUM 0.63 mg/dL (0.72-1.25); EST GLOMERULAR FILTRATION RATE > 60 ML/MIN (60-); GLUCOSE 124 mg/dL (74-118); POTASSIUM 3.2 mmol/L (3.5-5.1); SODIUM 144 mmol/L (136-145)
[2018-11-29] MEDS ORDERED: HYDRALAZINE HCL25 MG PO (15:23)
[2018-11-29] MEDS ORDERED: ZOFRAN8 MG PO (15:24)
[2018-11-29] MEDS ORDERED: MAGNESIUM SULFATE 2GM/50ML 50 ML IV ONE (15:30)
[2018-11-29] MEDS ORDERED: POTASSIUM CHLORIDE 20 MEQ TAB CR PO NR (15:45)
[2018-11-29 16:09] VITALS: BP 155/93
== END 2018-11-29 16:43 | disposition home or self-care (01) ==
LOC: ER 10:24 → ERHOLD 14:17 → MED/SURG2 16:19
PROVIDERS: ADMIT Internal Medicine; ATTEND Internal Medicine
DX: E87.6 Hypokalemia (principal); K52.832 Lymphocytic colitis; Z79.52 Long term (current) use of systemic steroids; I95.2 Hypotension due to drugs; T46.5X5A Adverse effect of other antihypertensive drugs, initial encounter
CPT/HCPCS: 36415 ×3; 71045; 80048; 80053 ×2; 82150; 82550; 82553; 82948; 83690 ×2; 83735; 84100; 84484; 85025 ×2; 85610; 85730; 87086; 93005; 99284; G0378 ×3; J2405; J3475; J3480; J7030

== ENCOUNTER 2021-09-09 09:39 | Emergency (ER) | payer MEDICARE, OTHER ==
[~2021-09-09] VITALS: Ht 162.6 cm; Wt 64.4 kg
[~2021-09-09 09:39] MED LIST changes: +AMLODIPINE BESY10 MG PO; +BENICAR HCT 401 EACH; +CHOLESTYRAMINE L4 GM PO; +HYDRALAZINE HCL25 MG PO; +METOPROLOL TART25 MG PO; +NORVASC5 MG PO; +OLMESARTAN-HCT1 EAC1 PO; +ZOFRAN8 MG PO
[2021-09-09] MEDS ORDERED: Morphine 4mg INJECTION 4 MG/ML INJ IV ONE (10:00)
[2021-09-09] MEDS ORDERED: TETANUS/DIPHTHERIA TOX ADULT 0.5 ML SYR IM ONE (10:00)
[2021-09-09] MEDS ORDERED: BUPIVACAINE HCL 0.25% 10ML MPF VIAL INJ ONE ×2 (10:29→10:30)
[2021-09-09] MEDS: SODIUM CHLORIDE 0.9% 1000ML 1,000 ML IV SCH ×2 (10:58→11:07)
[2021-09-09] MEDS ORDERED: MORPHINE SULFAT15 MG PO (11:09)
[2021-09-09] MEDS ORDERED: CEPHALEXIN500 MG PO (11:09)
== END 2021-09-09 11:59 | disposition home or self-care (01) ==
LOC: ER 09:46
DX: S68.123A Partial traumatic metacarpophalangeal amputation of left middle finger, initial encounter (principal); S68.125A Partial traumatic metacarpophalangeal amputation of left ring finger, initial encounter; W27.0XXA Contact with workbench tool, initial encounter; Y92.015 Private garage of single-family (private) house as the place of occurrence of the external cause
CPT/HCPCS: 29130; 73140; 90471; 90714; 99284; J0690; J2270; J7050

== ENCOUNTER 2024-10-23 12:09 | Emergency (ER) | payer MEDICARE ==
[~2024-10-23] VITALS: Ht 162.6 cm; Wt 74.9 kg
[~2024-10-23 12:09] MED LIST changes: +CEPHALEXIN500 MG PO; +LOPERAMIDE2 MG PO; +LOSARTAN POTAS100 MG PO; +MORPHINE SULFAT15 MG PO; +ONDANSETRON ODT4 MG PO; +ONDANSETRON ODT4 MG SL; +PANTOPRAZOLE SO40 MG PO
[2024-10-23 12:38] VITALS: TEMP 98.4
[2024-10-23] MEDS ORDERED: FLOMAX0.4 MG PO (13:35)
[2024-10-23] MEDS ORDERED: OMEPRAZOLE40 MG PO (13:35)
[2024-10-23] MEDS ORDERED: METFORMIN HCL500 M1 PO (13:35)
[2024-10-23] MEDS ORDERED: PRAVASTATIN SOD10 MG (13:35)
[2024-10-23] MEDS ORDERED: LISINOPRIL10 MG PO (13:35)
[2024-10-23 14:04] VITALS: PULSE 57; RESP 14; O2SAT 99
[2024-10-23] MEDS ORDERED: AMLODIPINE BESYL5 MG PO (14:13)
== END 2024-10-23 14:27 | disposition home or self-care (01) ==
LOC: FSED 12:26
DX: I10 Essential (primary) hypertension (principal); K22.6 Gastro-esophageal laceration-hemorrhage syndrome; R94.31 Abnormal electrocardiogram [ECG] [EKG]
CPT/HCPCS: 80053; 84484; 85025; 93005; 99284